=== PATIENT | male | born 1950 | race Caucasian/White ===

== ENCOUNTER 2017-10-14 10:04 | Outpatient (CLI) | payer MEDICARE ==
[~2017-10-14 10:04] MED LIST: Iopamidol 370 76% 100 ML VIAL ONE
--- NOTE | 2017-10-14 13:18 | CT ---
CT OF ABDOMEN AND PELVIS WITH AND WITHOUT CONTRAST CT UROGRAM: DATE: 10/14/17. COMPARISON: None. HISTORY: Elevated liver enzymes, microhematuria., history of prostate cancer. TECHNIQUE: Serial axial CT imaging is obtained at 5 mm intervals from the lung bases through the pubic symphysis with and without IV contrast using a CT urogram protocol. Coronal reformatted imaging obtained. FINDINGS: The imaged lung bases are unremarkable. Incompletely imaged transvenous pacing device present. No free intraperitoneal air. Multiple gallstones are present. The liver, spleen, pancreas, and adrenal glands are unremarkable. The kidneys demonstrate multiple focal areas of cortical thinning, evidence of bilateral scar. No so lid renal mass, nephrolithiasis, or evidence of obstructive uropathy is noted. Postoperative clips are noted in the prostate bed, limiting detailed assessment of the prostate glan d/postoperative site. There is abnormal wall thickening of the sigmoid colon measuring at least 11-12 cm in length. This i s best seen on axial image 79. There is an exophytic soft tissue mass which is located along the superior and left lateral margin o f the abnormal colon with marked luminal narrowing of the colon in this region. This suggests a tumo r either emanating from the colon or associated with the peripheral margin of the colon. This extri nsic soft tissue mass in the left hemipelvis measures at least 2.9 x 4.6 cm. There is stranding of t he adjacent pericolonic fat. There is an enlarged node in the presacral space to the right of midlin e on image 80 measuring 7 mm. There are enlarged nodes within the pericolonic fat within the left he mipelvis, measuring up to 9 mm in short axis dimension on image 74. There is no evidence for bowel obstruction. There is retroperitoneal lymphadenopathy, including a node in the aortocaval region measuring 1.5 cm short axis dimension. Enlarged nodes are seen along the course of the left common iliac artery measu ring up to 1.3 cm. Enlarged node measuring 1.7 cm in short axis dimension is seen posterior to the e xternal iliac artery on the left. No enlarged inguinal nodes. No lymphadenopathy is noted in the ri ght hemipelvis otherwise. Imaged osseous structures demonstrate no worrisome lytic or blastic lesions. Bilateral L5 pars defec ts are present with mild anterolisthesis of L5 on S1. IMPRESSION: Prominent irregular area of wall thickening involving the sigmoid colon with extrinsic mass lesion in the left hemipelvis. This is highly suspicious for malignancy, likely on the basis of colonic malig ryan. There is lymphadenopathy seen regionally within the pericolonic fat as well as within the lef t hemipelvis and retroperitoneum. CODE T POS: KIANA
--- NOTE | 2017-10-14 15:14 | NM ---
RADIONUCLIDE BONE SCAN: History: Prostate cancer. Initial staging. FINDINGS: Heterogeneous uptake involves the shoulders, knees, and ankles and feet. Urinary bladder initially ob scures the sacrum. Images obtained after draining of the bladder shows contamination of the right ant erior tissues. No abnormal bone uptake is apparent on the posterior view. IMPRESSION: Degenerative changes, most pronounced at the right foot. No scintigraphic evidence of skeletal metast ases. POS: ROBERT
== END 2017-10-14 10:05 | disposition home or self-care (01) ==
LOC: CT 10:04
PROVIDERS: ATTEND Urology
DX: C61 Malignant neoplasm of prostate (principal); R31.29 Other microscopic hematuria; R74.8 Abnormal levels of other serum enzymes; I10 Essential (primary) hypertension
CPT/HCPCS: 74178; 78306; 82565; A9503

== ENCOUNTER 2018-11-13 08:39 | Emergency (ER) | payer MEDICARE ==
[2018-11-13 09:45] LABS: #Eosinphils 0.2 thou/uL (0.0-0.7); #Lymphocytes 1.3 thou/uL (1.20-3.40); #Monocytes 0.6 thou/uL (0.11-0.59); #Neutrophils 5.1 thou/uL (1.40-6.50); %Basophils 0.7 % (0.0-1.0); %Eosinophils 3.4 % (0.0-10.0); %Lymphocytes 18.3 % (21.0-51.0); %Monocytes 7.6 % (0.0-10.0); %Neutrophils 70.1 % (42.0-75.0); Hemoglobin 13.6 g/dL (14.0-18.0); Mean Corpuscular HGB CONC 33.5 g/dL (32.0-36.0); Mean Corpuscular Hemoglobin 30.4 pg (27.0-31.0); Mean Corpuscular Volume 90.7 fL (78.0-98.0); Platelet Count 273 thou/uL (130-400); RBC Distribution Width 13.2 % (11.5-14.5); Red Blood Cell (RBC) Count 4.46 mill/uL (4.70-6.10); White Blood Cell (WBC) Count 7.3 thou/uL (4.8-10.8)
[2018-11-13 10:14] LABS: ALT (SGPT) 39 U/L (8-55); AST (SGOT) 30 U/L (5-34); Albumin 3.9 g/dL (3.4-4.8); Alkaline Phosphatase 111 U/L (40-150); Anion Gap 13 mmol/L (10-20); BUN (Urea Nitrogen) 17 mg/dL (8.4-25.7); Bilirubin, Total 1.5 mg/dL (0.2-1.2); Calc. Creatinine Clearance 0 mL/min (70-130); Calcium 9.5 mg/dL (7.8-10.44); Carbon Dioxide 29 mmol/L (23-31); Chloride 97 mmol/L (98-107); Estimated GFR-MDRD 44; Globulin 3.3 g/dL (2.4-3.5); Glucose 91 mg/dL (80-115); Potassium 3.4 mmol/L (3.5-5.1); Protein, Total 7.2 g/dL (5.8-8.1); Sodium 136 mmol/L (136-145)
== END 2018-11-13 11:45 | disposition home or self-care (01) ==
LOC: ERS 08:39
DX: K64.9 Unspecified hemorrhoids (principal); Z86.73 Personal history of transient ischemic attack (TIA), and cerebral infarction without residual deficits
CPT/HCPCS: 36416; 80053; 82274; 83630; 85025; 87045; 87046; 87324; 87328; 87329; 87449; 87899; 99285

== ENCOUNTER 2018-11-14 10:59 | Emergency (ER) | payer MEDICARE ==
--- NOTE | 2018-11-14 15:44 | RAD ---
PORTABLE CHEST 1 VIEW: Date: 11/14/18 Time: 1514 hours HISTORY: Preoperative evaluation. FINDINGS: Comparison made with exam of 12/14/17. The heart size is normal. The aorta is tortuous. A left-sided pacemaker device remains in place. No l obar consolidation, pneumothoraces, katty pulmonary edema, or pleural effusions are seen. IMPRESSION: No acute process. POS: KIANA
== END 2018-11-14 16:20 | disposition home or self-care (01) ==
LOC: ERS 10:59
DX: K62.89 Other specified diseases of anus and rectum (principal); K64.4 Residual hemorrhoidal skin tags; Z86.73 Personal history of transient ischemic attack (TIA), and cerebral infarction without residual deficits; Z79.899 Other long term (current) drug therapy
CPT/HCPCS: 71045

== ENCOUNTER 2018-11-18 10:57 | Inpatient (IN) | payer MEDICARE ==
[2018-11-18] MEDS ORDERED: Ondansetron ODT 4 MG TAB PO PRN (13:22)
[2018-11-18] MEDS ORDERED: Ondansetron PF 4 MG/2 ML Vial IVP PRN (13:22)
[2018-11-18 13:29] LABS: #Basophils 0.1 thou/uL (0.0-0.2); #Eosinphils 0.2 thou/uL (0.0-0.7); #Lymphocytes 1.2 thou/uL (1.20-3.40); #Monocytes 0.8 thou/uL (0.11-0.59); %Basophils 0.7 % (0.0-1.0); %Eosinophils 2.8 % (0.0-10.0); %Lymphocytes 14.8 % (21.0-51.0); %Monocytes 9.7 % (0.0-10.0); Hemoglobin 13.8 g/dL (14.0-18.0); Mean Corpuscular HGB CONC 33.5 g/dL (32.0-36.0); Mean Corpuscular Hemoglobin 30.6 pg (27.0-31.0); Mean Corpuscular Volume 91.3 fL (78.0-98.0); Mean Platelet Volume 9.4 fL (7.4-10.4); Platelet Count 250 thou/uL (130-400); RBC Distribution Width 13.1 % (11.5-14.5); Red Blood Cell (RBC) Count 4.52 mill/uL (4.70-6.10); White Blood Cell (WBC) Count 8.3 thou/uL (4.8-10.8)
--- NOTE | 2018-11-18 13:54 | PDOC.FPRHP ---
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 The pt's ex and caregivers were here to assist with the history. Pt has been seen in the ED 3x this week for these symptoms as well as some intermittent abdominal pain. Each workup was negative for any acute findings aside from mild dehydration. Caregiver noted that the patient's stools have changed throughout the week, initially having some blood and appearing yellow, and more recently containing mucous and being very foul smelling. Ex states that the pt is unable to keep almost anything down at this point and has not had a bowel movement in over a day which is abnormal for him which she attributes to his decreased PO intake. At this time the pt denies any abdominal pain or other symptoms. He is able to respond with non-verbal cues after reading prompts and is very cognitively sharp. Pt was diagnosed last year with a recurrence of his previously treated prostate cancer. Pt has had problems with esophageal strictures before requiring dilation. For full indepth medical history please refer to pt's narrative medical history in his physical chart. - Allergies/Adverse Reactions Allergies Allergy/AdvReac Type Severity Reaction Status Date / Time Iodine and Iodide Containing Allergy Verified 11/18/18 15:01 Produc - Home Medications Medication Instructions Recorded Confirmed Type Apixaban [Eliquis] 5 mg PO BID 11/18/18 11/18/18 History Atorvastatin Calcium 40 mg PO HS 11/18/18 11/18/18 History Carvedilol 6.25 mg PO BID-WM 11/18/18 11/18/18 History Divalproex [Depakote] 125 mg PO BID 11/18/18 11/18/18 History Escitalopram Oxalate 10 mg PO QAM 11/18/18 11/18/18 History Metronidazole [metroNIDAZOLE] 500 mg PO TID 11/18/18 11/18/18 History Omeprazole 10 mg PO DAILY 11/18/18 11/18/18 History Ranitidine HCl 150 mg PO BID 11/18/18 11/18/18 History Torsemide 20 mg PO DAILY 11/18/18 11/18/18 History Zinc Oxide [Desitin Cream] 1 applic TOP ASDIR PRN 11/18/18 11/18/18 History rOPINIRole HCl [Ropinirole HCl] 1 mg PO BID 11/18/18 11/18/18 History traZODone HCl [Trazodone HCl] 50 mg PO HS 11/18/18 11/18/18 History - History PMHx: CHF, afib - pacer, prostate CA, UTI, CVA, bowel resection, non- obstructive cardiomypathy, JOVANY, RLS, diverticulitis PSHx: Ankle surgery, esophageal dilation, colostomy with reversal FHx: Non contributory Social: Non contributory - Review of Systems ROS unobtainable: other (Difficult to obtain completely to due aphasia) General: reports: weight/appetite/sleep changes (decreased). denies: fever/ chills Respiratory: reports: cough (when eating). 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 denies: abdominal pain (none right now , intermittently earlier in the week) Genitourinary: reports: incontinence (voids in a pull up) Skin: reports: rashes (gluteal irritation). denies: jaundice Musculoskeletal: denies: swelling Neurological: reports: other (Denies any lightheadness or dizziness) - Vital signs BP: 116/63 HR: 69 RR: 18 Tmax: 98.0 Pox: 97% on RA Wt: 83.0 - Physical Exam Constitutional: NAD, awake, alert and oriented, well developed HEENT: normocephalic and atraumatic, EOMI, no scleral icterus Neck: FROM, no JVD Heart: RRR, normal S1/S2, no edema Lungs: CTAB, no respiratory distress, good air movement, no rales/rhonchi, no wheezing Abdomen: soft, non-tender -Abdomen: Hypoactive bowel sounds -Neurological: aphasia, ataxic upper extremities without FROM Skin: no jaundice -Skin: Pale, cap refill 3-4 seconds Heme/Lymphatic: no unusual bruising or bleeding Psychiatric: good judgment and insight, other (unable to otherwise asses) FMR H&P: Results - Labs Result Diagrams: 11/19/18 04:14 11/19/18 04:14 Lab results: WBC 8.3 thou/uL (4.8-10.8) 11/18/18 12:47 Hgb 13.8 g/dL (14.0-18.0) L 11/18/18 12:47 Hct 41.3 % (42.0-52.0) L 11/18/18 12:47 MCV 91.3 fL (78.0-98.0) 11/18/18 12:47 Plt Count 250 thou/uL (130-400) 11/18/18 12:47 Neutrophils % 72.0 % (42.0-75.0) 11/18/18 12:47 FMR H&P: A/P - Problem List (1) Intractable vomiting with nausea Current Visit: Yes Status: Acute Code(s): R11.2 - NAUSEA WITH VOMITING, UNSPECIFIED (2) Hyperbilirubinemia Current Visit: Yes Status: Acute Code(s): E80.6 - OTHER DISORDERS OF BILIRUBIN METABOLISM (3) CHF (congestive heart failure) Current Visit: Yes Status: Chronic Code(s): I50.9 - HEART FAILURE, UNSPECIFIED Qualifiers: Heart failure chronicity: chronic (4) History of CVA (cerebrovascular accident) Current Visit: Yes Status: Chronic Code(s): Z86.73 - PRSNL HX OF TIA (TIA), AND CEREB INFRC W/O RESID DEFICITS (5) Diverticulosis Current Visit: Yes Status: Chronic Code(s): K57.90 - DVRTCLOS OF INTEST, PART UNSP, W/O PERF OR ABSCESS W/O BLEED (6) Prostate CA Current Visit: Yes Status: Chronic Code(s): C61 - MALIGNANT NEOPLASM OF PROSTATE - Plan Chronic diarrhea - Stool ova and parasite, Stool cultures, Fecal lactoferrin - C. diff test earlier this week was indeterminate, will repeat - ESR and TSH ordered to look for chronic inflammation or endocrine cause of diarrhea - CT abdomen and pelvis with and without - pt has allergy to contrast so will pre-medicate today and perform study tomorrow - GI consulted - appreciate recs Intractable vomiting with nausea and mild dehydration - Advance diet as tolerated - PRN zofran available - IVF w/ NS @ 120 Dysphagia - Hx of esophageal dilation - Speech therapy consult Hyperbilirubinemia - Tbili - 1.6 - Continue to trend CHF - Hold torsemide due to being volume down Afib - Continue eliquis - Will hold if any need for procedural intervention Hx CVA w/ Aphasia - Continue home meds, eliquis Prostate Cancer -Will await imaging from CT ab/pelvis. Could exacerbating symptoms as above. -May consider Oncology consult. Condition: Stable Code Status: DNAR Diet: AAT IVF: NS @ 120 Dispo: Admit to oncology, CT tomorrow, GI consulting, expected LOS >48hr FMR H&P: Upper Level - Pertinent history I was present with my international marketing intern during the interview and HPI. I agree with the typed history above. I made edits as I saw fit. Pt has very well typed out narrative medical history in his chart available for review if more information is needed. - Pertinent findings Pt had increased capillary refill. He had no pain to palpation in his abdomen. Pt had normal BS. Pt is aphasic from prior stroke. - Plan Date/Time: 11/18/18 1351 I, Alf Fitzgerald, have evaluated this patient and agree with findings/ plan as outlined by international marketing intern resident. Pertinent changes/additions are listed here. Chronic Diarrhea -Agree with plan above. Elevated Bilirubin -Will continue to trend CMP. -Will await results of CT imaging. May consider RUQ U/S Prostate Cancer -Getting CT with contrast. Will await results. -May consider consultation with Oncology. Will continue all his home meds for his chronic medical problems at this time. Addendum - Attending - Attending Attestation Date/Time: 11/19/18 1100 I personally evaluated the patient and discussed the management with Dr. Rolon on 11/18/2018 I agree with the History, Examination, Assessment and Plan documented above with any addition or exceptions noted below - 67 yo male w/ hx of aphasia 2/2 CVA in 2013, A-fib, RLS, prostate cancer presents with nausea, vomiting, and diarrhea for the last 1 month. Pt has been seen in the ED 3x this week for these symptoms as well as some intermittent abdominal pain. Has had negative stool studies. Caregiver noted that the patient's stools have changed throughout the week, initially having some blood and appearing yellow, and more recently containing mucous and being very foul smelling. PMH/PSH/Meds/All reviewed and agree with resident's documentation. Afebrile VSS Exam repeated by me and agree with resident's findings. A/P: 1) Dehydration- Admit to medical; hydrate with IVF. Monitor lytes. 2) Chronic N/V/D - will repeat stool studies. Obtain CT abd/pelvis. GI already consulted. 3) Afib- continue home meds.
[2018-11-18 14:04] LABS: ALT (SGPT) 23 U/L (8-55); AST (SGOT) 28 U/L (5-34); Albumin 4.2 g/dL (3.4-4.8); Alkaline Phosphatase 109 U/L (40-150); Anion Gap 14 mmol/L (10-20); BUN (Urea Nitrogen) 14 mg/dL (8.4-25.7); Bilirubin, Total 1.6 mg/dL (0.2-1.2); Calc. Creatinine Clearance 60 mL/min (70-130); Calcium 9.8 mg/dL (7.8-10.44); Carbon Dioxide 29 mmol/L (23-31); Chloride 97 mmol/L (98-107); Estimated GFR-MDRD 51; Globulin 3.7 g/dL (2.4-3.5); Glucose 84 mg/dL (80-115); Lipase 30 U/L (8-78); Potassium 3.2 mmol/L (3.5-5.1); Protein, Total 7.9 g/dL (5.8-8.1); Sodium 137 mmol/L (136-145)
[2018-11-18] MEDS ORDERED: Boudreaux's Butt Paste 60 GM TUBE TOP PRN (15:02)
[2018-11-18] MEDS ORDERED: Nystatin/Triamcinolone Cream 15 GM TUBE TOP PRN (15:02)
[2018-11-18] MEDS ORDERED: Zinc Oxide 20% Oint 30 GM TUBE TOP PRN (15:19)
[2018-11-18] MEDS: Sodium Chloride 0.9% 1,000 ML IV SCH ×2 (15:26→23:06)
[2018-11-18] MEDS: Carvedilol 6.25 MG TAB PO SCH (17:30)
[2018-11-18] MEDS ORDERED: Potassium Chloride 20 MEQ TAB PO SCH (17:45)
[2018-11-18] MEDS: Atorvastatin Calcium 40 MG TAB PO SCH (20:07)
[2018-11-18] MEDS: rOPINIRole HCl 1 MG TAB PO SCH (20:07)
[2018-11-18] MEDS: predniSONE 50 MG TAB PO SCH (20:08)
[2018-11-18] MEDS: Apixaban 5 MG TAB PO SCH (20:08)
[2018-11-18] MEDS: traZODone HCl 50 MG TAB PO SCH (20:08)
[2018-11-18] MEDS: Divalproex Sodium 125 mg Sprinkle Capsule PO SCH (20:08)
[2018-11-18] MEDS: Pantoprazole 40 MG VIAL IVP SCH (20:10)
[2018-11-19] MEDS: predniSONE 50 MG TAB PO SCH ×2 (01:58→08:04)
--- NOTE | 2018-11-19 03:28 | CON ---
DATE OF CONSULTATION: 11/18/2018 REASON FOR CONSULTATION: Chronic nausea, vomiting, and diarrhea. CONSULTING PHYSICIAN: Akbar Rolon DO HISTORY OF PRESENT ILLNESS: The patient is a 67-year-old male with past medical history of aphasia secondary to a cerebrovascular accident in 2012, prostate cancer status post treatment, congestive heart failure, hypertension, and obstructive sleep apnea, who was admitted to the hospital for evaluation of chronic nausea, vomiting, and diarrhea. Per chart review, the patient had been having increased nausea, vomiting, and diarrhea over the last 30 days for which the patient had sought healthcare assistance both at the [facility] ER as well as the [facility] ER over the last week to week and a half. On evaluation in the ER, there was noted to be no significant abnormalities and he was ultimately discharged to home. However, he did not experience any relief in his symptoms with more conservative management and was subsequently evaluated in the GI Outpatient Clinic earlier today. The patient currently states that he has been having the diarrhea for the last 30 days characterized as having 7-10 liquid bowel movements per day ([place] 7) with no difficulty with defecation. His stools are characterized more as watery mucoid like stools but upon questioning the patient about possible blood in his stool, he did state the affirmative. This was associated with increased generalized abdominal pain although per review of the outpatient workup earlier today, it seemed to be more concentrated in the left lower quadrant. Other than that, the patient endorses increased fecal urgency, weight loss (unknown amount) during the same time but denies any fevers, chills, dysphagia, odynophagia, or constipation. Of note, during the course of this interview, no additional family members were at bedside with the bulk of the information received from the patient himself. However, he is mostly nonverbal, but was able to nod and shake his head to the affirmative and negative respectively. REVIEW OF SYSTEMS: A 10-category review of systems was reviewed with the patient with all responses negative except for the pertinent positives as listed in the HPI. PAST MEDICAL HISTORY: As per HPI. PAST SURGICAL HISTORY: EGD with esophageal dilation in the past, ankle surgery, colonic resection with colostomy, and subsequent reanastomosis. FAMILY HISTORY: Denies any GI malignancies. SOCIAL HISTORY: Denies any tobacco, alcohol, or illicit drug use. OUTPATIENT MEDICATIONS: Reviewed. ALLERGIES: IODINE. PHYSICAL EXAMINATION: VITAL SIGNS: Temperature 97.5, pulse 70, blood pressure 118/65, respiratory rate 16, saturating 98% on room air. GENERAL: The patient was lying in bed, in no acute distress. Alert, but difficult to assess sensorium due to his aphasic status. HEENT: Normocephalic, atraumatic. NECK: Supple. No JVD or scleral icterus noted. CARDIOVASCULAR: Regular rate and rhythm with no discernible murmurs, gallops, or rubs. RESPIRATORY: Clear to auscultation bilaterally with no discernible wheezes or rales. ABDOMEN: Normoactive bowel sounds. Soft, nontender, and nondistended. EXTREMITIES: No cyanosis, clubbing, or edema. LABORATORY DATA: CBC with a white blood cell count of 8.3, hemoglobin 13.8, hematocrit 41.3, and platelets 250. Chemistry with a sodium of 137, potassium 3.2, chloride 97, CO2 of 29, BUN 14, creatinine 1.4, glucose 84, AST 28, ALT 23, alkaline phosphatase 109, total bilirubin 1.6, CRP 1.48, albumin 4.2, lipase 30, TSH 0.767. IMAGING DATA: Chest x-ray performed on November 14, 2018, showed a left-sided pacemaker device in place with no lobar consolidation pneumothoraces or pleural effusion. His most recent EGD was performed on January 04, 2018, which showed evidence of Nancy esophagitis and a small esophageal stricture that was then subsequently dilated. Most recent colonoscopy was on November 04, 2017, which showed severe sigmoid diverticulosis with luminal narrowing of the colon in that region, but no other abnormalities. ASSESSMENT AND PLAN: The patient is a 67-year-old male with past medical history of aphasia secondary to cerebrovascular accident, prostate cancer status post treatment, congestive heart failure, hypertension, obstructive sleep apnea, diverticulitis status post colonic resection and reanastomosis, presenting with nausea, vomiting, diarrhea, and abdominal pain. Diarrhea/abdominal pain. The patient is presenting with increased nausea, vomiting, and diarrhea that has been present for approximately the last 30 days, characterized as having approximately 7-10 liquid bowel movements per day. Given his significant healthcare exposures in the past, the possibility of an infectious etiology is more likely, especially with recent testing in the [facility] showing an indeterminate stool study for Clostridium difficile. However, given the chronic nature of this, other colonic/stool pathogen cannot be ruled out at this time although stool studies were obtained fairly recently and were negative. Differential could include infectious etiology, esophagitis, gastritis, bacterial gastroenteritis (less likely given time frame) mesenteric ischemic colitis and/or GI neoplasm (much less likely given negative studies in the last year). RECOMMENDATIONS: 1. We would repeat his infectious stool studies for possible pathogen that might be contributing to his current clinical picture. 2. We would obtain a CT of the abdomen and pelvis for a more global picture for any intraabdominal pathology. 3. If the above studies are negative, we then proceed with any repeat EGD and colonoscopy for intraluminal evaluation. 4. Pain control per primary team. 5. We would start the patient on aggressive antiemetic support with scheduled Zofran and promethazine for any breakthrough symptoms. 6. We would start the patient primarily on a liquid diet and advance as tolerated. We will continue to follow. Please call with any questions. Job ID: [id number]
[2018-11-19 04:42] LABS: #Lymphocytes 0.6 thou/uL (1.20-3.40); #Monocytes 0.1 thou/uL (0.11-0.59); #Neutrophils 5.7 thou/uL (1.40-6.50); %Eosinophils 0.1 % (0.0-10.0); %Lymphocytes 8.9 % (21.0-51.0); %Monocytes 1.7 % (0.0-10.0); %Neutrophils 89.4 % (42.0-75.0); Hemoglobin 12.7 g/dL (14.0-18.0); Mean Corpuscular HGB CONC 34.4 g/dL (32.0-36.0); Mean Corpuscular Hemoglobin 31.4 pg (27.0-31.0); Mean Corpuscular Volume 91.1 fL (78.0-98.0); Mean Platelet Volume 9.3 fL (7.4-10.4); Platelet Count 219 thou/uL (130-400); Red Blood Cell (RBC) Count 4.05 mill/uL (4.70-6.10); White Blood Cell (WBC) Count 6.4 thou/uL (4.8-10.8)
[2018-11-19 05:08] LABS: ALT (SGPT) 19 U/L (8-55); AST (SGOT) 24 U/L (5-34); Albumin 3.5 g/dL (3.4-4.8); Alkaline Phosphatase 94 U/L (40-150); Anion Gap 11 mmol/L (10-20); BUN (Urea Nitrogen) 14 mg/dL (8.4-25.7); Bilirubin, Total 1.3 mg/dL (0.2-1.2); Calc. Creatinine Clearance 70 mL/min (70-130); Calcium 8.9 mg/dL (7.8-10.44); Carbon Dioxide 25 mmol/L (23-31); Chloride 103 mmol/L (98-107); Estimated GFR-MDRD 60; Globulin 3.2 g/dL (2.4-3.5); Glucose 132 mg/dL (80-115); Potassium 4.1 mmol/L (3.5-5.1); Protein, Total 6.7 g/dL (5.8-8.1); Sodium 135 mmol/L (136-145)
--- NOTE | 2018-11-19 05:29 | PDOC.FM ---
- Subjective Subjective: Doing well. No complaints. No nausea and vomiting overnight. He is not eating much currently. - Objective MAR Reviewed: Yes Vital Signs & Weight: Vital Signs (12 hours) Temp Pulse Resp BP Pulse Ox 11/19/18 03:29 97.5 F L 69 16 103/64 96 11/18/18 23:25 97.9 F 70 16 102/60 97 11/18/18 20:10 98 11/18/18 20:00 97.5 F L 70 16 118/65 98 Weight Admit Weight 83.007 kg Weight 83.007 kg Result Diagrams: 11/19/18 04:14 11/19/18 04:14 Phys Exam - Physical Examination Constitutional: NAD HEENT: moist MMs Neck: supple Respiratory: clear to auscultation bilateral Cardiovascular: RRR, no significant murmur Gastrointestinal: soft, non-tender, positive bowel sounds Musculoskeletal: no edema, pulses present Neurological: non-focal, moves all 4 limbs Lymphatic: no nodes Psychiatric: normal affect Skin: no rash Dx/Plan (1) Intractable vomiting with nausea Code(s): R11.2 - NAUSEA WITH VOMITING, UNSPECIFIED Status: Acute (2) Hyperbilirubinemia Code(s): E80.6 - OTHER DISORDERS OF BILIRUBIN METABOLISM Status: Acute (3) CHF (congestive heart failure) Code(s): I50.9 - HEART FAILURE, UNSPECIFIED Status: Chronic Qualifiers: Heart failure chronicity: chronic (4) History of CVA (cerebrovascular accident) Code(s): Z86.73 - PRSNL HX OF TIA (TIA), AND CEREB INFRC W/O RESID DEFICITS Status: Chronic (5) Diverticulosis Code(s): K57.90 - DVRTCLOS OF INTEST, PART UNSP, W/O PERF OR ABSCESS W/O BLEED Status: Chronic (6) Prostate CA Code(s): C61 - MALIGNANT NEOPLASM OF PROSTATE Status: Chronic - Plan Plan: Chronic diarrhea - Stool ova and parasite, Stool cultures for camp & E. coli, Fecal lactoferrin, C. diff, Fecal fat: pending - ESR: 21 and TSH: 0.77, so unlikely chronic inflammation or endocrine causes of diarrhea - CT abdomen and pelvis shows pericolonic fat stranding and abd LAD significant for possible neoplastic process. Colonoscopy recommended if stool studies negative. - GI consulted - appreciate recs. Will repeat EGD if studies are negative. -Scheduled Zofran for symptom relief and promethazine for breakthrough symptoms Intractable vomiting with nausea and mild dehydration - Liquid diet & advance as tolerated - IVF w/ NS @ 120 Dysphagia - Hx of esophageal dilation - Speech therapy consult Hyperbilirubinemia - Tbili - 1.6 > 1.3 - Continue to trend CHF - Hold torsemide due to being volume down Afib - Continue eliquis - Will hold if any need for procedural intervention Hx CVA w/ Aphasia - Continue home meds, eliquis Prostate Cancer Radiation in 2000 -May consider Oncology consult. Condition: Stable Code Status: DNAR Diet: Clear Liquids, AAT IVF: NS @ 120 Dispo: Admit to oncology, CT tomorrow, GI consulting, expected LOS >48hr
[2018-11-19] MEDS ORDERED: Promethazine HCl 25 MG/ML VIAL IM/IV PRN (06:34)
[2018-11-19] MEDS: Sodium Chloride 0.9% 1,000 ML IV SCH ×3 (06:36→21:35)
[2018-11-19] MEDS ORDERED: Sodium Chloride 0.9% 500 ML IV SCH (07:30)
[2018-11-19] MEDS ORDERED: Sodium Chloride 0.9% 500 ML IVPB SCH (07:45)
[2018-11-19] MEDS ORDERED: diphenhydrAMINE 50 MG CAP PO SCH (08:00)
[2018-11-19] MEDS: Ondansetron PF 4 MG/2 ML Vial IVP SCH ×3 (08:04→19:43)
[2018-11-19] MEDS ORDERED: Enoxaparin Sodium 40 MG/0.4 ML SYRINGE SC SCH (09:00)
[2018-11-19] MEDS ORDERED: Prevnar 13-Val Conj/PF 0.5 ML SYRINGE IM ONE (09:00)
[2018-11-19] MEDS: Apixaban 5 MG TAB PO SCH ×2 (09:41→21:34)
[2018-11-19] MEDS: rOPINIRole HCl 1 MG TAB PO SCH ×2 (09:41→21:34)
[2018-11-19] MEDS: Divalproex Sodium 125 mg Sprinkle Capsule PO SCH ×2 (09:41→21:34)
[2018-11-19] MEDS: Carvedilol 6.25 MG TAB PO SCH ×2 (09:41→16:37)
[2018-11-19] MEDS: Escitalopram Oxalate 10 mg Tablet PO SCH (09:42)
--- NOTE | 2018-11-19 09:43 | CT ---
Exam: CT ABDOMEN WITH AND WITHOUT CONTRAST CT PELVIS WITH AND WITHOUT CONTRAST: HISTORY: Persistent nausea, vomiting, and diarrhea. COMPARISON: 10/14/2017. FINDINGS: Abdomen CT: Dependent atelectatic changes in lung bases. Heart is enlarged. There are transvenous pacing wires. No significant pericardial fluid. CT evidence of cholelithiasis. Appropriate enhancement of the liver, spleen, pancreas, and adrenal glands. Symmetric enhancement of the kidneys. There is evidence of multifocal renal cortical thinning, likely due to scar from remote insult. Bilaterally no obstructive uropathy.. No gastrohepatic, retrocrural lymphadenopathy. No mesenteric mass, lymphadenopathy, free air or fluid. Gastric mucosa, duodenum and multiple normal caliber small bowel loops are identified. No evidence of high-grade obstruction. Ileocecal junction is normal. Normal caliber appendix. Bowel wall thickening with mild pericolonic fat stranding and lymphadenopathy involving the distal sigmoid colon and rectum. There is circumferential mucosal thickening and bowel wall thickening at the level of rectum. There are scattered nonspecific retroperitoneal lymph nodes. There is an enlarged aortocaval lymph no de measuring 2.4 x 2.3 cm. Additional enlarged pericaval lymph node measures 2.1 x 1.[address]: Post surgical changes likely due to previous prostatectomy. Unremarkable urinary bladder. Small amount of free fluid in the pelvis. No pelvic mass or free air. Enlarged left external iliac lymph node measuring 1.5 x 1.4 cm. No lytic or blastic lesions in the osseous structures. Bilateral pars defects at L5. Grade 1 anteroli sthesis is noted on the lateral maternity floor supervisor. IMPRESSION: Bowel wall thickening with pericolonic fat stranding involving the distal sigmoid colon and rectum. T here is evidence of lymphadenopathy, as described above. Primary consideration should be a neoplastic process. Colonoscopy is recommended. An infectious or inflammatory process is in the diffe rential consideration, though is less favored. Transcribed Date/Time: 11/19/2018 11:04 AM
[2018-11-19] MEDS: Pantoprazole 40 MG VIAL IVP SCH ×2 (09:45→21:34)
[2018-11-19] MEDS: Acetaminophen 325 MG TAB PO PRN (14:21)
[2018-11-19] MEDS: Atorvastatin Calcium 40 MG TAB PO SCH (21:34)
[2018-11-19] MEDS: traZODone HCl 50 MG TAB PO SCH (21:34)
[2018-11-20] MEDS: Ondansetron PF 4 MG/2 ML Vial IVP SCH ×3 (01:00→09:21)
--- NOTE | 2018-11-20 05:58 | PDOC.FM ---
- Subjective Subjective: Not eating much, he is not very hungry. - Objective MAR Reviewed: Yes Vital Signs & Weight: Vital Signs (12 hours) Temp Pulse Resp BP Pulse Ox 11/19/18 19:56 94 L 11/19/18 19:42 97.4 F L 70 18 115/62 94 L Weight Admit Weight 83.007 kg Weight 84.822 kg I&O: 11/18/18 11/19/18 11/20/18 06:59 06:59 06:59 Intake Total 1548 Output Total 500 Balance 1548 -500 Result Diagrams: 11/19/18 04:14 11/20/18 07:23 Phys Exam - Physical Examination Constitutional: NAD HEENT: moist MMs Neck: supple Respiratory: clear to auscultation bilateral Cardiovascular: RRR, no significant murmur Gastrointestinal: soft, non-tender, positive bowel sounds Musculoskeletal: no edema, pulses present Neurological: non-focal, moves all 4 limbs Lymphatic: no nodes Psychiatric: normal affect Skin: no rash Dx/Plan (1) Intractable vomiting with nausea Code(s): R11.2 - NAUSEA WITH VOMITING, UNSPECIFIED Status: Acute (2) Hyperbilirubinemia Code(s): E80.6 - OTHER DISORDERS OF BILIRUBIN METABOLISM Status: Acute (3) CHF (congestive heart failure) Code(s): I50.9 - HEART FAILURE, UNSPECIFIED Status: Chronic Qualifiers: Heart failure chronicity: chronic (4) History of CVA (cerebrovascular accident) Code(s): Z86.73 - PRSNL HX OF TIA (TIA), AND CEREB INFRC W/O RESID DEFICITS Status: Chronic (5) Diverticulosis Code(s): K57.90 - DVRTCLOS OF INTEST, PART UNSP, W/O PERF OR ABSCESS W/O BLEED Status: Chronic (6) Prostate CA Code(s): C61 - MALIGNANT NEOPLASM OF PROSTATE Status: Chronic - Plan Plan: Chronic diarrhea - Stool ova and parasite, Stool cultures for camp & E. coli, Fecal lactoferrin, C. diff, Fecal fat: pending, all but fecal fat uncollected - ESR: 21 and TSH: 0.77, so unlikely chronic inflammation or endocrine causes of diarrhea - CT abdomen and pelvis shows bowel wall thickening and pericolonic fat stranding around the sigmoid and rectum, as well as abd LAD significant for possible neoplastic process, discussed with pt. Colonoscopy recommended if stool studies negative. - GI consulted - appreciate recs. Possible colonoscopy tomorrow Intractable vomiting with nausea and mild dehydration - Liquid diet & advance as tolerated - IVF w/ NS @ 120 -500 cc bolus yesterday -Tolerating PO without nausea and vomiting -Will change zofran to prn. Adding on Megace. Dysphagia - Hx of esophageal dilation - Speech therapy consult, still pending Hyperbilirubinemia - Tbili - 1.6 > 1.3 - Continue to trend CHF - Held torsemide due to being volume down Afib - Continue eliquis - Will hold if any need for procedural intervention Hx CVA w/ Aphasia - Continue home med: Eliquis Prostate Cancer Radiation in 2000 -May consider Oncology consult. -Checking a PSA to rule out metastasis Line: Peripheral DVT Prophylaxis: Eliquis Condition: Stable Code Status: DNAR Diet: Clear Liquids, AAT IVF: NS @ 120 Dispo: Waiting for GI recs or possible colonoscopy.
[2018-11-20 07:53] LABS: ALT (SGPT) 36 U/L (8-55); AST (SGOT) 37 U/L (5-34); Albumin 3.4 g/dL (3.4-4.8); Alkaline Phosphatase 86 U/L (40-150); Anion Gap 10 mmol/L (10-20); BUN (Urea Nitrogen) 12 mg/dL (8.4-25.7); Calc. Creatinine Clearance 81 mL/min (70-130); Calcium 8.9 mg/dL (7.8-10.44); Carbon Dioxide 25 mmol/L (23-31); Chloride 105 mmol/L (98-107); Estimated GFR-MDRD 66; Globulin 2.9 g/dL (2.4-3.5); Glucose 116 mg/dL (80-115); Potassium 3.7 mmol/L (3.5-5.1); Protein, Total 6.3 g/dL (5.8-8.1); Sodium 136 mmol/L (136-145)
[2018-11-20] MEDS: Carvedilol 6.25 MG TAB PO SCH ×2 (09:22→17:39)
[2018-11-20] MEDS: rOPINIRole HCl 1 MG TAB PO SCH ×3 (09:22→21:06)
[2018-11-20] MEDS: Divalproex Sodium 125 mg Sprinkle Capsule PO SCH ×2 (09:22→21:01)
[2018-11-20] MEDS: Apixaban 5 MG TAB PO SCH ×2 (09:22→21:01)
[2018-11-20] MEDS: Pantoprazole 40 MG VIAL IVP SCH ×2 (09:22→21:01)
[2018-11-20] MEDS: Escitalopram Oxalate 10 mg Tablet PO SCH (09:22)
[2018-11-20] MEDS: Sodium Chloride 0.9% 1,000 ML IV SCH ×2 (09:23→16:44)
[2018-11-20] MEDS ORDERED: Ondansetron PF 4 MG/2 ML Vial IVP PRN (10:20)
--- NOTE | 2018-11-20 10:48 | PRG ---
DATE OF SERVICE: 11/20/2018 Mr. Bryan is resting quietly in bed, in no acute distress. CT of the abdomen and pelvis showed bowel wall thickening with pericolonic fat stranding involving the distal sigmoid colon and rectum. There was evidence of lymphadenopathy with primary consideration given to a neoplastic process. Colonoscopy has been recommended and this is going to be undertaken tomorrow per the GI Service. I would recommend we go ahead and check a PSA, given his remote history of prostate cancer to ensure that this is not metastatic to the colon. In the event clinically, he is resting quietly and in no distress, and we will continue to follow with the GI Service. Job ID: [id number]
[2018-11-20] MEDS: Megestrol Acetate 40 MG TAB PO SCH ×3 (14:29→21:02)
[2018-11-20] MEDS: traZODone HCl 50 MG TAB PO SCH (21:01)
[2018-11-20] MEDS: Atorvastatin Calcium 40 MG TAB PO SCH (21:01)
--- NOTE | 2018-11-20 21:04 | PRG ---
DATE OF SERVICE: 11/19/2018 REASON FOR CONSULTATION: Chronic nausea and vomiting, and diarrhea. SUBJECTIVE: Per patient, family and nursing staff, the patient did not have any acute events or problems overnight. He currently denies any nausea, vomiting or diarrhea and has not had any of these symptoms during this admission. I was able to communicate with him via dry [employer] board and at this point in time, he states that he is doing well with no current problems. OBJECTIVE: VITAL SIGNS: Temperature 98.2, pulse 70, blood pressure 108/59, respiratory rate 18. Saturating 100% on room air. GENERAL: The patient is lying in bed, in no acute distress, alert and oriented x3 per communication with dry erase board. CARDIOVASCULAR: Regular rate and rhythm. RESPIRATORY: Clear to auscultation bilaterally. ABDOMEN: Normoactive bowel sounds. Soft, nontender, nondistended. EXTREMITIES: No cyanosis, clubbing, or edema. LABORATORY DATA: CBC with a white blood cell count of 6.4, hemoglobin 12.7, hematocrit 36.9, platelets 219. Chemistry with a sodium of 135, potassium 4.1, chloride 103, CO2 of 25, BUN 14, creatinine 1.2, glucose 132, AST 24, ALT 19, alkaline phosphatase 94, and total bilirubin 1.3. IMAGING DATA: CT of the abdomen and pelvis was obtained on November 19, 2018, which showed cardiomegaly with transvenous pacing wires, but no significant pericardial fluid. The gastric, duodenal and small bowel loops looked normal without any evidence of high-grade obstruction. However, there was increased bowel wall thickening with mild pericolonic fat stranding and lymphadenopathy involving the distal sigmoid colon and rectum. There was also circumferential mucosal thickening of the bowel wall at the rectum as well. Scattered nonspecific retroperitoneal lymph nodes were seen in addition to a large aortocaval lymph node measuring 2.4 x 2.3 cm in addition to a pericaval lymph node measuring 2.1 x 1.2 cm. 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 This seems to be resolving. Diarrhea/abdominal pain. The patient is presenting with complaints of chronic nausea, vomiting, and diarrhea that had been present for approximately the last 30 days. However, during this admission, he has not shown any of these symptoms and rather seems to have complete resolution of the symptoms. He has been unable to provide a stool sample for evaluation of Clostridium difficile making the likelihood of an infectious etiology much less likely. However, CT of the abdomen and pelvis is now showing a thickening of the sigmoid and rectal wall, which was also seen during colonoscopy performed approximately 1 year ago but seems to be now associated with increased lymphadenopathy concerning for possible neoplastic process. RECOMMENDATIONS: 1. Would attempt to repeat the infectious stool studies given the indeterminate C. diff colitis in the recent past; however, if he is unable to produce a bowel movement, I would then proceed with EGD and colonoscopy for further evaluation. 2. Pain control per primary team. 3. Continue aggressive antiemetic support. 4. We will continue liquid diet for now and advance as tolerated. 5. We will continue to follow. Please call with any questions. Job ID: [id number]
--- NOTE | 2018-11-20 22:06 | PRG ---
DATE OF SERVICE: 11/20/2018 REASON FOR CONSULTATION: Chronic nausea and vomiting, diarrhea. SUBJECTIVE: Per nursing staff and speaking with the patient who was able to communicate via gestures and the dry erase board, there were no acute events or problems overnight. He did have a larger bowel movement earlier this afternoon, but has not had any additional bowel movement since then. Currently, he denies any nausea, vomiting, abdominal pain, hematemesis, melena, or hematochezia. OBJECTIVE: VITAL SIGNS: Temperature 98.1, pulse 70, blood pressure 109/66, respiratory rate 20, saturating 95% on room air. GENERAL: The patient was lying in bed, in no acute distress. Alert and oriented x3, per communication with dry erase board. CARDIOVASCULAR: Regular rate and rhythm. RESPIRATORY: Clear to auscultation bilaterally. ABDOMEN: Normoactive bowel sounds. Soft, nontender, nondistended. EXTREMITIES: No cyanosis, clubbing, or edema. LABORATORY DATA: Chemistry with a sodium of 136, potassium 3.7, chloride 105, CO2 of 25, BUN 12, creatinine 1.11, glucose 116. AST 37, ALT 36, alkaline phosphatase 86, total bilirubin 1.0. IMAGING DATA: No current GI imaging is available for review. ASSESSMENT AND PLAN: The patient is a 67-year-old male with past medical history of aphasia secondary to cerebrovascular accident, prostate cancer, status post treatment, congestive heart failure, hypertension, obstructive sleep apnea, diverticulitis, status post colonic resection and reanastomosis, presenting with chronic nausea, vomiting, diarrhea, and abdominal pain. Nausea and vomiting. During the course of this admission, the patient has not exhibited any episodes of vomiting nor has he described any increased nausea that he states had been present prior to his admission. At this point, this portion of his constellation of symptoms seems to have resolved. Recommendations: Would continue to monitor patient for increased nausea and vomiting with antiemetic support as needed. Diarrhea/abdominal pain. The patient is presenting with chronic diarrhea that he states has been present for the last 30 days. However, during this admission, he had not had a bowel movement until earlier today when he did have a larger liquid bowel movement. Given his recent testing indeterminate for Clostridium difficile, retesting for this particular infection is important and could be contributing to his current clinical state. However, the CT of the abdomen and pelvis is showing thickening of the sigmoid and rectal romero which could be associated with his prior diverticulitis and surgical resection contributing to a possible colonic stricture or stenosis. This could in turn generate an encopresis type picture and clinically look like chronic diarrhea. Recommendations: 1. We will follow up on the infectious stool studies for possible infectious etiology. If negative for obvious infection, we would then proceed with EGD and colonoscopy at that time. 2. Pain control per primary team. 3. We would continue liquid diet for now. We will continue to follow. Please call with any questions. Job ID: [id number]
--- NOTE | 2018-11-21 05:45 | PDOC.FM ---
- Subjective Subjective: Pt communicated that he is doing well this morning. Denies abdominal pain or N/ V. Had 1 BM this morning. - Objective Vital Signs & Weight: Vital Signs (12 hours) Temp Pulse Resp BP Pulse Ox 11/20/18 20:00 98.8 F 61 16 116/64 93 L Weight Admit Weight 83.007 kg Weight 89.074 kg I&O: 11/19/18 11/20/18 11/21/18 06:59 06:59 06:59 Intake Total 1548 2420 Output Total 500 300 Balance 1548 -500 2120 Result Diagrams: 11/19/18 04:14 11/20/18 07:23 Phys Exam - Physical Examination Constitutional: NAD HEENT: PERRLA, moist MMs Neck: supple, full ROM Respiratory: no wheezing, no rales, no rhonchi Cardiovascular: RRR, no significant murmur, no rub Gastrointestinal: soft, non-tender, no distention Diminished bowel sounds Musculoskeletal: no edema, pulses present Aphasic with right sided weakness - chronic Deviation from normal: Expressing normally, smiles and laughs with gestured conversation Skin: no rash, cap refill <2 seconds Dx/Plan (1) Intractable vomiting with nausea Code(s): R11.2 - NAUSEA WITH VOMITING, UNSPECIFIED Status: Acute (2) Hyperbilirubinemia Code(s): E80.6 - OTHER DISORDERS OF BILIRUBIN METABOLISM Status: Acute (3) CHF (congestive heart failure) Code(s): I50.9 - HEART FAILURE, UNSPECIFIED Status: Chronic Qualifiers: Heart failure chronicity: chronic (4) History of CVA (cerebrovascular accident) Code(s): Z86.73 - PRSNL HX OF TIA (TIA), AND CEREB INFRC W/O RESID DEFICITS Status: Chronic (5) Diverticulosis Code(s): K57.90 - DVRTCLOS OF INTEST, PART UNSP, W/O PERF OR ABSCESS W/O BLEED Status: Chronic (6) Prostate CA Code(s): C61 - MALIGNANT NEOPLASM OF PROSTATE Status: Chronic - Plan Plan: Chronic diarrhea - Stool ova and parasite, Stool cultures for camp & E. coli, Fecal lactoferrin, C. diff, Fecal fat: pending, all but fecal fat uncollected - ESR: 21 and TSH: 0.77, so unlikely chronic inflammation or endocrine causes of diarrhea - CT abdomen and pelvis shows bowel wall thickening and pericolonic fat stranding around the sigmoid and rectum, as well as abd LAD significant for possible neoplastic process, discussed with pt - GI consulted - suggest repeating stool studies, if unable to produce stool or result with no signs of infectious etiology then EGD and colonoscopy for further evaluation. -BM this morning - sending stool sample off for analysis, remaining plan pending these results and GI recs Intractable vomiting with nausea and mild dehydration - Liquid diet & advance as tolerated - IVF w/ NS @ 120 -Tolerating PO without nausea and vomiting -Will change zofran to prn. Adding on Megace. Dysphagia - Hx of esophageal dilation - Speech therapy consult, still pending Hyperbilirubinemia - Tbili - 1.6 > 1.3 - Continue to trend CHF - Held torsemide due to being volume down Afib - Continue eliquis - Will hold if any need for procedural intervention Hx CVA w/ Aphasia - Continue home med: Eliquis Prostate Cancer Radiation in 2000 -May consider Oncology consult. -Checking a PSA -CT abd/pelvis shows possible signs of distal sigmoid/rectum neoplasm Line: Peripheral DVT Prophylaxis: Eliquis Condition: Stable Code Status: DNAR Diet: Clear Liquids IVF: NS @ 120 Dispo: Awaiting stool sample results and GI recs, pt's N/V/D is controlled at this point Addendum - Attending - Attending Attestation Date/Time: 11/21/182028 I personally evaluated the patient and discussed the management with Dr. Rolon at 1045 am. I agree with the History, Examination, Assessment and Plan documented above with any addition or exceptions noted below. Chronic n/v/d-stool studies negative this far. Appreciate GI recs history of prostate cancer- repeat psa drawn on 11/20
[2018-11-21] MEDS: Megestrol Acetate 40 MG TAB PO SCH ×4 (08:56→20:22)
[2018-11-21] MEDS: Escitalopram Oxalate 10 mg Tablet PO SCH (08:56)
[2018-11-21] MEDS: Divalproex Sodium 125 mg Sprinkle Capsule PO SCH ×2 (08:56→20:22)
[2018-11-21] MEDS: Carvedilol 6.25 MG TAB PO SCH ×2 (08:57→17:32)
[2018-11-21] MEDS: Sodium Chloride 0.9% 1,000 ML IV SCH ×2 (08:57→17:31)
[2018-11-21] MEDS: Apixaban 5 MG TAB PO SCH ×2 (08:57→20:22)
[2018-11-21] MEDS: rOPINIRole HCl 1 MG TAB PO SCH ×2 (08:58→20:22)
[2018-11-21] MEDS: Pantoprazole 40 MG VIAL IVP SCH ×2 (08:58→20:22)
--- NOTE | 2018-11-21 20:13 | PRG ---
DATE OF SERVICE: 11/21/2018 SUBJECTIVE: Mr. Bryan was admitted to the hospital for chronic diarrhea for 30 days probably 10 to 15 stools per day, had nausea and vomiting. Here, he is not vomiting, but he is not eating much. It seems that he just does not want to eat. He has had a modified swallow, which the Speech and Swallow does state it did not show aspiration. Here, he did not have a bowel movement for a couple of days, and today, he had 2 small ones. He has had semi-formed stools. No watery stool. PHYSICAL EXAMINATION: VITAL SIGNS: Temperature 98, pulse 70, blood pressure 124/65. ABDOMEN: Soft and nontender. No palpable hepatosplenomegaly. EXTREMITIES: No clubbing, cyanosis, or edema. I cannot feel any large nodes in the inguinal areas. LABORATORY AND DIAGNOSTIC DATA: White count 6.4, hemoglobin 12.7, platelet count 219. Chemistries; BUN and creatinine were 14 and 1.4 on admission, they are 12 and 1.11 now. Electrolytes are normal. TSH is normal. Lipase is normal. Stool studies; negative for C diff, negative for infection, positive for fecal lactoferrin. CAT scan on 11/19 showed enlarged external iliac lymph node in the left, 1.5 to 1.4 cm, enlarged aortocaval lymph nodes measuring up to 2.4 to 2.3 cm, sigmoid and rectal thickening, mild pericolonic fat stranding, and circumferential mucosal thickening. ASSESSMENT AND PLAN: 1. Nausea, vomiting, minimal diarrhea as reported on admission. 2. Mildly dehydrated on admission, improved. 3. Positive fecal leukocytes, negative C difficile. He does have a CAT scan, that shows significant disease in the rectosigmoid, which in the past has been attributed to malignancy of his prostate. This similar thickening has been seen on his CAT scan last year as well. He had enlarged lymph nodes on his last CAT scan then as well. The paraaortic lymph nodes are new. It is unclear as this was all felt related to his prostate cancer. I did not see any recent PSAs. RECOMMENDATIONS: 1. We will talk with Speech Pathology tomorrow regarding the utility of a formal modified barium swallow. He has required PEG tubes in the past. 2. We will talk with his oncologist and radiation doctors to see what their understanding of his disease process is at this time. 3. We will check PSA. 4. We will consider sigmoidoscopy if things do not improve, although he had a colonoscopy last year with similar findings on his CAT scan at that time. Job ID: [id number]
[2018-11-21] MEDS: traZODone HCl 50 MG TAB PO SCH (20:22)
[2018-11-21] MEDS: Atorvastatin Calcium 40 MG TAB PO SCH (20:22)
[2018-11-22] MEDS: Sodium Chloride 0.9% 1,000 ML IV SCH (00:20)
[2018-11-22 03:07] LABS: % Free PSA 13.5 % (.); Total PSA 62.1 ng/mL (0.0-4.0)
--- NOTE | 2018-11-22 05:59 | PDOC.FM ---
- Subjective Subjective: Pt's brother is in the room with him this am. He is resting comfortably. No events overnight. Drinking well without problems. - Objective Vital Signs & Weight: Vital Signs (12 hours) Temp Pulse Resp BP Pulse Ox 11/22/18 02:50 92 L 11/21/18 20:00 97.9 F 70 16 117/67 92 L Weight Admit Weight 83.007 kg Weight 91.036 kg I&O: 11/20/18 11/21/18 11/22/18 06:59 06:59 06:59 Intake Total 2420 2900 Output Total 500 300 375 Balance -500 2120 2525 Result Diagrams: 11/22/18 06:27 11/22/18 06:27 Phys Exam - Physical Examination Constitutional: NAD HEENT: PERRLA, moist MMs Neck: no JVD, full ROM Respiratory: no wheezing Some diffuse crackles posteriorly, likely dependent fluid Cardiovascular: RRR, no significant murmur Gastrointestinal: soft, non-tender, no distention, positive bowel sounds Musculoskeletal: pulses present, edema present (trace edema) Baseline aphasia and right sided weakness Psychiatric: normal affect Skin: no rash, cap refill <2 seconds Dx/Plan (1) Intractable vomiting with nausea Code(s): R11.2 - NAUSEA WITH VOMITING, UNSPECIFIED Status: Acute (2) Hyperbilirubinemia Code(s): E80.6 - OTHER DISORDERS OF BILIRUBIN METABOLISM Status: Acute (3) CHF (congestive heart failure) Code(s): I50.9 - HEART FAILURE, UNSPECIFIED Status: Chronic Qualifiers: Heart failure chronicity: chronic (4) History of CVA (cerebrovascular accident) Code(s): Z86.73 - PRSNL HX OF TIA (TIA), AND CEREB INFRC W/O RESID DEFICITS Status: Chronic (5) Diverticulosis Code(s): K57.90 - DVRTCLOS OF INTEST, PART UNSP, W/O PERF OR ABSCESS W/O BLEED Status: Chronic (6) Prostate CA Code(s): C61 - MALIGNANT NEOPLASM OF PROSTATE Status: Chronic (7) Hypokalemia Code(s): E87.6 - HYPOKALEMIA Status: Acute - Plan Plan: Chronic diarrhea - Stool studies were negative for any infectious etiologies - ESR: 21 and TSH: 0.77, so unlikely chronic inflammation or endocrine causes of diarrhea - CT abdomen and pelvis shows bowel wall thickening and pericolonic fat stranding around the sigmoid and rectum, as well as abd LAD significant for possible neoplastic process, discussed with pt - per GI, this change was noted on prior CT last year, newly found was periaortic lymph nodes - GI consulted - Will consider performing sigmoidoscopy. Coordinating with oncology - 2 BM yesterday, 1 this am, partially formed, non-watery/bloody Intractable vomiting with nausea and mild dehydration - Liquid diet & advance as tolerated - IVF stopped due to good PO fluid intake and mild rales on exam - Tolerating PO without nausea and vomiting - Will change zofran to prn. Adding on Megace as appetite stimulant Dysphagia - Hx of esophageal dilation - Speech therapy consult; consider modified barium swallow per GI Hyperbilirubinemia - resolved - Tbili - 1.6 > 1.3 > 1 CHF - Resumed home Torsemide Afib - Continue eliquis - Will hold if any need for procedural intervention Hx CVA w/ Aphasia - Continue home med: Eliquis Prostate Cancer Radiation in 2000 -May consider Oncology consult. -CT abd/pelvis shows possible signs of distal sigmoid/rectum neoplasm that were present on CT last year, newly found periaortic nodes -Total PSA 62.1, Free PSA 8.39 Hypokalemia -3.3 this am, replacing with 40meq KDUR Line: Peripheral DVT Prophylaxis: Eliquis Condition: Stable Code Status: DNAR Diet: Full liquid AAT IVF: None Dispo: Awaiting stool sample results and GI recs, pt's N/V/D is controlled at this point Addendum - Attending - Attending Attestation Date/Time: 11/22/182120 I personally evaluated the patient and discussed the management with Dr. Rolon at 1040 am, I agree with the History, Examination, Assessment and Plan documented above with any addition or exceptions noted below. Diarrhea improving and no recurrent vomiting. Patient requesting full diet this am. Discussion with GI and onc consult about further workup/plan
[2018-11-22 06:54] LABS: #Eosinphils 0.5 thou/uL (0.0-0.7); #Lymphocytes 0.8 thou/uL (1.20-3.40); #Neutrophils 8.8 thou/uL (1.40-6.50); %Basophils 0.3 % (0.0-1.0); %Eosinophils 4.3 % (0.0-10.0); %Lymphocytes 7.3 % (21.0-51.0); %Monocytes 8.6 % (0.0-10.0); %Neutrophils 79.6 % (42.0-75.0); Hemoglobin 12.9 g/dL (14.0-18.0); Mean Corpuscular HGB CONC 33.5 g/dL (32.0-36.0); Mean Corpuscular Hemoglobin 30.9 pg (27.0-31.0); Mean Corpuscular Volume 92.3 fL (78.0-98.0); Mean Platelet Volume 9.1 fL (7.4-10.4); Platelet Count 204 thou/uL (130-400); RBC Distribution Width 13.2 % (11.5-14.5); Red Blood Cell (RBC) Count 4.19 mill/uL (4.70-6.10)
[2018-11-22 07:15] LABS: ALT (SGPT) 20 U/L (8-55); AST (SGOT) 21 U/L (5-34); Albumin 3.2 g/dL (3.4-4.8); Alkaline Phosphatase 81 U/L (40-150); Anion Gap 9 mmol/L (10-20); BUN (Urea Nitrogen) 12 mg/dL (8.4-25.7); Bilirubin, Total 1.1 mg/dL (0.2-1.2); Calc. Creatinine Clearance 81 mL/min (70-130); Calcium 8.8 mg/dL (7.8-10.44); Carbon Dioxide 24 mmol/L (23-31); Chloride 107 mmol/L (98-107); Estimated GFR-MDRD 65; Globulin 2.9 g/dL (2.4-3.5); Glucose 85 mg/dL (80-115); Potassium 3.3 mmol/L (3.5-5.1); Protein, Total 6.1 g/dL (5.8-8.1); Sodium 137 mmol/L (136-145)
[2018-11-22] MEDS ORDERED: Potassium Chloride 20 MEQ TAB PO SCH (08:15)
[2018-11-22] MEDS: Pantoprazole 40 MG VIAL IVP SCH ×2 (08:46→21:00)
[2018-11-22] MEDS: Carvedilol 6.25 MG TAB PO SCH ×2 (08:47→19:36)
[2018-11-22] MEDS: Escitalopram Oxalate 10 mg Tablet PO SCH (08:47)
[2018-11-22] MEDS: Megestrol Acetate 40 MG TAB PO SCH ×4 (08:47→21:00)
[2018-11-22] MEDS: rOPINIRole HCl 1 MG TAB PO SCH ×2 (08:47→21:00)
[2018-11-22] MEDS: Divalproex Sodium 125 mg Sprinkle Capsule PO SCH ×2 (08:48→21:00)
[2018-11-22] MEDS: Apixaban 5 MG TAB PO SCH ×2 (08:48→21:00)
[2018-11-22] MEDS: Torsemide 20 MG TAB PO SCH (09:20)
[2018-11-22 17:09] LABS: Neutral Fats And/Or Soaps Normal (.)
[2018-11-22] MEDS: Atorvastatin Calcium 40 MG TAB PO SCH (21:00)
[2018-11-22] MEDS: traZODone HCl 50 MG TAB PO SCH (21:00)
--- NOTE | 2018-11-22 22:23 | PRG ---
DATE OF SERVICE: SUBJECTIVE: Mr. Bryan is still not eating well. He still has some nausea. In talking with his nurse, he swallows his pills fine, but really he is just not eating much. In talking with him through the white board, he seems to have more of a sense like he is kind of throw up. As far as his diarrhea, he has some loose stools, but just 1 or 2 a day. He had a semiformed stool earlier. MEDICATIONS: Remains on; 1. Eliquis. 2. Protonix. 3. Depakote. OBJECTIVE: VITAL SIGNS: Temperature is 98.7, pulse 68, blood pressure 117/66, respiratory rate 16. HEENT: Oropharynx shows no overt lesions. LUNGS: Clear. ABDOMEN: Soft, nontender. LABORATORY DATA: White count is 11.0 from 6.4, hemoglobin is 12, platelet count is 204. Comprehensive metabolic profile normal. PSA was 64.97. ASSESSMENT: 1. Dysphagia versus nausea and vomiting. It is really difficult to get his complete symptoms as he is aphasic from prior stroke. He had responded to an EGD last year with dilatation, otherwise there is not much of a stricture. I have talked with Speech Pathology, they were concerned about a stricture in the upper throat based on the symptoms, but I do not think he has a significant stricture there. We will proceed with EGD tomorrow to rule out Nancy, which he has had in the past and to see about dilating because he did have a mild midesophageal narrowing that we dilated last time, but this was no way obstructing and really should not interfere with intake of liquids, which he is having difficulty with. I think that probably most likely this is related to residual effect from his prior strokes. 2. With regard to the diarrhea, that is much better. He still having stool loose to semiformed a couple of times a day, but nowhere near the 10 to 15 times a day he was having for the past month. His colonoscopy revealed a stricture going to the sigmoid colon which was also seen last year on endoscopy, this was felt to be diverticular, but after conversing with his oncologist last year, they thought it was probably related to metastatic disease from his prostate cancer as he had a mass-like area in the colon and some multiple lymph nodes in retroperitoneum. In talking with him also, he had elevated PSA at that time, they gave him 1 shot of Lupron, it came back down to normal, but he refused to continue therapy. In talking with the patient today, he says that he is not treating the prostate cancer anymore and really does not seem to even want to talk about the elevated PSA at this point in time. PLAN: Tomorrow, we will proceed with EGD and flexible sigmoidoscopy. I do not think he can take a bowel prep because of poor p.o. intake. We will give him a Fleet enema and see if we can get him drink a little magnesium citrate. We will also hold his anticoagulation in light of possible dilatation and now it is scheduled for 2:30 tomorrow, I have informed the patient of that today. Job ID: [id number]
--- NOTE | 2018-11-23 01:22 | CON ---
DATE OF CONSULTATION: REASON FOR CONSULT: Prostate cancer. HISTORY OF PRESENT ILLNESS: Mr. Bryan is a 68-year-old gentleman with a prior history of embolic CVA in 2012 and prostate cancer. He presented to the emergency room for nausea, vomiting, and diarrhea. He has been seen by GI and has improved over the last several days. He was diagnosed with adenocarcinoma of the prostate in 2012. He completed EBRT and two years of Lupron. He was placed on Zytiga with Lupron in October 2017. He was last seen by Dr. Acuna in December of 2017, when his PSA was 0.80. At that time, the patient wanted to discontinue the medication. He apparently has not taken anything for his prostate cancer since that time. A PSA drawn on this admission was elevated at 64.97. The patient has communication difficulty. He is unable to understand verbal communication. He is able to communicate with writing. I used an Sh[employer] board to communicate with the patient. His caregiver was present at bedside as well as his via telephone. PAST MEDICAL HISTORY: 1. Prostate cancer. 2. CVA. 3. CHF. 4. Atrial fibrillation. 5. Diverticulitis. 6. Sleep apnea. PAST SURGICAL HISTORY: 1. Pacemaker placement. 2. Bowel resection. 3. Esophageal dilation. 4. Ankle surgery. ALLERGIES: TO IODINE. HOME MEDICATIONS: 1. Eliquis 5 mg b.i.d. 2. 40 mg daily. 3. Coreg 6.25 mg b.i.d. 4. Depakote 125 mg b.i.d. 5. Citalopram 10 mg daily. 6. Prilosec 10 mg daily. 7. Ropinirole 1 mg b.i.d. 8. Furosemide 20 mg daily. 9. Trazodone 50 mg daily. FAMILY HISTORY: Noncontributory. SOCIAL HISTORY: He is , has 1 child. He lives in independent living at [facility] with a caregiver and guardian. REVIEW OF SYSTEMS: The patient denies any pain. Otherwise, unable to obtain. PHYSICAL EXAMINATION: VITAL SIGNS: Temperature is 97.7, pulse is 69, respiratory rate 16, BP is 129/ 70, and he is 95% on room air. GENERAL: This is a chronically ill-appearing male, in no acute distress. HEENT: Normocephalic, atraumatic. Pupils are equal and reactive to light. NECK: Supple. CV: Regular rate and rhythm. LUNGS: Clear. ABDOMEN: Soft. Bowel sounds are active. EXTREMITIES: No clubbing or cyanosis. SKIN: No rash. HEMATOLOGICAL: No petechiae or purpura. NEUROLOGICAL: He has significant expressive aphasia with right hemiparesis and is in a wheelchair. PERTINENT LABS AND X-RAYS: Current WBCs are 11, hemoglobin 12.9, hematocrit 38.6, platelet count 204,000, he has 80% neutrophils, 8% lymphocytes. Sodium is 137, potassium 3.3, chloride 107, CO2 is 24, BUN is 12, creatinine 1.12, calcium 8.8, bilirubin 1.1, AST is 21, ALT is 20, and alkaline phosphatase is 81. Serum total protein is 6.1, albumin 3.2, and globulin 2.9. PSA is 65. Abdominal and pelvis CT shows bowel wall thickening with pericolonic fat stranding in the distal sigmoid colon and rectum. ASSESSMENT: 1. Recurrent prostate cancer. 2. History of cerebrovascular accident with expressive aphasia and right hemiparesis. DISCUSSION: Discussed with the patient that his prostate cancer has returned. Recommendation for treatment includes Lupron and possibly Zytiga or Xtandi. The patient is adamantly refusing any type of treatment, in fact, threw the writing board across the room when I suggested treatment. He understands that his disease will continue to progress and it could cause some significant pain and will likely be terminal. He still refuses treatment. We will discuss this further once his son arrives. Case has been discussed with Dr. Acuna. Thank you for the consult. Job ID: [id number] [facility]
--- NOTE | 2018-11-23 05:38 | PDOC.FM ---
- Subjective Subjective: Pt continues to do well. Is having partially formed bowel movements, 1-2 per day. He denied any nausea or vomiting to me although apparently has reported some nausea to GI. He denied any complaints this morning. - Objective Vital Signs & Weight: Vital Signs (12 hours) Temp Pulse Resp BP BP Pulse Ox 11/22/18 20:00 98.7 F 69 16 117/66 94 L 11/22/18 19:36 122/70 Weight Admit Weight 83.007 kg Weight 87.77 kg I&O: 11/21/18 11/22/18 11/23/18 06:59 06:59 06:59 Intake Total 2420 2900 1210 Output Total 300 375 440 Balance 2120 2525 770 Result Diagrams: 11/23/18 06:29 11/23/18 06:29 Phys Exam - Physical Examination Constitutional: NAD HEENT: PERRLA, moist MMs Neck: no JVD, full ROM Respiratory: no wheezing, no rhonchi few scattered rales, improved since yesterday Cardiovascular: RRR, no significant murmur Gastrointestinal: soft, non-tender, no distention, positive bowel sounds Musculoskeletal: no edema, pulses present Neurological: moves all 4 limbs Aphasic, right sided weakness Psychiatric: normal affect Deviation from normal: unable to further assess Skin: no rash, cap refill <2 seconds Dx/Plan (1) Intractable vomiting with nausea Code(s): R11.2 - NAUSEA WITH VOMITING, UNSPECIFIED Status: Acute (2) Hyperbilirubinemia Code(s): E80.6 - OTHER DISORDERS OF BILIRUBIN METABOLISM Status: Acute (3) CHF (congestive heart failure) Code(s): I50.9 - HEART FAILURE, UNSPECIFIED Status: Chronic Qualifiers: Heart failure chronicity: chronic (4) History of CVA (cerebrovascular accident) Code(s): Z86.73 - PRSNL HX OF TIA (TIA), AND CEREB INFRC W/O RESID DEFICITS Status: Chronic (5) Diverticulosis Code(s): K57.90 - DVRTCLOS OF INTEST, PART UNSP, W/O PERF OR ABSCESS W/O BLEED Status: Chronic (6) Prostate CA Code(s): C61 - MALIGNANT NEOPLASM OF PROSTATE Status: Chronic (7) Hypokalemia Code(s): E87.6 - HYPOKALEMIA Status: Acute - Plan Plan: Chronic diarrhea - Repeat stool studies were negative for any infectious etiologies - ESR: 21 and TSH: 0.77, so unlikely chronic inflammation or endocrine causes of diarrhea - CT abdomen and pelvis shows bowel wall thickening and pericolonic fat stranding around the sigmoid and rectum, as well as abd LAD significant for possible neoplastic process, discussed with pt - per GI, this change was noted on prior CT last year, newly found was periaortic lymph nodes - Having partially formed stools - GI consulted - flex sig and EGD with possible dilation today Intractable vomiting with nausea and mild dehydration - Currently NPO for procedures today - IVF stopped due to good PO fluid intake and mild rales on exam - Was tolerating PO without vomiting since admission - Zofran prn - Megace for appetite stimulation Dysphagia - Hx of esophageal dilation - Speech therapy consult - GI: EGD today to assess for stricture or jason Hyperbilirubinemia - resolved - Tbili - 1.6 > 1.3 > 1 CHF - Resumed home Torsemide yesterday Afib - Holding eliquis for procedure Hx CVA w/ Aphasia - Eliquis held for flex sig and EGD with poss dilation Prostate Cancer Radiation in 2000 - CT abd/pelvis shows possible signs of distal sigmoid/rectum neoplasm that were present on CT last year, newly found periaortic nodes - Total PSA 62.1, Free PSA 8.39 - Oncololgy consulted: spoke with pt about treatment of his recurrent prostate CA, he adamantly refused and does not wish to proceed with any treatment Hypokalemia -3.3 this am, replacing with 40meq KDUR Line: Peripheral DVT Prophylaxis: Eliquis Condition: Stable Code Status: DNAR Diet: Full liquid AAT IVF: None Dispo: Stool studies were negative, GI: EGD and flex sig today. Addendum - Attending - Attending Attestation Date/Time: 11/23/18 3302 I personally evaluated the patient and discussed the management with Dr. Rolon. I agree with the History, Examination, Assessment and Plan documented above with any addition or exceptions noted below. Persistent n/v/diarrhea- improved since admission. GI to perform EGD and flex sig today to evaluate for esophageal stricture and sigmoid anomalies seen on CT scan Recurrent prostate ca- patient declines treatment at this time. Hypokalemia- replace. Appreciate GI recs.
[2018-11-23 06:59] LABS: #Eosinphils 0.4 thou/uL (0.0-0.7); #Lymphocytes 0.7 thou/uL (1.20-3.40); #Monocytes 0.7 thou/uL (0.11-0.59); #Neutrophils 7.1 thou/uL (1.40-6.50); %Basophils 0.3 % (0.0-1.0); %Eosinophils 4.7 % (0.0-10.0); %Lymphocytes 8.2 % (21.0-51.0); %Monocytes 7.4 % (0.0-10.0); %Neutrophils 79.4 % (42.0-75.0); Hemoglobin 12.8 g/dL (14.0-18.0); Mean Corpuscular HGB CONC 33.6 g/dL (32.0-36.0); Mean Corpuscular Hemoglobin 30.5 pg (27.0-31.0); Mean Corpuscular Volume 90.9 fL (78.0-98.0); Mean Platelet Volume 8.9 fL (7.4-10.4); Platelet Count 216 thou/uL (130-400); RBC Distribution Width 13.1 % (11.5-14.5); Red Blood Cell (RBC) Count 4.18 mill/uL (4.70-6.10)
[2018-11-23] MEDS ORDERED: Magnesium Citrate 300 ML BOT PO SCH (07:00)
[2018-11-23 07:23] LABS: ALT (SGPT) 17 U/L (8-55); AST (SGOT) 19 U/L (5-34); Albumin 3.4 g/dL (3.4-4.8); Alkaline Phosphatase 89 U/L (40-150); Anion Gap 12 mmol/L (10-20); BUN (Urea Nitrogen) 10 mg/dL (8.4-25.7); Bilirubin, Total 1.5 mg/dL (0.2-1.2); Calc. Creatinine Clearance 84 mL/min (70-130); Calcium 9.1 mg/dL (7.8-10.44); Carbon Dioxide 24 mmol/L (23-31); Chloride 102 mmol/L (98-107); Estimated GFR-MDRD 70; Globulin 3.1 g/dL (2.4-3.5); Glucose 78 mg/dL (80-115); Potassium 3.3 mmol/L (3.5-5.1); Protein, Total 6.5 g/dL (5.8-8.1); Sodium 135 mmol/L (136-145)
[2018-11-23] MEDS: Megestrol Acetate 40 MG TAB PO SCH ×4 (09:01→20:18)
[2018-11-23] MEDS: Carvedilol 6.25 MG TAB PO SCH ×2 (09:01→17:55)
[2018-11-23] MEDS: Escitalopram Oxalate 10 mg Tablet PO SCH (09:01)
[2018-11-23] MEDS: Divalproex Sodium 125 mg Sprinkle Capsule PO SCH ×2 (09:01→20:22)
[2018-11-23] MEDS: Pantoprazole 40 MG VIAL IVP SCH ×2 (09:02→20:21)
[2018-11-23] MEDS: rOPINIRole HCl 1 MG TAB PO SCH ×2 (09:02→20:18)
[2018-11-23] MEDS: Torsemide 20 MG TAB PO SCH (09:02)
[2018-11-23] MEDS ORDERED: Potassium Chloride 20 MEQ TAB PO SCH ×2 (09:15→16:00)
--- NOTE | 2018-11-23 09:56 | PDOC.MOPN ---
Interval History: Patient in bed, multiple BM's today. Son and ex- at bedside. - Vital Signs Vital Signs: Vital Signs (12 hours) Temp Pulse Resp BP BP Pulse Ox 11/23/18 09:01 122/70 11/23/18 07:42 98.3 F 70 18 133/71 95 Weight Admit Weight 183 lb Weight 193 lb 8 oz - Physical Exam General: Alert HEENT: PERRLA Lungs: Clear to auscultation Cardiovascular: Regular rate Abdomen: Normal bowel sounds Extremities: No edema Neurological: Other (aphasia) - Labs Result Diagrams: 11/23/18 06:29 11/23/18 06:29 Lab results: Laboratory Results - last 24 hr 11/23/18 06:29: WBC 9.0, RBC 4.18 L, Hgb 12.8 L, Hct 38.0 L, MCV 90.9, MCH 30.5 , MCHC 33.6, RDW 13.1, Plt Count 216, MPV 8.9, Neutrophils % 79.4 H, Lymphocytes % 8.2 L, Monocytes % 7.4, Eosinophils % 4.7, Basophils % 0.3, Neutrophils # 7.1 H, Lymphocytes # 0.7 L, Monocytes # 0.7 H, Eosinophils # 0.4, Basophils # 0.0 11/23/18 06:29: Sodium 135 L, Potassium 3.3 L, Chloride 102, Carbon Dioxide 24, Anion Gap 12, BUN 10, Creatinine 1.05, Estimated GFR (MDRD) 70, Glucose 78 L, Calcium 9.1, Total Bilirubin 1.5 H, AST 19, ALT 17, Alkaline Phosphatase 89, Serum Total Protein 6.5, Albumin 3.4, Globulin 3.1, Albumin/Globulin Ratio 1.1 L 11/18/18 14:45: Stool Fat, Qual Normal, Stl Fatty Acid & Soaps Normal Status: lab reviewed by me A/P - Problem (1) Prostate CA Current Visit: Yes Code(s): C61 - MALIGNANT NEOPLASM OF PROSTATE Status: Chronic - Plan Plan: Long conversation with patient and family regarding treatment options including Lupron and Zytiga or Xtandi. Communication through white board. Patient continues to decline treatment. Unclear if he can reason appropriately. Family will continue to discuss further with patient. Will be available if needed. Signing off.
[2018-11-23] MEDS ORDERED: Fleet Enema 133 ML BOT PR SCH (11:00)
[2018-11-23] MEDS ORDERED: Ketamine 50 MG/ML (10ML VIAL) ONE (13:14)
[2018-11-23 13:26] VITALS: BMI 24.8
[2018-11-23] MEDS ORDERED: PROPOFOL 200 MG/20 ML VIAL ONE (13:53)
[2018-11-23] MEDS ORDERED: ePHEDrine 50 MG/ML VIAL ONE (13:53)
[2018-11-23] MEDS: traZODone HCl 50 MG TAB PO SCH (20:17)
[2018-11-23] MEDS: Acetaminophen 325 MG TAB PO PRN (20:17)
[2018-11-23] MEDS: Atorvastatin Calcium 40 MG TAB PO SCH (20:23)
--- NOTE | 2018-11-24 05:27 | PDOC.FM ---
- Subjective Subjective: Pt had no events overnight. He denies any nausea, vomiting, diarrhea, or abdominal pain. Expressed understanding and excitement that he is to have a barium swallow test today to assess for his coughing with liquids. - Objective Vital Signs & Weight: Vital Signs (12 hours) Temp Pulse Resp BP BP Pulse Ox 11/23/18 20:00 99.0 F 70 16 124/69 95 11/23/18 17:55 153/94 H Weight Admit Weight 83.007 kg Weight 87.77 kg I&O: 11/22/18 11/23/18 11/24/18 06:59 06:59 06:59 Intake Total 2900 1210 390 Output Total 375 440 7 Balance 2525 770 383 Result Diagrams: 11/23/18 06:29 11/23/18 06:29 Phys Exam - Physical Examination Constitutional: NAD HEENT: PERRLA, moist MMs Neck: no JVD, full ROM Respiratory: no wheezing, no rhonchi Diffuse crackles, worse posteriorly and inferiorly Cardiovascular: RRR, no significant murmur, no rub Gastrointestinal: soft, non-tender, no distention, positive bowel sounds Musculoskeletal: no edema, pulses present Chronic expressive aphasia and right sided weakness Psychiatric: normal affect Deviation from normal: Unable to assess fully Skin: no rash, cap refill <2 seconds Dx/Plan (1) Prostate CA Code(s): C61 - MALIGNANT NEOPLASM OF PROSTATE Status: Chronic (2) Colonic obstruction Code(s): K56.609 - UNSP INTESTNL OBST, UNSP TO PARTIAL VERSUS COMPLETE OBST Status: Acute (3) Intractable vomiting with nausea Code(s): R11.2 - NAUSEA WITH VOMITING, UNSPECIFIED Status: Resolved (4) Hyperbilirubinemia Code(s): E80.6 - OTHER DISORDERS OF BILIRUBIN METABOLISM Status: Acute (5) CHF (congestive heart failure) Code(s): I50.9 - HEART FAILURE, UNSPECIFIED Status: Chronic Qualifiers: Heart failure chronicity: chronic (6) History of CVA (cerebrovascular accident) Code(s): Z86.73 - PRSNL HX OF TIA (TIA), AND CEREB INFRC W/O RESID DEFICITS Status: Chronic (7) Diverticulosis Code(s): K57.90 - DVRTCLOS OF INTEST, PART UNSP, W/O PERF OR ABSCESS W/O BLEED Status: Chronic (8) Hypokalemia Code(s): E87.6 - HYPOKALEMIA Status: Acute - Plan Plan: Prostate Cancer Radiation in 2000 - CT abd/pelvis shows possible signs of distal sigmoid/rectum neoplasm that were present on CT last year, newly found periaortic nodes - Total PSA 62.1, Free PSA 8.39 - Oncololgy consulted: spoke with pt about treatment of his recurrent prostate CA, he adamantly refused and does not wish to proceed with any treatment - "Abnormalities" found on flex sig per nursing note, Surg consulted for "sigmoid obstruction" - Surgery: Dr. Bravo made pt NPO at midnight last night for possible operation today, per nursing staff has not yet seen pt Dysphagia - Hx of esophageal dilation - Speech therapy consult - GI: EGD normal - Barium swallow study ordered Chronic diarrhea - resolved - Repeat stool studies were negative for any infectious etiologies - ESR: 21 and TSH: 0.77, so unlikely chronic inflammation or endocrine causes of diarrhea - CT abdomen and pelvis shows bowel wall thickening and pericolonic fat stranding around the sigmoid and rectum, as well as abd LAD significant for possible neoplastic process, discussed with pt - per GI, this change was noted on prior CT last year, newly found was periaortic lymph nodes - Having partially formed stools - GI consulted - flex sig and EGD yesterday; no procedural notes available yet, from nurses notes apparently EGD was normal and flex sig showed a sigmoid obstruction, surgery was consulted Intractable vomiting with nausea and mild dehydration - resolved - Currently NPO for procedures today - IVF stopped due to good PO fluid intake and mild rales on exam - Was tolerating PO without vomiting since admission - Zofran prn - Megace for appetite stimulation Hyperbilirubinemia - resolved - Tbili - 1.6 > 1.3 > 1 CHF - Resumed home Torsemide yesterday Afib - Holding eliquis for procedure Hx CVA w/ Aphasia - Eliquis held for flex sig and EGD with poss dilation Hypokalemia -mild, replacing as needed Line: Peripheral DVT Prophylaxis: Eliquis held 11/23 Condition: Stable Code Status: DNAR Diet: Full liquid AAT IVF: None Dispo: Stool studies were negative; GI: EGD and flex sig yesterday, operative report pending; surgery consulted, possible operation today Addendum - Attending - Attending Attestation Date/Time: 11/24/182028 I personally evaluated the patient and discussed the management with Dr. Rolon. I agree with the History, Examination, Assessment and Plan documented above with any addition or exceptions noted below. Recurrent prostate cancer with extrinsic pressure on sigmoid colon- patient to have diverting colostomy today. is not interested in chemotherapy or further treatment of his prostate cancer.
[2018-11-24] MEDS: Carvedilol 6.25 MG TAB PO SCH ×2 (09:01→18:17)
[2018-11-24] MEDS: Escitalopram Oxalate 10 mg Tablet PO SCH (09:02)
[2018-11-24] MEDS: Divalproex Sodium 125 mg Sprinkle Capsule PO SCH ×2 (09:02→22:22)
[2018-11-24] MEDS: Megestrol Acetate 40 MG TAB PO SCH ×3 (09:02→22:21)
[2018-11-24] MEDS: Torsemide 20 MG TAB PO SCH (09:03)
[2018-11-24] MEDS: Pantoprazole 40 MG VIAL IVP SCH ×2 (09:03→22:14)
[2018-11-24] MEDS: rOPINIRole HCl 1 MG TAB PO SCH ×2 (09:03→22:13)
--- NOTE | 2018-11-24 09:44 | OP ---
DATE OF PROCEDURE: 11/23/2018 PROCEDURES PERFORMED: Esophagogastroduodenoscopy and dilatation, with flexible sigmoidoscopy. PREPROCEDURE DIAGNOSES: 1. Oropharyngeal dysphagia. 2. Previous similar symptoms in the past, last year with some response to empiric dilatation of esophageal stricture. He also had Nancy at that time. POSTPROCEDURE DIAGNOSES: 1. No evidence of oropharyngeal or esophageal candidiasis. 2. No evidence of esophageal strictures. 3. Empiric dilatation with 54-Swedish dilator performed with second-look showing no effect. 4. Otherwise normal esophagogastroduodenoscopy with normal stomach and duodenum. 5. Flexible sigmoidoscopy showed extrinsic compression of sigmoid colon at about 15 cm consistent with the appearance of his CAT scan. Differential diagnosis would include chronic diverticular disease versus metastatic prostate cancer as it seems he has enlarged nodes in this region of the retroperitoneum, which Oncology tells me it was seen previously and it is related to his metastatic prostate cancer. RECOMMENDATIONS: 1. Modified barium swallow. 2. Consult Oncology with regard to trial of retreatment for his prostate cancer to see if this opens up his colon and consult General Surgery for diverting colostomy if he does not want to proceed with any treatment of his prostate cancer. ANESTHESIA: TIVA. PROCEDURE IN DETAIL: The patient was informed of the risk, benefits, possible complications of endoscopy including perforation, reaction to medication, and aspiration, and informed consent was obtained. The patient was brought to the endoscopy suite, where he was sedated in standard fashion. Once, he was comfortable, a bite block was placed inside the orifice. The endoscope was advanced to the esophagus, stomach, and second and third portions of the duodenum. The oropharynx was normal with no evidence of thrush or candidiasis. The esophagus was entered easily and the scope was advanced easily to the stomach and duodenum, the second and third portions, all which appeared normal. The stomach was normal in forward and retroflexed views. There was no evidence of esophageal lesions at the GE junction in forward or retroflexed views. There was no evidence of strictures. There was no evidence of candidiasis. Empiric dilatation was performed with 54-Swedish Gallagher dilator and then the scope was reinserted, second look showed no change in the esophageal mucosa. The scope was removed. The patient was turned to the room and rectal examination was performed. The endoscope was advanced into the anal canal. There was some formed stool in the rectum, but at about 15 to 20 cm from the anorectal verge, a tight narrowing was noted in the sigmoid colon with some edema of the submucosa and inability to pass this area with the upper endoscope. This is extrinsic compression as it was noted on the CAT scan. The scope was removed. The patient tolerated the procedure well with no complications. Job ID: [id number]
--- NOTE | 2018-11-24 09:55 | PDOC.MOPN ---
Interval History: Patient in wheelchair, sitter at bedside. - Vital Signs Vital Signs: Vital Signs (12 hours) Temp Pulse Resp BP BP Pulse Ox 11/24/18 09:01 124/79 11/24/18 07:41 97.7 F 70 16 124/79 98 Weight Admit Weight 183 lb Weight 193 lb 8 oz - Physical Exam General: Alert HEENT: PERRLA Lungs: Clear to auscultation Cardiovascular: Regular rate Abdomen: Other Extremities: No edema Skin: No rashes Neurological: Other - Labs Result Diagrams: 11/23/18 06:29 11/23/18 06:29 Status: lab reviewed by me A/P - Problem (1) Prostate CA Current Visit: Yes Code(s): C61 - MALIGNANT NEOPLASM OF PROSTATE Status: Chronic (2) Colonic obstruction Current Visit: Yes Code(s): K56.609 - UNSP INTESTNL OBST, UNSP TO PARTIAL VERSUS COMPLETE OBST Status: Acute - Plan Plan: Using pad and paper, informed patient of obstruction and likelihood from prostate cancer. Recommended he begin chemo. He pushed notepad away from me but then accepted it and read it. He scratched out the word chemo. Similar to yesterdays conversation, it appears he adamantly declines chemotherapy despite discussing risks of no treatment including pain and . Await surgical consultation.
[2018-11-24] MEDS ORDERED: cefOXitin 2 GM in Sodium Chloride 0.9% 100 ML IVPB SCH (11:45)
--- NOTE | 2018-11-24 14:06 | HP ---
CHIEF COMPLAINT: Sigmoid stricture. HISTORY OF PRESENT ILLNESS: Mr. Bryan is a 68-year-old man with metastatic prostate cancer, who has refused treatment for this. He was admitted from the GI clinic with a 1-month history of nausea, vomiting, and diarrhea. He has a known sigmoid stricture, which has been present for about a year. Oncology believes this is malignant in nature related to external compression by his metastatic prostate cancer and retroperitoneal lymph nodes. He underwent EGD and sigmoidoscopy yesterday by Dr. Jean-Baptiste of Gastroenterology. He found no significant findings in the esophagus or stomach and a tight extrinsic appearing stricture in the sigmoid colon around 15 cm, which could not be traversed with the endoscope. The patient is aphasic to the spoken word, but is able to communicate through writing, due to a past stroke. Stool studies have been negative. PAST MEDICAL HISTORY: Prostate cancer, atrial fibrillation, nonobstructive cardiomyopathy, stroke, CHF, obstructive sleep apnea, and diverticulitis. PAST SURGICAL HISTORY: Ankle surgery and esophageal dilation. The chart states that he had a colostomy, which was later reversed, but the patient and family deny this. FAMILY HISTORY: Noncontributory. SOCIAL HISTORY: Noncontributory. REVIEW OF SYSTEMS: Limited by the patient's aphasia, but he denies any problems other than those stated in the HPI. He does not have any significant abdominal pain. PHYSICAL EXAMINATION: VITAL SIGNS: The patient has been afebrile during this hospital stay. Heart rate 70, blood pressure 124/79, 98% saturated on room air. HEENT: Unremarkable except for some facial asymmetry. NECK: Supple without lymphadenopathy or thyroid nodules. HEART: Regular in its rate and rhythm. He has a soft systolic murmur. LUNGS: Clear to auscultation bilaterally. ABDOMEN: Soft, nontender, and nondistended. He has hyperactive bowel sounds. No palpable masses or hernias. No visible surgical scars. EXTREMITIES: Warm and well perfused without edema. NEURO: No focal deficits. PSYCHIATRIC: Alert and asking appropriate questions by writing, but with aphasia to the spoken word. CURRENT MEDICATIONS: 1. Lipitor. 2. Coreg. 3. Depakote. 4. Lexapro. 5. Megace. 6. Nystatin and triamcinolone cream. 7. Protonix. 8. Ropinirole. 9. Demadex. 10. Desyrel. 11. Zinc oxide. 12. Multiple other p.r.n.'s. He was on Eliquis, but this has been held for several days ALLERGIES: HE HAS AN ALLERGY TO IODINE CONTAINING PRODUCTS. LABORATORY DATA: White count is normal at 9 and hematocrit is 38, platelet is 216. Potassium is slightly low at 3.3, but other electrolytes are okay. Total bilirubin is slightly elevated at 1.5, but other LFTs are unremarkable IMAGING: CT of the abdomen and pelvis showed bowel wall thickening with pericolonic fat stranding in the distal sigmoid colon and rectum with adjacent lymphadenopathy suspicious for a neoplastic process. ASSESSMENT: Sigmoid stricture present for a year, but more symptomatic now, likely related to his metastatic prostate cancer. I did have a written conversation with the patient regarding his diagnosis and recommended treatment. His options include chemotherapy to treat the underlying cause, which is prostate cancer. However, the patient has refused this option. Other options include a diverting colostomy or hospice care. The patient has elected to proceed with surgery. He understands the inherent risks of surgery which include, but are not limited to, bleeding, infection, risks of anesthesia, damage to nearby structure including bowel and blood vessels, and ureter, and need for open surgery. All of his questions were answered. Antibiotics have been ordered on-call to the OR, and he has been posted for surgery later today. Job ID: [id number] [facility]
[2018-11-24] MEDS ORDERED: Ondansetron PF 4 MG/2 ML Vial ONE (15:31)
[2018-11-24] MEDS ORDERED: ePHEDrine 50 MG/ML VIAL ONE (15:31)
[2018-11-24] MEDS ORDERED: Dexamethasone 20 MG/5 ML VIAL ONE (15:31)
[2018-11-24] MEDS ORDERED: Rocuronium Bromide 10 MG/ML (10ML VIAL) ONE (15:31)
[2018-11-24] MEDS ORDERED: Lidocaine 1% PF 5 ML VIAL ONE (15:31)
[2018-11-24] MEDS ORDERED: PHENYLEPHRINE-NS 100 MCG/ML 10 ML SYRINGE ONE (15:31)
[2018-11-24] MEDS ORDERED: PROPOFOL 200 MG/20 ML VIAL ONE (15:31)
[2018-11-24] MEDS ORDERED: Bupivacaine HCl 0.5%/Epinephrine 1:200,000/PF 30 ml Vial ONE (16:02)
[2018-11-24] MEDS ORDERED: cefOXitin 2 GM VIAL ONE (16:22)
[2018-11-24] MEDS ORDERED: Sodium Chloride 0.9% 100 ML ONE (16:22)
[2018-11-24] MEDS ORDERED: Fentanyl 250 MCG/5 ML VIAL ONE (17:25)
--- NOTE | 2018-11-24 18:52 | PRG ---
DATE OF SERVICE: 11/24/2018 Mr. Bryan is going to the OR today. He has decided to have a colostomy for a high-grade obstruction of his sigmoid colon. Much like on my conversation with him yesterday, he did not want to talk about chemotherapy or treatment for prostate cancer with Oncology as Che documented in their note. Likewise, when I discussed with him he scratched out prostate cancer and chemotherapy and said no. We have talked with Dr. Bravo, talked with him and the family last night. I talked with the son last night, who confirmed the patient was adamantly not going to have any chemotherapy for the prostate cancer, decision he made, although no one really understood why, but he understands the possibility of becoming obstructed and he is going to go for the diverting colostomy today. Additionally, the modified barium swallow has been held off. This can be planned for the next day or two. I have discussed the case with Oncology and this evening, I talked with Dr. Bravo before they have gone to the operating room. Job ID: [id number]
[2018-11-24] MEDS ORDERED: Ondansetron HCl/PF 4 MG/2 ML Vial IVP PRN (20:23)
[2018-11-24] MEDS ORDERED: Promethazine HCl 25 MG/ML VIAL SLOW IVP PRN (20:23)
[2018-11-24] MEDS ORDERED: Promethazine HCl 25 MG/ML VIAL IM PRN (20:23)
[2018-11-24] MEDS ORDERED: Fentanyl 100 MCG/2 ML VIAL ONE (20:35)
[2018-11-24] MEDS ORDERED: Morphine 2 MG/ML SYRINGE SLOW IVP PRN (20:53)
[2018-11-24] MEDS ORDERED: Acetaminophen 1,000 MG in Premix Bag 1 BAG IVPB PRN (20:53)
[2018-11-24] MEDS ORDERED: Morphine 4 MG/ML VIAL SLOW IVP PRN (20:53)
[2018-11-24] MEDS ORDERED: HYDROcodone/Acetaminophen 5/325 mg Tablet PO PRN (20:54)
[2018-11-24] MEDS: traZODone HCl 50 MG TAB PO SCH (22:13)
[2018-11-24] MEDS: Atorvastatin Calcium 40 MG TAB PO SCH (22:21)
[2018-11-25] MEDS: Carvedilol 6.25 MG TAB PO SCH ×2 (08:11→18:15)
--- NOTE | 2018-11-25 09:12 | PDOC.FM ---
- Subjective Subjective: Pt had ostomy procedure performed yesterday with no complications. Today denied any pain, nausea, or vomiting. - Objective Vital Signs & Weight: Vital Signs (12 hours) Temp Pulse Resp BP BP Pulse Ox 11/25/18 08:11 132/78 11/25/18 07:20 97.7 F 70 16 132/78 94 L 11/25/18 04:26 97.8 F 70 16 132/78 92 L 11/25/18 00:15 97.9 F 72 16 143/79 H 93 L 11/25/18 00:00 93 L 11/24/18 22:04 97.9 F 70 18 148/82 H 11/24/18 21:26 97.8 F 71 18 167/86 H 94 L Weight Admit Weight 83.007 kg Weight 87.77 kg I&O: 11/24/18 11/25/18 11/26/18 06:59 06:59 06:59 Intake Total 630 120 Output Total 7 700 Balance 623 -580 Result Diagrams: 11/23/18 06:29 11/23/18 06:29 Phys Exam - Physical Examination Constitutional: NAD HEENT: PERRLA, moist MMs Neck: no JVD, full ROM Respiratory: no wheezing, no rhonchi few fine crackles Cardiovascular: RRR, no significant murmur Gastrointestinal: soft, no distention Diffusely tender (grimacing), diminished bowel sounds Ostomy bag with serosanguinous drainage in LLQ Musculoskeletal: no edema, pulses present Chronic rt sided weakness and expressive aphasia Psychiatric: normal affect Skin: no rash, cap refill <2 seconds Dx/Plan (1) Prostate CA Code(s): C61 - MALIGNANT NEOPLASM OF PROSTATE Status: Chronic (2) Colonic obstruction Code(s): K56.609 - UNSP INTESTNL OBST, UNSP TO PARTIAL VERSUS COMPLETE OBST Status: Acute (3) Intractable vomiting with nausea Code(s): R11.2 - NAUSEA WITH VOMITING, UNSPECIFIED Status: Resolved (4) Hyperbilirubinemia Code(s): E80.6 - OTHER DISORDERS OF BILIRUBIN METABOLISM Status: Acute (5) CHF (congestive heart failure) Code(s): I50.9 - HEART FAILURE, UNSPECIFIED Status: Chronic Qualifiers: Heart failure chronicity: chronic (6) History of CVA (cerebrovascular accident) Code(s): Z86.73 - PRSNL HX OF TIA (TIA), AND CEREB INFRC W/O RESID DEFICITS Status: Chronic (7) Diverticulosis Code(s): K57.90 - DVRTCLOS OF INTEST, PART UNSP, W/O PERF OR ABSCESS W/O BLEED Status: Chronic (8) Hypokalemia Code(s): E87.6 - HYPOKALEMIA Status: Acute - Plan Plan: Prostate Cancer Radiation in 2000 - CT abd/pelvis shows possible signs of distal sigmoid/rectum neoplasm that were present on CT last year, newly found periaortic nodes - Total PSA 62.1, Free PSA 8.39 - Oncololgy consulted: spoke with pt about treatment of his recurrent prostate CA, he adamantly refused and does not wish to proceed with any treatment - GI: flex sig showed high grade obstruction in sigmoid colon that appeared to be extraluminal - Surgery: Dr. Bravo diverting sigmoidostomy yesterday Dysphagia - Hx of esophageal dilation - Speech therapy consult - GI: EGD normal - Barium swallow study ordered Chronic diarrhea - resolved - Repeat stool studies were negative for any infectious etiologies - ESR: 21 and TSH: 0.77, so unlikely chronic inflammation or endocrine causes of diarrhea - CT abdomen and pelvis shows bowel wall thickening and pericolonic fat stranding around the sigmoid and rectum, as well as abd LAD significant for possible neoplastic process, discussed with pt - per GI, this change was noted on prior CT last year, newly found was periaortic lymph nodes - Having partially formed stools - GI consulted - flex sig and EGD yesterday; EGD w/ dilation normla, flex sig showed high grade distal sigmoid obstruction - Surgery consulted: saw performed lap diverting sigmoidotomy - Pt recovering well, requesting food Intractable vomiting with nausea and mild dehydration - resolved - Currently NPO for procedures today - IVF stopped due to good PO fluid intake and mild rales on exam - Was tolerating PO without vomiting since admission - Zofran prn - Megace for appetite stimulation - Barium swallow study today Hyperbilirubinemia - resolved - Tbili - 1.6 > 1.3 > 1 CHF - Resumed home Torsemide yesterday Afib - Holding eliquis for procedure Hx CVA w/ Aphasia - Eliquis held in post op day 1 pt Hypokalemia -mild, replacing as needed Line: Peripheral DVT Prophylaxis: Eliquis held 11/23 Condition: Stable Code Status: DNAR Diet: Full liquid - advancing per surg recs IVF: None Dispo: Diverting colonostomy yesterday, recovering well, scheduled for barium swallow study today Addendum - Attending - Attending Attestation Date/Time: 11/25/18 3855 I personally evaluated the patient and discussed the management with Dr. Rolon. I agree with the History, Examination, Assessment and Plan documented above with any addition or exceptions noted below. pod #1 s/p palliative diverting colostomy- recovering well. dysphagia- patient unsure if he is willing to have the barium swallow ordered for today. Dr. Rolon to return to discuss option of continued aggressive medical care vs hospice/palliative care (as patient adamantly refusing chemotherapy for his metastatic prostate cancer.
[2018-11-25] MEDS: Divalproex Sodium 125 mg Sprinkle Capsule PO SCH ×2 (14:50→22:28)
[2018-11-25] MEDS: Escitalopram Oxalate 10 mg Tablet PO SCH (14:50)
[2018-11-25] MEDS: Megestrol Acetate 40 MG TAB PO SCH ×3 (14:50→22:29)
[2018-11-25] MEDS: rOPINIRole HCl 1 MG TAB PO SCH ×2 (14:51→22:23)
[2018-11-25] MEDS: Pantoprazole 40 MG VIAL IVP SCH ×2 (14:51→22:28)
[2018-11-25] MEDS: Torsemide 20 MG TAB PO SCH (14:51)
--- NOTE | 2018-11-25 16:11 | RAD ---
MODIFIED BARIUM SWALLOW IN THE PRESENCE OF A SPEECH THERAPIST: Date: 11/25/18 HISTORY: Dysphagia, unspecified. Feeding difficulties. FINDINGS/IMPRESSION: Laryngeal penetration is seen without aspiration. No persistent pooling of contrast is seen in the pi riform sinuses or the vallecula. Please see recommendations of the speech therapist for further management. POS: ROBERT
--- NOTE | 2018-11-25 19:51 | PDOC.GSPN ---
Surgery Progress Note: Subj - Subjective Narrative: Patient is doing well status post laparoscopic colostomy. No colostomy output yet but the patient denies abdominal pain or nausea. His incisions are healing well and his colostomy is edematous but viable. He is tolerating his diet. Dr. Mccrary is covering this weekend for surgery. The patient can advance his diet and activities as tolerated. Surgery Progress Note: Obj - Vital signs Vital signs: Vital Signs - Most Recent Temp Pulse Resp BP Pulse Ox 98.4 F 70 16 143/77 H 95 11/25/18 19:44 11/25/18 19:44 11/25/18 19:44 11/25/18 19:44 11/25/18 19:44 Surgery Progress Note: Results - Labs Result Diagrams: 11/23/18 06:29 11/23/18 06:29
--- NOTE | 2018-11-25 20:22 | PDOC.OP ---
Operative Note - Operative Note Operative Note: PROCEDURE: Laparoscopic colostomy SURGEON: Yo Bravo M.D. DATE: 11/24/2018 PREOPERATIVE DIAGNOSIS: Sigmoid obstruction POSTOPERATIVE DIAGNOSIS: Sigmoid obstruction HISTORY: Patient with metastatic prostate cancer for which she has refused treatment. He has a sigmoid stricture at 15 cm which has progressed and is now unable to be traversed with the endoscope. This is believed to be a malignant structure due to external compression by enlarged lymph nodes in the region. He has decided to proceed with diverting colostomy. PROCEDURE IN DETAIL: After informed consent was obtained and appropriate preoperative antibiotics were administered the patient was taken to the operating room he was placed in the supine position and general endotracheal anesthesia was administered. The stomach was decompressed with an OG tube and the bladder with a Kolb catheter. He was prepped and draped in a standard sterile fashion. Local anesthesia was infused to the skin and subcutaneous taste tissues at the level of the umbilicus. A transverse skin incision was made and the fascia was elevated. A Veress needle was placed on into the abdomen but insufflation pressures rapidly di to 15, consistent with insufflation into the preperitoneal tissues. A second attempt was made with the same results. The skin incision was extended and dissection carried down to the fascia which was incised under direct vision. The peritoneum was grasped and drawn up into the wound and incised. There were no palpable adhesions in the area. A trocar was placed into the abdomen and The gas insufflated to an intra- abdominal pressure 15 which was tolerated well. A laparoscope was advanced into the abdominal cavity. There is no evidence of trocar or Veress needle injury. The proximal sigmoid colon appeared somewhat distended but healthy. A second trocar was placed in the upper midline under direct laparoscopic vision and the sigmoid colon was noted to be mobile and redundant enough to reach up to the abdominal wall. An appropriate location for the colostomy was identified and marked on the abdominal wall, and local anesthesia infused. A circular incision was made and dissection carried down to the anterior rectus sheath which was incised in a cruciate manner. The muscles were split in the direction of their fibers the posterior sheath incised under direct vision. The underlying sigmoid colon was grasped with a Clear retractor and drawn out through the defect. This was confirmed to be free of tension and correctly oriented laparoscopically. A window was created through the mesentery and a red rubber catheter placed through this. Red rubber catheter was secured to the skin. The upper midline trocar was removed under direct laparoscopic vision and hemostasis verified. Carbon dioxide gas was allowed to desufflate through the umbilical trocar which was then removed. The fascia at the umbilicus was closed under direct vision with a 0 Vicryl suture and additional local anesthesia infused. The skin incisions were closed with 4-0 subcuticular Monocryl suture and Dermabond dressings were applied. Attention was then turned to maturing the colostomy. The colon was secured to the anterior rectus sheath at several locations with 3-0 Vicryl sutures. A 7030 proximal to distal transverse split was created and an everted eagle type colostomy was created by securing full- thickness bites of the edge of the colon to Lembert sutures and then to the dermis at 3 locations on each side of the colostomy. The edge of the colon was then secured to the dermis at intervals between the sutures. Both limbs of the colostomy were palpated and were patent through the fascia. A colostomy appliance was placed and the patient was extubated and taken to recovery in good condition. Estimated blood loss is minimal. There were no complications. There were no specimens.
[2018-11-25] MEDS: traZODone HCl 50 MG TAB PO SCH (22:23)
[2018-11-25] MEDS: HYDROcodone/Acetaminophen 5/325 mg Tablet PO PRN (22:23)
[2018-11-25] MEDS: Atorvastatin Calcium 40 MG TAB PO SCH (22:28)
--- NOTE | 2018-11-26 05:49 | PDOC.FM ---
- Subjective Subjective: Pt is resting comfortably today. No events overnight. Denies any pain, nausea, or vomiting. - Objective Vital Signs & Weight: Vital Signs (12 hours) Temp Pulse Resp BP BP Pulse Ox 11/25/18 20:00 96 11/25/18 19:44 98.4 F 70 16 143/77 H 95 11/25/18 18:15 132/78 Weight Admit Weight 83.007 kg Weight 87.77 kg I&O: 11/24/18 11/25/18 11/26/18 06:59 06:59 06:59 Intake Total 630 120 Output Total 7 700 250 Balance 732 -655 -146 Result Diagrams: 11/23/18 06:29 11/23/18 06:29 Phys Exam - Physical Examination Constitutional: NAD HEENT: PERRLA, moist MMs Neck: no JVD, full ROM Respiratory: no wheezing, no rhonchi, clear to auscultation bilateral Few crackles at bases Cardiovascular: RRR, no significant murmur Gastrointestinal: soft, no distention BS present, mild diffuse tenderness (w/ grimace) Musculoskeletal: no edema, pulses present Neurological: moves all 4 limbs At baseline Skin: no rash, cap refill <2 seconds Dx/Plan (1) Prostate CA Code(s): C61 - MALIGNANT NEOPLASM OF PROSTATE Status: Chronic (2) Colonic obstruction Code(s): K56.609 - UNSP INTESTNL OBST, UNSP TO PARTIAL VERSUS COMPLETE OBST Status: Acute (3) Intractable vomiting with nausea Code(s): R11.2 - NAUSEA WITH VOMITING, UNSPECIFIED Status: Resolved (4) Hyperbilirubinemia Code(s): E80.6 - OTHER DISORDERS OF BILIRUBIN METABOLISM Status: Acute (5) CHF (congestive heart failure) Code(s): I50.9 - HEART FAILURE, UNSPECIFIED Status: Chronic Qualifiers: Heart failure chronicity: chronic (6) History of CVA (cerebrovascular accident) Code(s): Z86.73 - PRSNL HX OF TIA (TIA), AND CEREB INFRC W/O RESID DEFICITS Status: Chronic (7) Diverticulosis Code(s): K57.90 - DVRTCLOS OF INTEST, PART UNSP, W/O PERF OR ABSCESS W/O BLEED Status: Chronic (8) Hypokalemia Code(s): E87.6 - HYPOKALEMIA Status: Acute - Plan Plan: Prostate Cancer Radiation in 2000 - CT abd/pelvis shows possible signs of distal sigmoid/rectum neoplasm that were present on CT last year, newly found periaortic nodes - Total PSA 62.1, Free PSA 8.39 - Oncololgy consulted: spoke with pt about treatment of his recurrent prostate CA, he adamantly refused and does not wish to proceed with any treatment - GI: flex sig showed high grade obstruction in sigmoid colon that appeared to be extraluminal - Surgery: Dr. Bravo diverting sigmoidostomy 11/24/18, no complications, no stool in bag at this point Dysphagia - Hx of esophageal dilation - Speech therapy consult - GI: EGD normal - Barium swallow study performed with no acute findings Chronic diarrhea - resolved - Repeat stool studies were negative for any infectious etiologies - ESR: 21 and TSH: 0.77, so unlikely chronic inflammation or endocrine causes of diarrhea - CT abdomen and pelvis shows bowel wall thickening and pericolonic fat stranding around the sigmoid and rectum, as well as abd LAD significant for possible neoplastic process, discussed with pt - per GI, this change was noted on prior CT last year, newly found was periaortic lymph nodes - Having partially formed stools - GI consulted - flex sig and EGD yesterday; EGD w/ dilation normla, flex sig showed high grade distal sigmoid obstruction - Surgery consulted: saw performed lap diverting sigmoidotomy - Pt recovering well, requesting food Intractable vomiting with nausea and mild dehydration - resolved - Currently NPO for procedures today - IVF stopped due to good PO fluid intake and mild rales on exam - Was tolerating PO without vomiting since admission - Zofran prn - Megace for appetite stimulation - EGD and Barium swallow nml Hyperbilirubinemia - resolved - Tbili - 1.6 > 1.3 > 1 CHF - Resumed home Torsemide Afib - Holding eliquis for procedure Hx CVA w/ Aphasia - Eliquis held in post op pt Hypokalemia -mild, replacing as needed Line: Peripheral DVT Prophylaxis: Eliquis held 11/23 Condition: Stable Code Status: DNAR Diet: Full liquid - advancing as tolerated IVF: None Dispo: Post op day 2, pt does not have a complete understanding of his disease process/burden, medically he is stable and nearing baseline, expect DC within the next couple days as diet is advanced to assess tolerance, still determining whether to rehab or home with caregiver Addendum - Attending - Attending Attestation Date/Time: 11/26/18 5164 I personally evaluated the patient and discussed the management with Dr. Rolon. I agree with the History, Examination, Assessment and Plan documented above with any addition or exceptions noted below. Patient overall stable. Encourage PO intake to assess diet toleration. He is currently refusing chemo or further workup. Work on dispo for either rehab/SNU or home with caregivers.
[2018-11-26] MEDS: Divalproex Sodium 125 mg Sprinkle Capsule PO SCH ×2 (10:09→20:08)
[2018-11-26] MEDS: Escitalopram Oxalate 10 mg Tablet PO SCH (10:09)
[2018-11-26] MEDS: Megestrol Acetate 40 MG TAB PO SCH ×4 (10:09→20:08)
[2018-11-26] MEDS: Carvedilol 6.25 MG TAB PO SCH ×2 (10:09→18:32)
[2018-11-26] MEDS: rOPINIRole HCl 1 MG TAB PO SCH ×2 (10:10→20:08)
[2018-11-26] MEDS: Torsemide 20 MG TAB PO SCH (10:10)
[2018-11-26] MEDS: Pantoprazole 40 MG VIAL IVP SCH ×2 (10:10→20:08)
--- NOTE | 2018-11-26 11:22 | PRG ---
DATE OF SERVICE: 11/26/2018 SUBJECTIVE: I am seeing Mr. Bryan on behalf of Dr. Bravo. The patient is postoperative day #1, status post diverting sigmoid colostomy. The patient is awake and alert this morning reporting adequate pain control. OBJECTIVE: VITAL SIGNS: Include blood pressure 127/70, pulse 71, respiratory rate is 14, temperature 97.6 degrees Fahrenheit, oxygen saturation 95% on room air. HEENT: Pupils equal, round, and reactive to light and accommodation. HEART: Reveals regular rate and rhythm. No murmurs or gallops auscultated. LUNGS: Clear to auscultation bilaterally. Breathing, regular and nonlabored. ABDOMEN: Soft, nondistended. Incisions are intact, clean, dry. Colostomy is viable and edematous with no stool or gas output at the moment. NEUROLOGIC: Reveals no focal deficits present. IMPRESSION: Postop day #1, status post laparoscopic diverting sigmoid colostomy. The patient is hemodynamically stable. PLAN: 1. Increase activity per Physical and Occupational Therapy. 2. Anticipate discharge to inpatient rehabilitation in the next few days upon bed availability and insurance authorization. Job ID: [id number]
[2018-11-26] MEDS: traZODone HCl 50 MG TAB PO SCH (20:08)
[2018-11-26] MEDS: Atorvastatin Calcium 40 MG TAB PO SCH (20:08)
[2018-11-26] MEDS: HYDROcodone/Acetaminophen 5/325 mg Tablet PO PRN (20:22)
--- NOTE | 2018-11-27 05:16 | PDOC.FM ---
- Subjective Subjective: Pt had no events overnight. Denies any pain, nausea, or vomiting. Staff state he ate ~50% of his regular diet without difficulty. Spoke with Case Management yesterday. They stated that pt was originally in the process of approval for d/c to [place] but they are requesting updated assessments post operatively. I know that the family would prefer the pt to be in a facility with additional care available beyond what his home caregiver can provide. Brother noted a couple of days ago that pt now requires assistance with transfer which he was able to do on his own prior to arrival. Pt also currently incontinent to urine, which may just be a transient effect of his recent quinteros, but if this continues he may very well require more assistance than his current caregiver is capable of. - Objective Vital Signs & Weight: Vital Signs (12 hours) Temp Pulse Resp BP Pulse Ox 11/26/18 19:12 98.1 F 69 14 126/73 95 Weight Admit Weight 83.007 kg Weight 87.77 kg I&O: 11/25/18 11/26/18 11/27/18 06:59 06:59 06:59 Intake Total 120 Output Total 700 250 Balance -580 -250 Result Diagrams: 11/23/18 06:29 11/27/18 04:38 Phys Exam - Physical Examination Constitutional: NAD HEENT: PERRLA, moist MMs Neck: no JVD, full ROM Respiratory: no wheezing, no rales, no rhonchi, clear to auscultation bilateral Cardiovascular: RRR, no significant murmur, no rub Gastrointestinal: soft, no distention, positive bowel sounds Bowel sounds now normal, some dark/brown watery fluid present in ostomy bag Musculoskeletal: no edema, pulses present Baseline deficits Skin: no rash, cap refill <2 seconds Dx/Plan (1) Prostate CA Code(s): C61 - MALIGNANT NEOPLASM OF PROSTATE Status: Chronic (2) Colonic obstruction Code(s): K56.609 - UNSP INTESTNL OBST, UNSP TO PARTIAL VERSUS COMPLETE OBST Status: Acute (3) Intractable vomiting with nausea Code(s): R11.2 - NAUSEA WITH VOMITING, UNSPECIFIED Status: Resolved (4) Hyperbilirubinemia Code(s): E80.6 - OTHER DISORDERS OF BILIRUBIN METABOLISM Status: Acute (5) CHF (congestive heart failure) Code(s): I50.9 - HEART FAILURE, UNSPECIFIED Status: Chronic Qualifiers: Heart failure chronicity: chronic (6) History of CVA (cerebrovascular accident) Code(s): Z86.73 - PRSNL HX OF TIA (TIA), AND CEREB INFRC W/O RESID DEFICITS Status: Chronic (7) Diverticulosis Code(s): K57.90 - DVRTCLOS OF INTEST, PART UNSP, W/O PERF OR ABSCESS W/O BLEED Status: Chronic (8) Hypokalemia Code(s): E87.6 - HYPOKALEMIA Status: Acute - Plan Plan: Prostate Cancer Radiation in 2000 - CT abd/pelvis shows possible signs of distal sigmoid/rectum neoplasm that were present on CT last year, newly found periaortic nodes - Total PSA 62.1, Free PSA 8.39 - Oncololgy consulted: spoke with pt about treatment of his recurrent prostate CA, he adamantly refused and does not wish to proceed with any treatment - GI: flex sig showed high grade obstruction in sigmoid colon that appeared to be extraluminal - Surgery: Dr. Bravo diverting sigmoidostomy 11/24/18, no complications (post op day 3), watery brown fluid present in ostomy bag - awaiting confirmed function of ostomy with tolerating regular diet Dysphagia - Hx of esophageal dilation - Speech therapy consult - GI: EGD normal - Barium swallow study performed with no acute findings Chronic diarrhea - resolved - Repeat stool studies were negative for any infectious etiologies - ESR: 21 and TSH: 0.77, so unlikely chronic inflammation or endocrine causes of diarrhea - CT abdomen and pelvis shows bowel wall thickening and pericolonic fat stranding around the sigmoid and rectum, as well as abd LAD significant for possible neoplastic process, discussed with pt - per GI, this change was noted on prior CT last year, newly found was periaortic lymph nodes - Having partially formed stools - GI consulted - flex sig and EGD yesterday; EGD w/ dilation normla, flex sig showed high grade distal sigmoid obstruction - Surgery consulted: performed lap diverting sigmoidotomy - Pt recovering well, requesting food Intractable vomiting with nausea and mild dehydration - resolved - Currently NPO for procedures today - IVF stopped due to good PO fluid intake and mild rales on exam - Was tolerating PO without vomiting since admission - Zofran prn - Megace for appetite stimulation - EGD and Barium swallow nml Hyperbilirubinemia - resolved - Tbili - 1.6 > 1.3 > 1 CHF - Resumed home Torsemide Afib - Holding eliquis for procedure Hx CVA w/ Aphasia - Eliquis held in post op pt Hypokalemia -mild, replacing as needed Line: Peripheral DVT Prophylaxis: Eliquis held 11/23 Condition: Stable Code Status: DNAR Diet: Full liquid - advancing as tolerated IVF: None Dispo: Post op day 3, pt does not have a complete understanding of his disease process/burden, medically he is stable and nearing baseline, awaiting confirmed function of ostomy as no stool has been produced in the bag yet, advancing diet as tolerated, CM working on placement, PT to re-evaluate pt as previous evaluation was pre-operative. Addendum - Attending - Attending Attestation Date/Time: 11/27/18 1632 I personally evaluated the patient and discussed the management with Dr. Rolon. I agree with the History, Examination, Assessment and Plan documented above with any addition or exceptions noted below. Patient here with complications from likely spread of prostate malignancy. He is s/p diverting colostomy. He is a very complicated social situation as the [facility] is some third democrat not very familiar with the patient. Overall it seems family is in agreement that patient should d/c to SNF or other facility and we are working on that. Patient apparently deemed incompetent to make medical decisions for himself in the past but does have some input. He is not interested in cancer treatment though it is uncertain how much he understands regarding his disease. Awaiting function of his ostomy, Gen Surgery recs. Continue to work on dispo.
[2018-11-27 05:21] LABS: Anion Gap 15 mmol/L (10-20); BUN (Urea Nitrogen) 14 mg/dL (8.4-25.7); Calc. Creatinine Clearance 88 mL/min (70-130); Calcium 8.9 mg/dL (7.8-10.44); Carbon Dioxide 24 mmol/L (23-31); Chloride 99 mmol/L (98-107); Estimated GFR-MDRD 74; Glucose 82 mg/dL (80-115); Phosphorus 2.9 mg/dL (2.3-4.7); Potassium 3.5 mmol/L (3.5-5.1); Sodium 134 mmol/L (136-145)
--- NOTE | 2018-11-27 05:25 | PDOC.EVN ---
Event Note - Event Note Event Note: Went to speak with brother and pt about treatment options. Brother requested to speak with me alone prior. He mentioned that he spoke with pt via note pad yesterday and showed me the conversation. Stated that he was concerned that staff has been treating pt as if he has more cognitive function than what he is really capable of and that his cognitive deficits have left him unable to comprehend his current state of health. I independently preformed an assessment of the pt's cognitive function and understanding of his current medical problems and also assessed his willingness to treat these both specifically and in general terms. It was clear that the pt could only appropriately comprehend short prompts and answer yes/no questions. Pt was very clear that he does NOT believe he has prostate cancer, nor does he believe he EVER had prostate cancer (which he was previously treated for prior to his CVA). The pt did however note his wishes to treat his medical conditions aggressively noting he valued his health getting better more than things getting easier/staying comfortable. After this discussion I spoke with brother again and reiterated that the decision to start chemotherapy is in the hands of the MPOA ([employer] pharmaceutical sales representative Kelly Pires). This matter is neither emergent nor necessary to be done in the inpt setting. That said, it would behoove all parties involved - brother, son, caregiver, MPOA, to have a joint discussion of what they felt the pt would both benefit from most and what path would be most inline with his wishes. Akbar Rolon - PGY1
[2018-11-27] MEDS: Escitalopram Oxalate 10 mg Tablet PO SCH (09:15)
[2018-11-27] MEDS: Carvedilol 6.25 MG TAB PO SCH ×2 (09:15→17:59)
[2018-11-27] MEDS: Megestrol Acetate 40 MG TAB PO SCH ×4 (09:15→20:11)
[2018-11-27] MEDS: rOPINIRole HCl 1 MG TAB PO SCH ×2 (09:18→20:11)
[2018-11-27] MEDS: Divalproex Sodium 125 mg Sprinkle Capsule PO SCH ×2 (09:18→20:12)
[2018-11-27] MEDS: Torsemide 20 MG TAB PO SCH (09:18)
--- NOTE | 2018-11-27 09:19 | PRG ---
DATE OF SERVICE: 11/27/2018 SUBJECTIVE: The patient is currently on the Oncology floor. He is postop day 1, status post diverting sigmoid colostomy by Dr. Bravo. By report, the patient is tolerating a diet. His pain is controlled. OBJECTIVE: VITAL SIGNS: Stable. The patient is afebrile. GENERAL: When I went into the room, the patient was asleep. I was able to observe his ostomy site. That appeared intact and functioning. There was minimal air in the bag and a very scant amount of liquid stool. ASSESSMENT: Status post laparoscopic diverting sigmoid colostomy, postop day 1. PLAN: Plan will be to continue supportive care. Diet as tolerated and encouraged out of bed. We will continue to monitor his ostomy function. Job ID: [id number]
[2018-11-27] MEDS: Pantoprazole 40 MG VIAL IVP SCH (09:41)
--- NOTE | 2018-11-27 14:52 | PDOC.GSPN ---
Surgery Progress Note: Subj - Subjective Narrative: Mr. Bryan is a 68 year old male who is day 2 s/p diverting sigmoid colectomy. This morning he was awake and alert, asking when he can go back to his apartment. He currently denies pain and nausea. He is tolerating his diet well. Surgery Progress Note: Obj - Vital signs Vital signs: Vital Signs - Most Recent Temp Pulse Resp BP Pulse Ox 97.3 F L 69 16 126/67 95 11/27/18 07:28 11/27/18 07:28 11/27/18 07:28 11/27/18 07:28 11/27/18 07:28 - Physical Exam General: no distress, no pain Cardiovascular: regular rate and rhythm, no murmur Respiratory: clear to auscultation Abdomen: soft, non tender, nondistended, positive bowel sounds (NABS) Wound: ostomy/colostomy (viable, but without stool output at this time) Surgery Progress Note: Results - Labs Result Diagrams: 11/23/18 06:29 11/27/18 04:38 Surgery Progress Note: A/P - Problem (1) S/P colostomy Current Visit: Yes Code(s): Z93.3 - COLOSTOMY STATUS Status: Acute Assessment and Plan: Patient is day 2 s/p laparoscopic diverting sigmoid colostomy. He is stable and without post-operative complication. Plan: 1. Continue having patient work with PT/OT to increase activity. 2. Follow up with social work to determine patient's status for rehab placement. This patient was seen by myself and Dr. Mccrary together. This plan was discussed and agreed upon by Dr. Mccrary as well.
[2018-11-27] MEDS: Atorvastatin Calcium 40 MG TAB PO SCH (20:12)
[2018-11-27] MEDS: Apixaban 5 MG TAB PO SCH (20:12)
[2018-11-27] MEDS: traZODone HCl 50 MG TAB PO SCH (21:00)
[2018-11-28] MEDS: traZODone HCl 50 MG TAB PO SCH ×2 (00:59→20:49)
--- NOTE | 2018-11-28 02:39 | PRG ---
DATE OF SERVICE: 11/28/2018 SUBJECTIVE: The patient who is currently on the Oncology floor is postop day #2, status post a diverting sigmoid colectomy. Last night on my exam, he has air and scant amount of liquid stool. Today, on exam, the patient appears comfortable. He denies any nausea or pain. His ostomy appears to be viable. Again, there was air in and more liquid stool in his bag at this time. ASSESSMENT AND PLAN: Postop day #2, status post laparoscopic diverting sigmoid colostomy. Plan will be to continue his diet. Encourage mobility and we will check the function of his ostomy again tomorrow. Tomorrow, Dr. Bravo will be back to resume care of this patient's surgical needs. Job ID: [id number]
--- NOTE | 2018-11-28 05:24 | PDOC.FM ---
- Subjective Subjective: He states he does not have any pain, N/V. Endorsed an appetite. Nurse states he did not participate in his care and does has not participated with PT/OT. - Objective Vital Signs & Weight: Vital Signs (12 hours) Temp Pulse Resp BP Pulse Ox 11/27/18 20:00 94 L 11/27/18 19:46 97.6 F 70 16 113/68 94 L Weight Admit Weight 83.007 kg Weight 87.77 kg I&O: 11/26/18 11/27/18 11/28/18 06:59 06:59 06:59 Intake Total 300 Output Total 250 250 Balance -250 50 Result Diagrams: 11/23/18 06:29 11/27/18 04:38 Phys Exam - Physical Examination Constitutional: NAD Respiratory: no wheezing, no rales, no rhonchi Cardiovascular: RRR, no significant murmur Gastrointestinal: soft, no distention Pt has ostomy in place appropriately, no stool at this point Musculoskeletal: no edema Right sided deficits Dx/Plan (1) Colonic obstruction Code(s): K56.609 - UNSP INTESTNL OBST, UNSP TO PARTIAL VERSUS COMPLETE OBST Status: Acute (2) S/P colostomy Code(s): Z93.3 - COLOSTOMY STATUS Status: Acute (3) CHF (congestive heart failure) Code(s): I50.9 - HEART FAILURE, UNSPECIFIED Status: Chronic Qualifiers: Heart failure chronicity: chronic (4) History of CVA (cerebrovascular accident) Code(s): Z86.73 - PRSNL HX OF TIA (TIA), AND CEREB INFRC W/O RESID DEFICITS Status: Chronic (5) Prostate CA Code(s): C61 - MALIGNANT NEOPLASM OF PROSTATE Status: Chronic (6) Intractable vomiting with nausea Code(s): R11.2 - NAUSEA WITH VOMITING, UNSPECIFIED Status: Resolved - Plan Plan: Diverting Sigmoidostomy for High Grade Colon Obstruction likely secondary to Prostate Cancer - GI: flex sig showed high grade obstruction in sigmoid colon that appeared to be extraluminal resulting in diverting sigmoidostomy - Surgery: Dr. Bravo diverting sigmoidostomy 11/24/18, no complications (post op day 4 ), watery brown fluid present in ostomy bag - awaiting confirmed function of ostomy with tolerating regular diet - Will discuss pt placement with Case Management about rehab placemnt. Pt seems to need elevated care from home rippler as he now has new ostomy requring higher level of care ontop of his chronic deficits post CVA. PT/OT evaluated this morning and recommend rehab, he agreed to rehab. - pending return of function to ostomy. Prostate Cancer Radiation in 2000 - CT abd/pelvis shows possible signs of distal sigmoid/rectum neoplasm that were present on CT last year, newly found periaortic nodes - Total PSA 62.1, Free PSA 8.39 - Oncololgy consulted: Dr. Rolon spoke with pt about treatment of his recurrent prostate CA, he adamantly refused and does not wish to proceed with any treatment. Will contact Bita Pires, medical decision maker, to discuss further care. Will encourage Bita Pires to involve family with decision. Dysphagia - Hx of esophageal dilation - Speech therapy consult - GI: EGD normal - Barium swallow study performed with no acute findings Chronic diarrhea - resolved - Repeat stool studies were negative for any infectious etiologies - ESR: 21 and TSH: 0.77, so unlikely chronic inflammation or endocrine causes of diarrhea - CT abdomen and pelvis shows bowel wall thickening and pericolonic fat stranding around the sigmoid and rectum, as well as abd LAD significant for possible neoplastic process, discussed with pt - per GI, this change was noted on prior CT last year, newly found was periaortic lymph nodes - Having partially formed stools - GI consulted - flex sig and EGD performed; EGD w/ dilation normla, flex sig showed high grade distal sigmoid obstruction - Surgery consulted: performed lap diverting sigmoidotomy - Pt recovering well, requesting food Intractable vomiting with nausea and mild dehydration - resolved - Currently NPO for procedures today - IVF stopped due to good PO fluid intake and mild rales on exam - Was tolerating PO without vomiting since admission - Zofran prn - Megace for appetite stimulation - EGD and Barium swallow nml Hyperbilirubinemia - resolved - Tbili - 1.6 > 1.3 > 1 CHF - Resumed home Torsemide Afib - Eliquis restarted Hx CVA w/ Aphasia - Eliquis restarted Hypokalemia -mild, replacing as needed Line: Peripheral DVT Prophylaxis: Restarted Eliquis Condition: Stable Code Status: DNAR Diet: Full liquid - advancing as tolerated IVF: None Dispo: Post op day 4, pt does not have a complete understanding of his disease process/burden, medically he is stable and nearing baseline, awaiting confirmed function of ostomy as no stool has been produced in the bag yet, advancing diet as tolerated, CM working on placement, PT recommends rehab. Addendum - Attending - Attending Attestation Date/Time: 11/28/18 1871 I personally evaluated the patient and discussed the management with Dr. Mcmahan. I agree with the History, Examination, Assessment and Plan documented above with any addition or exceptions noted below. Patient overall stable. Continue PO intake and await readiness of his ostomy. General surgery on board. Placement is difficult in this patient's case due to family and MPOA dynamics. He will need to work with PT if they have any hope of him moving to SNF.
[2018-11-28] MEDS: Megestrol Acetate 40 MG TAB PO SCH ×4 (08:49→20:49)
[2018-11-28] MEDS: Escitalopram Oxalate 10 mg Tablet PO SCH (08:49)
[2018-11-28] MEDS: rOPINIRole HCl 1 MG TAB PO SCH ×2 (08:49→20:49)
[2018-11-28] MEDS: Carvedilol 6.25 MG TAB PO SCH ×2 (08:49→18:43)
[2018-11-28] MEDS: Divalproex Sodium 125 mg Sprinkle Capsule PO SCH ×2 (08:50→20:49)
[2018-11-28] MEDS: Torsemide 20 MG TAB PO SCH (08:50)
--- NOTE | 2018-11-28 12:42 | PRG ---
DATE OF SERVICE: 11/25/2018 SUBJECTIVE: Mr. Bryan underwent diverting colostomy yesterday. He had a modified barium swallow today showed a little bit aspiration with some penetration with some thin liquids. They have felt that the medicine should be possibly crushed . Presently, the patient is sleeping. Nurse notes he has been eating some, but no diarrhea. OBJECTIVE: VITAL SIGNS: Temp 97.7, blood pressure 132/78. ABDOMEN: Not examined. He is sleeping. surgery today. ASSESSMENT: 1. Oropharyngeal dysphagia. not felt to be risk for aspiration, feeding recommendation per Speech Pathology. 2. Esophagogastroduodenoscopy two days ago showed no signs of mechanical obstruction or dysphagia. Maybe he has some component of nausea. He does have a fairly metastatic disease in the abdomen from the prostate cancer that may be related to this. He has refused treatment. 3. Metastatic prostate cancer. 4. Obstruction at the level of the sigmoid colon, status post diverting ostomy. Endoscopically, . It was noted last on CAT scan noted acute diverticulitis. No evidence of fever or abscess. The patient opted for diverting ostomy of Lupron which he responded to last summer. RECOMMENDATIONS: 1. Feeding as tolerated. 2. The patient may experience some component of nausea with his metastatic prostate cancer involving subsequently of the abdomen and inguinal region. I am not aware that any other findings were noted at the time of surgery by General Surgery. 3. Mild oropharyngeal dysphagia from previous stroke and he is fed as per recommendations from Speech Pathology. 4. Diarrhea, resolved, seems probably related to his high-grade partial obstruction of the colon. I would monitor this with time. 5. No further recommendations from a GI standpoint. If I can be of any further assistance, please do not hesitate to contact me. Job ID: [id number]
[2018-11-28] MEDS: Apixaban 5 MG TAB PO SCH ×2 (14:24→20:49)
[2018-11-28] MEDS: Docusate 100 MG CAP PO SCH (20:49)
[2018-11-28] MEDS: Atorvastatin Calcium 40 MG TAB PO SCH (20:50)
--- NOTE | 2018-11-28 21:29 | PRG ---
DATE OF SERVICE: 11/28/2018 SUBJECTIVE: Mr. Bryan denies any nausea or abdominal pain. He has not noticed any flatus or stool to pass through his colostomy yet, but he is tolerating his diet and eating 50% to 75% of his meals. OBJECTIVE: ABDOMEN: Soft and nondistended. His colostomy appears pink and healthy, although still somewhat edematous. It is less so than on Wednesday. It is patent through the fascia. ASSESSMENT: Status post colostomy, still awaiting function. This should begin within the next day or two. I have recommended stool softeners and laxatives, which the patient initially told me that he does not want to take, but hopefully he will change his mind about this. Job ID: [id number]
--- NOTE | 2018-11-29 06:41 | PDOC.FM ---
- Subjective Subjective: Pt is doing well today w/o any complaints. - Objective Vital Signs & Weight: Vital Signs (12 hours) Temp Pulse Resp BP Pulse Ox 11/28/18 19:56 97.6 F 70 16 113/71 100 11/28/18 19:51 100 Weight Admit Weight 83.007 kg Weight 87.77 kg I&O: 11/27/18 11/28/18 11/29/18 06:59 06:59 06:59 Intake Total 300 Output Total 250 Balance 50 Result Diagrams: 11/23/18 06:29 11/27/18 04:38 Phys Exam - Physical Examination Constitutional: NAD HEENT: PERRLA, moist MMs Neck: no nodes, no JVD Respiratory: no wheezing, no rales, no rhonchi, clear to auscultation bilateral Cardiovascular: RRR, no significant murmur Gastrointestinal: soft, non-tender, no distention Ostomy looks appropriate with brown liquid drainage Musculoskeletal: no edema, pulses present R sided weakness Psychiatric: normal affect, A&O x 3 Dx/Plan (1) Colonic obstruction Code(s): K56.609 - UNSP INTESTNL OBST, UNSP TO PARTIAL VERSUS COMPLETE OBST Status: Acute (2) S/P colostomy Code(s): Z93.3 - COLOSTOMY STATUS Status: Acute (3) CHF (congestive heart failure) Code(s): I50.9 - HEART FAILURE, UNSPECIFIED Status: Chronic Qualifiers: Heart failure chronicity: chronic (4) History of CVA (cerebrovascular accident) Code(s): Z86.73 - PRSNL HX OF TIA (TIA), AND CEREB INFRC W/O RESID DEFICITS Status: Chronic (5) Prostate CA Code(s): C61 - MALIGNANT NEOPLASM OF PROSTATE Status: Chronic (6) Intractable vomiting with nausea Code(s): R11.2 - NAUSEA WITH VOMITING, UNSPECIFIED Status: Resolved - Plan Plan: Diverting Sigmoidostomy for High Grade Colon Obstruction likely secondary to Prostate Cancer - GI: flex sig showed high grade obstruction in sigmoid colon that appeared to be extraluminal resulting in diverting sigmoidostomy - Surgery: Dr. Bravo diverting sigmoidostomy 11/24/18, no complications (post op day 4 ), watery brown fluid present in ostomy bag - awaiting confirmed function of ostomy with tolerating regular diet - Will discuss pt placement with Case Management about rehab placement. Pt seems to need elevated care from home custom miller as he now has new ostomy requring higher level of care ontop of his chronic deficits post CVA. PT/OT evaluated 11/29 and recommend rehab, he agreed to rehab. - pending return of function to ostomy. Prostate Cancer Radiation in 2000 - CT abd/pelvis shows possible signs of distal sigmoid/rectum neoplasm that were present on CT last year, newly found periaortic nodes - Total PSA 62.1, Free PSA 8.39 - Oncololgy consulted: Dr. Rolon spoke with pt about treatment of his recurrent prostate CA, he adamantly refused and does not wish to proceed with any treatment. Will contact Bita Pires, medical decision maker, to discuss further care. Will encourage Bita Pires to involve family with decision. Dysphagia - Hx of esophageal dilation - Speech therapy consult - GI: EGD normal - Barium swallow study performed with no acute findings Chronic diarrhea - resolved - Repeat stool studies were negative for any infectious etiologies - ESR: 21 and TSH: 0.77, so unlikely chronic inflammation or endocrine causes of diarrhea - CT abdomen and pelvis shows bowel wall thickening and pericolonic fat stranding around the sigmoid and rectum, as well as abd LAD significant for possible neoplastic process, discussed with pt - per GI, this change was noted on prior CT last year, newly found was periaortic lymph nodes - Having partially formed stools - GI consulted - flex sig and EGD performed; EGD w/ dilation normla, flex sig showed high grade distal sigmoid obstruction, appreciate rec's - Surgery consulted: performed lap diverting sigmoidotomy , appreciate recs Intractable vomiting with nausea and mild dehydration - resolved - Currently NPO for procedures today - IVF stopped due to good PO fluid intake and mild rales on exam - Was tolerating PO without vomiting since admission - Zofran prn - Megace for appetite stimulation - EGD and Barium swallow nml Hyperbilirubinemia - resolved - Tbili - 1.6 > 1.3 > 1 CHF - Resumed home Torsemide Afib - Eliquis restarted Hx CVA w/ Aphasia - Eliquis restarted Hypokalemia -mild, replacing as needed Line: Peripheral DVT Prophylaxis: Restarted Eliquis Condition: Stable Code Status: DNAR Diet: Full liquid - advancing as tolerated IVF: None Dispo: Post op day 5, pt does not have a complete understanding of his disease process/burden, medically he is stable and nearing baseline, awaiting confirmed function of ostomy as no stool has been produced in the bag yet, advancing diet as tolerated, CM working on placement, PT recommends rehab, pt agrees. Addendum - Attending - Attending Attestation Date/Time: 11/29/18 1050 I personally evaluated the patient and discussed the management with Dr. Mcmahan. I agree with the History, Examination, Assessment and Plan documented above with any addition or exceptions noted below. Patient overall doing stable. Approved by surgery for discharge. Awaiting placement to SNF decision. Otherwise stable.
[2018-11-29] MEDS ORDERED: Polyethylene Glycol 3350 17 GM Packet PER TUBE SCH (09:00)
[2018-11-29] MEDS: Polyethylene Glycol 3350 17 GM Packet PO SCH (09:07)
[2018-11-29] MEDS: Carvedilol 6.25 MG TAB PO SCH ×2 (09:08→16:58)
[2018-11-29] MEDS: Docusate 100 MG CAP PO SCH ×2 (09:08→21:00)
[2018-11-29] MEDS: Megestrol Acetate 40 MG TAB PO SCH ×4 (09:08→21:00)
[2018-11-29] MEDS: Divalproex Sodium 125 mg Sprinkle Capsule PO SCH ×2 (09:08→21:00)
[2018-11-29] MEDS: Apixaban 5 MG TAB PO SCH ×2 (09:08→21:00)
[2018-11-29] MEDS: Escitalopram Oxalate 10 mg Tablet PO SCH (09:08)
[2018-11-29] MEDS: Torsemide 20 MG TAB PO SCH (09:09)
[2018-11-29] MEDS: rOPINIRole HCl 1 MG TAB PO SCH ×2 (09:28→21:00)
[2018-11-29] MEDS: traZODone HCl 50 MG TAB PO SCH (20:29)
[2018-11-29] MEDS: Atorvastatin Calcium 40 MG TAB PO SCH (21:00)
--- NOTE | 2018-11-30 05:50 | PDOC.FM ---
- Subjective Subjective: Pt is doing well today. He has no complaints. No pain, nausea, vomiting - Objective Vital Signs & Weight: Vital Signs (12 hours) Temp Pulse Resp BP Pulse Ox 11/29/18 20:00 94 L 11/29/18 19:48 97.9 F 74 16 96/56 L 94 L Weight Admit Weight 83.007 kg Weight 87.77 kg I&O: 11/28/18 11/29/18 11/30/18 06:59 06:59 06:59 Intake Total 1200 Output Total 650 Balance 550 Result Diagrams: 11/23/18 06:29 11/27/18 04:38 Phys Exam - Physical Examination Constitutional: NAD HEENT: PERRLA, moist MMs Respiratory: no wheezing, no rales, no rhonchi, clear to auscultation bilateral Cardiovascular: RRR, no significant murmur Gastrointestinal: soft, non-tender, no distention, positive bowel sounds Ostomy WNL, pink, no pus draining on inspection R sided deficits/weakness Dx/Plan (1) Colonic obstruction Code(s): K56.609 - UNSP INTESTNL OBST, UNSP TO PARTIAL VERSUS COMPLETE OBST Status: Acute (2) S/P colostomy Code(s): Z93.3 - COLOSTOMY STATUS Status: Acute (3) CHF (congestive heart failure) Code(s): I50.9 - HEART FAILURE, UNSPECIFIED Status: Chronic Qualifiers: Heart failure chronicity: chronic (4) History of CVA (cerebrovascular accident) Code(s): Z86.73 - PRSNL HX OF TIA (TIA), AND CEREB INFRC W/O RESID DEFICITS Status: Chronic (5) Prostate CA Code(s): C61 - MALIGNANT NEOPLASM OF PROSTATE Status: Chronic (6) Intractable vomiting with nausea Code(s): R11.2 - NAUSEA WITH VOMITING, UNSPECIFIED Status: Resolved - Plan Plan: Diverting Sigmoidostomy for High Grade Colon Obstruction likely secondary to Prostate Cancer - GI: flex sig showed high grade obstruction in sigmoid colon that appeared to be extraluminal resulting in diverting sigmoidostomy - Surgery: Dr. Bravo diverting sigmoidostomy 11/24/18, no complications (post op day 4 ), watery brown fluid present in ostomy bag. - Likely will be discharged to rehab 11/30 pending completed paperwork by Bita Jimenez, decision maker. Pt seems to need elevated care from home emergency planning and response manager as he now has new ostomy requring higher level of care ontop of his chronic deficits post CVA. PT/OT evaluated 11/29 and recommend rehab, he remains agreeable to rehab. - GI is fine with pt going to rehab as of 11/29, appreciate recs Prostate Cancer Radiation in 2000 - CT abd/pelvis shows possible signs of distal sigmoid/rectum neoplasm that were present on CT last year, newly found periaortic nodes - Total PSA 62.1, Free PSA 8.39 - Oncololgy consulted: Dr. Rolon spoke with pt about treatment of his recurrent prostate CA, he adamantly refused and does not wish to proceed with any treatment. Contact Bita Jimenez ([phone]), medical decision maker, to discuss further care. Will encourage Bita Pires to involve family with decision. Dysphagia - Hx of esophageal dilation - Speech therapy consult - GI: EGD normal - Barium swallow study performed with no acute findings Chronic diarrhea - resolved - Repeat stool studies were negative for any infectious etiologies - ESR: 21 and TSH: 0.77, so unlikely chronic inflammation or endocrine causes of diarrhea - CT abdomen and pelvis shows bowel wall thickening and pericolonic fat stranding around the sigmoid and rectum, as well as abd LAD significant for possible neoplastic process, discussed with pt - per GI, this change was noted on prior CT last year, newly found was periaortic lymph nodes - Having partially formed stools - GI consulted - flex sig and EGD performed; EGD w/ dilation normla, flex sig showed high grade distal sigmoid obstruction, appreciate rec's - Surgery consulted: performed lap diverting sigmoidotomy , appreciate recs Intractable vomiting with nausea and mild dehydration - resolved - IVF stopped due to good PO fluid intake and mild rales on exam - Was tolerating PO without vomiting since admission - Zofran prn - Megace for appetite stimulation - EGD and Barium swallow nml Hyperbilirubinemia - resolved - Tbili - 1.6 > 1.3 > 1 CHF - Resumed home Torsemide A-fib - Eliquis restarted Hx CVA w/ Aphasia - no new deficits - Eliquis restarted Hypokalemia -mild, resolved Line: Peripheral DVT Prophylaxis: Restarted Eliquis Condition: Stable Code Status: DNAR Diet: Full liquid - advancing as tolerated IVF: None Dispo: Post op day 5, pt does not have a complete understanding of his disease process/burden, medically he is stable and nearing baseline, awaiting confirmed function of ostomy as no stool has been produced in the bag yet, advancing diet as tolerated, CM working on placement, PT recommends rehab, pt agrees. Addendum - Attending - Attending Attestation Date/Time: 11/30/18 4123 I personally evaluated the patient and discussed the management with Dr. Mcmahan. I agree with the History, Examination, Assessment and Plan documented above with any addition or exceptions noted below. Patient medically stable for discharge and has been for 2 days. He is approved to transfer to [facility] for SNF, but now [facility] is desiring possible inpatient rehab. PT did not deem patient to be candidate for inpatient rehab. Will have discussion about placement with [facility] but hope to transfer out today.
[2018-11-30] MEDS: Apixaban 5 MG TAB PO SCH ×2 (08:45→21:25)
[2018-11-30] MEDS: Divalproex Sodium 125 mg Sprinkle Capsule PO SCH ×2 (08:45→21:26)
[2018-11-30] MEDS: Docusate 100 MG CAP PO SCH ×2 (08:45→21:26)
[2018-11-30] MEDS: Megestrol Acetate 40 MG TAB PO SCH ×4 (08:45→21:26)
[2018-11-30] MEDS: Carvedilol 6.25 MG TAB PO SCH ×2 (08:45→17:28)
[2018-11-30] MEDS: Escitalopram Oxalate 10 mg Tablet PO SCH (08:46)
[2018-11-30] MEDS: rOPINIRole HCl 1 MG TAB PO SCH ×2 (08:46→21:22)
[2018-11-30] MEDS: Polyethylene Glycol 3350 17 GM Packet PO SCH (08:46)
[2018-11-30] MEDS: Torsemide 20 MG TAB PO SCH (08:48)
[2018-11-30] MEDS: Atorvastatin Calcium 40 MG TAB PO SCH (21:26)
[2018-11-30] MEDS: traZODone HCl 50 MG TAB PO SCH (21:27)
--- NOTE | 2018-12-01 05:25 | PDOC.FM ---
- Subjective Subjective: Pt is doing well without complaints. He is ready for discharge to rehab facility. - Objective Vital Signs & Weight: Vital Signs (12 hours) Temp Pulse Resp BP BP Pulse Ox 11/30/18 20:00 94 L 11/30/18 19:38 98.4 F 70 16 114/63 94 L 11/30/18 17:28 103/71 Weight Admit Weight 83.007 kg Weight 87.77 kg I&O: 11/29/18 11/30/18 12/01/18 06:59 06:59 06:59 Intake Total 1200 970 Output Total 650 50 Balance 550 920 Result Diagrams: 11/23/18 06:29 11/27/18 04:38 Phys Exam - Physical Examination HEENT: PERRLA, moist MMs Neck: no nodes, no JVD Respiratory: no wheezing, no rhonchi, clear to auscultation bilateral Cardiovascular: RRR, no significant murmur, no rub Gastrointestinal: soft, non-tender, no distention ostomy pink, brown fluid in ostomy bag Dx/Plan (1) Colonic obstruction Code(s): K56.609 - UNSP INTESTNL OBST, UNSP TO PARTIAL VERSUS COMPLETE OBST Status: Acute (2) S/P colostomy Code(s): Z93.3 - COLOSTOMY STATUS Status: Acute (3) CHF (congestive heart failure) Code(s): I50.9 - HEART FAILURE, UNSPECIFIED Status: Chronic Qualifiers: Heart failure chronicity: chronic (4) History of CVA (cerebrovascular accident) Code(s): Z86.73 - PRSNL HX OF TIA (TIA), AND CEREB INFRC W/O RESID DEFICITS Status: Chronic (5) Prostate CA Code(s): C61 - MALIGNANT NEOPLASM OF PROSTATE Status: Chronic (6) Intractable vomiting with nausea Code(s): R11.2 - NAUSEA WITH VOMITING, UNSPECIFIED Status: Resolved - Plan Plan: Diverting Sigmoidostomy for High Grade Colon Obstruction likely secondary to Prostate Cancer - GI: flex sig showed high grade obstruction in sigmoid colon that appeared to be extraluminal resulting in diverting sigmoidostomy - Surgery: Dr. Bravo diverting sigmoidostomy 11/24/18, no complications (post op day 4 ), watery brown fluid present in ostomy bag. - Discharge pending placement, refer to case management notes. Pt seems to need elevated care from home manager budget as he now has new ostomy requiring higher level of care ontop of his chronic deficits post CVA. PT/OT evaluated and recommend rehab, he remains agreeable to rehab. - GI is fine with pt going to rehab as of 11/29, appreciate recs Prostate Cancer Radiation in 2000 - CT abd/pelvis shows possible signs of distal sigmoid/rectum neoplasm that were present on CT last year, newly found periaortic nodes - Total PSA 62.1, Free PSA 8.39 - Oncololgy consulted: Dr. Rolon spoke with pt about treatment of his recurrent prostate CA, he adamantly refused and does not wish to proceed with any treatment. Contact Bita Jimenez ([phone]), medical decision maker, to discuss further care. Will encourage Bita Pires to involve family with decision. Dysphagia - Hx of esophageal dilation - Speech therapy consult - GI: EGD normal - Barium swallow study performed with no acute findings Chronic diarrhea - resolved - Repeat stool studies were negative for any infectious etiologies - ESR: 21 and TSH: 0.77, so unlikely chronic inflammation or endocrine causes of diarrhea - CT abdomen and pelvis shows bowel wall thickening and pericolonic fat stranding around the sigmoid and rectum, as well as abd LAD significant for possible neoplastic process, discussed with pt - per GI, this change was noted on prior CT last year, newly found was periaortic lymph nodes - Having partially formed stools - GI consulted - flex sig and EGD performed; EGD w/ dilation normla, flex sig showed high grade distal sigmoid obstruction, appreciate rec's - Surgery consulted: performed lap diverting sigmoidotomy , appreciate recs Intractable vomiting with nausea and mild dehydration - resolved - IVF stopped due to good PO fluid intake and mild rales on exam - Was tolerating PO without vomiting since admission - Zofran prn - Megace for appetite stimulation - EGD and Barium swallow nml Hyperbilirubinemia - resolved - Tbili - 1.6 > 1.3 > 1 CHF - Resumed home Torsemide A-fib - Eliquis restarted Hx CVA w/ Aphasia - no new deficits - Eliquis restarted Hypokalemia -mild, resolved Line: Peripheral DVT Prophylaxis: Restarted Eliquis Condition: Stable Code Status: DNAR Diet: Full liquid - advancing as tolerated IVF: None Dispo: Post op day 5, pt does not have a complete understanding of his disease process/burden, medically he is stable and nearing baseline, regualr diet, CM working on placement, PT recommends rehab, pt agrees. Addendum - Attending - Attending Attestation Date/Time: 12/01/18 1140 I personally evaluated the patient and discussed the management with Dr. Mcmahan. I agree with the History, Examination, Assessment and Plan documented above with any addition or exceptions noted below. Patient overall stable. No changes today. Awaiting placement decision.
[2018-12-01] MEDS: rOPINIRole HCl 1 MG TAB PO SCH ×2 (09:38→21:52)
[2018-12-01] MEDS: Escitalopram Oxalate 10 mg Tablet PO SCH (09:38)
[2018-12-01] MEDS: Divalproex Sodium 125 mg Sprinkle Capsule PO SCH ×2 (09:38→21:55)
[2018-12-01] MEDS: Megestrol Acetate 40 MG TAB PO SCH ×4 (09:38→21:56)
[2018-12-01] MEDS: Apixaban 5 MG TAB PO SCH ×2 (09:38→21:55)
[2018-12-01] MEDS: Docusate 100 MG CAP PO SCH ×2 (09:39→21:55)
[2018-12-01] MEDS: Carvedilol 6.25 MG TAB PO SCH ×2 (09:39→16:34)
[2018-12-01] MEDS: Torsemide 20 MG TAB PO SCH (09:39)
[2018-12-01] MEDS: Polyethylene Glycol 3350 17 GM Packet PO SCH (09:39)
--- NOTE | 2018-12-01 13:37 | PRG ---
DATE OF SERVICE: 11/29/2018 Mr. Bryan denies any pain or nausea. His colostomy looks healthy and there is gas and liquid stool in the bag. His other incisions are healing well. From a surgical standpoint he is ready for discharge at any time. I will sign off. Please call if there are any issues. He can follow up in my clinic in a couple weeks. Job ID: [id number] MTDD
[2018-12-01] MEDS: traZODone HCl 50 MG TAB PO SCH (21:52)
[2018-12-01] MEDS: Atorvastatin Calcium 40 MG TAB PO SCH (21:55)
--- NOTE | 2018-12-02 05:40 | PDOC.FM ---
- Subjective Subjective: Pt is doing well today without any complaints. He is in high spirits. - Objective Vital Signs & Weight: Vital Signs (12 hours) Temp Pulse Resp BP Pulse Ox 12/01/18 20:00 97 12/01/18 19:04 97.9 F 69 16 111/70 93 L Weight Admit Weight 83.007 kg Weight 87.77 kg I&O: 11/30/18 12/01/18 12/02/18 06:59 06:59 06:59 Intake Total 3297 667 5848 Output Total 650 50 0 Balance 580 380 1160 Result Diagrams: 11/23/18 06:29 11/27/18 04:38 Phys Exam - Physical Examination Constitutional: NAD HEENT: PERRLA, moist MMs Respiratory: clear to auscultation bilateral Cardiovascular: RRR, no significant murmur Gastrointestinal: soft, no distention ostomy patent, pink Musculoskeletal: no edema, pulses present R side weakness, no deficits noted on LUE Psychiatric: normal affect, A&O x 3 Dx/Plan (1) Colonic obstruction Code(s): K56.609 - UNSP INTESTNL OBST, UNSP TO PARTIAL VERSUS COMPLETE OBST Status: Acute (2) S/P colostomy Code(s): Z93.3 - COLOSTOMY STATUS Status: Acute (3) CHF (congestive heart failure) Code(s): I50.9 - HEART FAILURE, UNSPECIFIED Status: Chronic Qualifiers: Heart failure chronicity: chronic (4) History of CVA (cerebrovascular accident) Code(s): Z86.73 - PRSNL HX OF TIA (TIA), AND CEREB INFRC W/O RESID DEFICITS Status: Chronic (5) Prostate CA Code(s): C61 - MALIGNANT NEOPLASM OF PROSTATE Status: Chronic (6) Intractable vomiting with nausea Code(s): R11.2 - NAUSEA WITH VOMITING, UNSPECIFIED Status: Resolved - Plan Plan: Plan: Diverting Sigmoidostomy for High Grade Colon Obstruction likely secondary to Prostate Cancer - GI: flex sig showed high grade obstruction in sigmoid colon that appeared to be extraluminal resulting in diverting sigmoidostomy - Surgery: Dr. Bravo diverting sigmoidostomy 11/24/18, no complications (post op day 4 ), watery brown fluid present in ostomy bag. - Discharge pending placement, refer to case management notes. 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 PT/OT evaluated and recommend rehab, he remains agreeable to rehab. - GI is fine with pt going to rehab as of 11/29, appreciate recs Prostate Cancer Radiation in 2000 - CT abd/pelvis shows possible signs of distal sigmoid/rectum neoplasm that were present on CT last year, newly found periaortic nodes - Total PSA 62.1, Free PSA 8.39 - Oncololgy consulted: Dr. Rolon spoke with pt about treatment of his recurrent prostate CA, he adamantly refused and does not wish to proceed with any treatment. Contact Bita Jimenez ([phone]), medical decision maker, to discuss further care. Will encourage Bita Pires to involve family with decision. Dysphagia - Hx of esophageal dilation - Speech therapy consult - GI: EGD normal - Barium swallow study performed with no acute findings Chronic diarrhea - resolved - Repeat stool studies were negative for any infectious etiologies - ESR: 21 and TSH: 0.77, so unlikely chronic inflammation or endocrine causes of diarrhea - CT abdomen and pelvis shows bowel wall thickening and pericolonic fat stranding around the sigmoid and rectum, as well as abd LAD significant for possible neoplastic process, discussed with pt - per GI, this change was noted on prior CT last year, newly found was periaortic lymph nodes - Having partially formed stools - GI consulted - flex sig and EGD performed; EGD w/ dilation normla, flex sig showed high grade distal sigmoid obstruction, appreciate rec's - Surgery consulted: performed lap diverting sigmoidotomy , appreciate recs Intractable vomiting with nausea and mild dehydration - resolved - IVF stopped due to good PO fluid intake and mild rales on exam - Was tolerating PO without vomiting since admission - Zofran prn - Megace for appetite stimulation - EGD and Barium swallow nml Hyperbilirubinemia - resolved - Tbili - 1.6 > 1.3 > 1 CHF - Resumed home Torsemide A-fib - Eliquis restarted Hx CVA w/ Aphasia - no new deficits - Eliquis restarted Hypokalemia -mild, resolved Line: Peripheral DVT Prophylaxis: Restarted Eliquis Condition: Stable Code Status: DNAR Diet: Full liquid - advancing as tolerated IVF: None Dispo: Post op day 5, pt does not have a complete understanding of his disease process/burden, medically he is stable and nearing baseline, regualr diet, CM working on placement, PT recommends rehab, pt agrees. Addendum - Attending - Attending Attestation Date/Time: 12/02/18 6041 I personally evaluated the patient and discussed the management with Dr. Mcmahan. I agree with the History, Examination, Assessment and Plan documented above with any addition or exceptions noted below. Patient doing well. Awaiting placement decision. Stable for discharge.
[2018-12-02] MEDS: Megestrol Acetate 40 MG TAB PO SCH ×4 (08:48→22:21)
[2018-12-02] MEDS: Carvedilol 6.25 MG TAB PO SCH ×2 (08:49→18:37)
[2018-12-02] MEDS: Escitalopram Oxalate 10 mg Tablet PO SCH (08:49)
[2018-12-02] MEDS: Docusate 100 MG CAP PO SCH ×2 (08:49→22:21)
[2018-12-02] MEDS: Divalproex Sodium 125 mg Sprinkle Capsule PO SCH ×2 (08:49→22:21)
[2018-12-02] MEDS: rOPINIRole HCl 1 MG TAB PO SCH ×2 (08:50→22:22)
[2018-12-02] MEDS: Polyethylene Glycol 3350 17 GM Packet PO SCH (08:50)
[2018-12-02] MEDS: Torsemide 20 MG TAB PO SCH (08:50)
[2018-12-02] MEDS: Apixaban 5 MG TAB PO SCH ×2 (08:51→22:20)
[2018-12-02] MEDS: Atorvastatin Calcium 40 MG TAB PO SCH (22:20)
[2018-12-02] MEDS: traZODone HCl 50 MG TAB PO SCH (22:22)
--- NOTE | 2018-12-03 05:26 | PDOC.FM ---
- Subjective Subjective: Doing well today without any complaints. He is hopeful for discharge to facility today. - Objective Vital Signs & Weight: Vital Signs (12 hours) Temp Pulse Resp BP Pulse Ox 12/02/18 20:00 96 12/02/18 19:55 97.8 F 80 18 109/64 95 Weight Admit Weight 83.007 kg Weight 87.77 kg I&O: 12/01/18 12/02/18 12/03/18 06:59 06:59 06:59 Intake Total 970 1000 Output Total 50 0 Balance 920 1000 Result Diagrams: 11/23/18 06:29 11/27/18 04:38 Phys Exam - Physical Examination Constitutional: NAD HEENT: PERRLA, moist MMs Respiratory: no wheezing, no rales, clear to auscultation bilateral Cardiovascular: RRR, no significant murmur Gastrointestinal: soft, non-tender, no distention ostomy is pink, stool colored discharge in bag Psychiatric: normal affect, A&O x 3 Dx/Plan (1) Colonic obstruction Code(s): K56.609 - UNSP INTESTNL OBST, UNSP TO PARTIAL VERSUS COMPLETE OBST Status: Acute (2) S/P colostomy Code(s): Z93.3 - COLOSTOMY STATUS Status: Acute (3) CHF (congestive heart failure) Code(s): I50.9 - HEART FAILURE, UNSPECIFIED Status: Chronic Qualifiers: Heart failure chronicity: chronic (4) History of CVA (cerebrovascular accident) Code(s): Z86.73 - PRSNL HX OF TIA (TIA), AND CEREB INFRC W/O RESID DEFICITS Status: Chronic (5) Prostate CA Code(s): C61 - MALIGNANT NEOPLASM OF PROSTATE Status: Chronic (6) Intractable vomiting with nausea Code(s): R11.2 - NAUSEA WITH VOMITING, UNSPECIFIED Status: Resolved - Plan Plan: Diverting Sigmoidostomy for High Grade Colon Obstruction likely secondary to Prostate Cancer - GI: flex sig showed high grade obstruction in sigmoid colon that appeared to be extraluminal resulting in diverting sigmoidostomy - Surgery: Dr. Bravo diverting sigmoidostomy 11/24/18, no complications (post op day 4 ), watery brown fluid present in ostomy bag. - Discharge pending placement, refer to case management notes - will likely be . 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 PT/OT evaluated 11/29 and recommend rehab, he remains agreeable to rehab. - GI is fine with pt going to rehab as of 11/29, appreciate recs Prostate Cancer Radiation in 2000 - CT abd/pelvis shows possible signs of distal sigmoid/rectum neoplasm that were present on CT last year, newly found periaortic nodes - Total PSA 62.1, Free PSA 8.39 - Oncololgy consulted: Dr. Rolon spoke with pt about treatment of his recurrent prostate CA, he adamantly refused and does not wish to proceed with any treatment. Contact Bita Jimenez ([phone]), medical decision maker, to discuss further care. Will encourage Bita Pires to involve family with decision. Dysphagia - Hx of esophageal dilation - Speech therapy consult - GI: EGD normal - Barium swallow study performed with no acute findings Chronic diarrhea - resolved - Repeat stool studies were negative for any infectious etiologies - ESR: 21 and TSH: 0.77, so unlikely chronic inflammation or endocrine causes of diarrhea - CT abdomen and pelvis shows bowel wall thickening and pericolonic fat stranding around the sigmoid and rectum, as well as abd LAD significant for possible neoplastic process, discussed with pt - per GI, this change was noted on prior CT last year, newly found was periaortic lymph nodes - Having partially formed stools - GI consulted - flex sig and EGD performed; EGD w/ dilation normla, flex sig showed high grade distal sigmoid obstruction, appreciate rec's - Surgery consulted: performed lap diverting sigmoidotomy , appreciate recs Intractable vomiting with nausea and mild dehydration - resolved - IVF stopped due to good PO fluid intake and mild rales on exam - Was tolerating PO without vomiting since admission - Zofran prn - Megace for appetite stimulation - EGD and Barium swallow nml Hyperbilirubinemia - resolved - Tbili - 1.6 > 1.3 > 1 CHF - Resumed home Torsemide A-fib - Eliquis restarted Hx CVA w/ Aphasia - no new deficits - Eliquis restarted Hypokalemia -mild, resolved Line: Peripheral DVT Prophylaxis: Restarted Eliquis Condition: Stable Code Status: DNAR Diet: Full liquid - advancing as tolerated IVF: None Dispo: Post op day 5, pt does not have a complete understanding of his disease process/burden, medically he is stable and nearing baseline, regualr diet, CM working on placement, PT recommends rehab, pt agrees. Addendum - Attending - Attending Attestation Date/Time: 12/03/18 4441 I personally evaluated the patient and discussed the management with Dr. Mcmahan. I agree with the History, Examination, Assessment and Plan documented above with any addition or exceptions noted below. Patient doing well. Should be able to transfer to rehab facility today.
[2018-12-03] MEDS: rOPINIRole HCl 1 MG TAB PO SCH (08:52)
[2018-12-03] MEDS: Divalproex Sodium 125 mg Sprinkle Capsule PO SCH (08:52)
[2018-12-03] MEDS: Apixaban 5 MG TAB PO SCH (08:52)
[2018-12-03] MEDS: Torsemide 20 MG TAB PO SCH (08:53)
[2018-12-03] MEDS: Polyethylene Glycol 3350 17 GM Packet PO SCH (08:54)
[2018-12-03] MEDS: Escitalopram Oxalate 10 mg Tablet PO SCH (08:54)
[2018-12-03] MEDS: Megestrol Acetate 40 MG TAB PO SCH ×2 (08:55→13:00)
[2018-12-03] MEDS: Docusate 100 MG CAP PO SCH (08:55)
[2018-12-03] MEDS: Carvedilol 6.25 MG TAB PO SCH (08:55)
[2018-12-03 09:12] VITALS: BP 104/57; TEMP 98.5
--- NOTE | 2018-12-05 14:07 | DIS ---
DATE OF ADMISSION: 11/18/2018 DATE OF DISCHARGE: 12/03/2018 RESIDENT: Natan Mcmahan DO CONSULTS: 1. Gastroenterology, Marvin Parikh MD. 2. General Surgery, Yo Bravo MD. 3. Oncology, Rodriguez Acuna MD. PROCEDURES: 1. Esophagogastroduodenoscopy and dilation with flexible sigmoidoscopy. 2. Diverting sigmoidostomy. PRIMARY DIAGNOSES: 1. Colonic obstruction requiring diverting sigmoidoscopy for a high-grade likely secondary to prostate cancer. 2. Congestive heart failure. 3. History of cerebrovascular accident. 4. Prostate cancer. 5. Dysphagia. 6. Hypokalemia. DISCHARGE MEDICATIONS: 1. Zinc oxide . 2. Trazodone 50 mg p.o. at bedtime. 3. Torsemide 20 mg p.o. daily. 4. Ropinirole 1 mg p.o. b.i.d. 5. Ranitidine 150 mg p.o. b.i.d. 6. Escitalopram 10 mg p.o. q.a.m. 7. Depakote 125 mg p.o. b.i.d. 8. Carvedilol 6.25 mg p.o. b.i.d. 9. Apixaban 5 mg p.o. b.i.d. 10. Atorvastatin 40 mg p.o. at bedtime. 11. Megace 40 mg p.o. q.i.d. 12. Zofran 4 mg q.6 p.r.n. 13. Protonix 40 mg p.o. b.i.d. 14. MiraLAX 17 g p.o. daily. DISCHARGE MEDICATIONS: 1. Omeprazole 10 mg p.o. daily. 2. Metronidazole 500 mg p.o. t.i.d. HISTORY OF PRESENT ILLNESS/HOSPITAL COURSE: Mr. Bryan is a 68-year-old male with history of aphasia secondary to CVA in 2012. He was a direct admit from [facility] GI office for 30 days of nausea, vomiting, diarrhea. The patient had been in the ED 3 times for the same symptoms with intermittent abdominal pain. Other than mild dehydration, the workup was apparently negative. The patient's stools began to be very foul smelling and noted blood as well. At this time, he had decreased p.o. intake. He initially was worked up with stool ova and parasites, stool cultures and fecal lactoferrin, which were negative. Before this, Dr. Parikh was consulted with Gastroenterology. At this time, he recommended a CT abdomen and pelvis, which revealed bowel wall thickening with pericolonic fat stranding involving the distal sigmoid colon and rectum. There was evidence of lymphadenopathy. Colonoscopy was recommended. GI then proceeded with an EGD and flexible sigmoidoscopy to further assess the processes going on, but it was thought that potentially this was coming from the known prostate cancer. At the same time, Dr. Lillian Bolton with Oncology was consulted to discuss the recurrence of his prostate cancer. Treatment was suggested with Pema, but the patient refused any treatment and refused warning to recognize that he had return of prostate cancer. EGD and flexible sigmoidoscopy revealed the need for diverting colostomy as the patient did not want to proceed with any treatment for prostate cancer. General Surgery, Dr. Bravo was consulted at this time, who performed a diverting sigmoidoscopy. He tolerated the treatment well and his ostomy regained function during his stay. He had no signs of infection throughout this stay. He worked with Physical Therapy and Occupational therapy who felt that he needed rehab due to his CVA and new ostomy bag. He was clear to be taken at [facility] for intensive inpatient rehab. The patient will do well with this rehab as long as he continues to want to work with the physical therapist. Mr. Bryan is a very pleasant man to speak with. There was some concern of how much decision-making he was able to do. He seemed to be engaged in much of his care, but at times would neglect other portions such as his prostate cancer. I encouraged him and his family to continue to make decisions alongside the medical [id number]. DISPOSITION: Stable. DISCHARGE INSTRUCTIONS: 1. Location: [facility]. 2. Diet: Heart healthy. 3. Activity: Per recommendation of PT, OT. 4. Followup: Follow up with;. a. Dr. Endy Sue, primary care provider in [address] Yo Bravo. Job ID: [id number]
== END 2018-12-03 16:53 | DRG 982 ==
LOC: ONC 11:00
PROVIDERS: ADMIT Family Medicine; ATTEND Family Medicine
PROC: 0D758ZZ Dilation of Esophagus, Via Natural or Artificial Opening Endoscopic (ICD-10-PCS; 2018-11-23)
PROC: 0DJD8ZZ Inspection of Lower Intestinal Tract, Via Natural or Artificial Opening Endoscopic (ICD-10-PCS; 2018-11-23)
PROC: 0D1N4Z4 Bypass Sigmoid Colon to Cutaneous, Percutaneous Endoscopic Approach (ICD-10-PCS; principal; 2018-11-24)
DX: C61 Malignant neoplasm of prostate (principal); I42.8 Other cardiomyopathies; I69.351 Hemiplegia and hemiparesis following cerebral infarction affecting right dominant side; Z66 Do not resuscitate; K52.9 Noninfective gastroenteritis and colitis, unspecified; I50.9 Heart failure, unspecified; I48.91 Unspecified atrial fibrillation; G47.33 Obstructive sleep apnea (adult) (pediatric); G25.81 Restless legs syndrome; K57.90 Diverticulosis of intestine, part unspecified, without perforation or abscess without bleeding; E87.6 Hypokalemia; E86.0 Dehydration; R13.12 Dysphagia, oropharyngeal phase; E80.6 Other disorders of bilirubin metabolism; I11.0 Hypertensive heart disease with heart failure; I69.391 Dysphagia following cerebral infarction; Z95.0 Presence of cardiac pacemaker; I69.320 Aphasia following cerebral infarction; Z91.041 Radiographic dye allergy status; Z79.899 Other long term (current) drug therapy; Z79.01 Long term (current) use of anticoagulants
CPT/HCPCS: 36415; 36416; 74178; 74230; 80048; 80053; 82705; 83630; 83690; 83735; 84100; 84153; 84154; 84443; 85025; 85652; 86140; 87045; 87046; 87324; 87328; 87329; 87427; 87449; C9113; J0670; J0694; J1100; J2001; J2270; J2405; J2704; J3010; J3490; Q0163; S0179

== ENCOUNTER 2018-12-24 02:59 | Emergency (ER) | payer MEDICARE | END 2018-12-24 04:53 | disposition home or self-care (01) | LOC: ERS 02:59 | DX: Z43.3 Encounter for attention to colostomy (principal); Z79.899 Other long term (current) drug therapy; Z79.01 Long term (current) use of anticoagulants | CPT/HCPCS: 99282 ==

== ENCOUNTER 2019-01-12 16:25 | Emergency (ER) | payer MEDICARE ==
[2019-01-12] MEDS ORDERED: HYDROcodone/Acetaminophen 5/325 mg Tablet ONE (17:29)
== END 2019-01-12 17:25 | disposition home or self-care (01) ==
LOC: SCSER 16:25
DX: K04.4 Acute apical periodontitis of pulpal origin (principal); Z86.73 Personal history of transient ischemic attack (TIA), and cerebral infarction without residual deficits
CPT/HCPCS: 99282

== ENCOUNTER 2019-05-21 11:50 | Inpatient (IN) | payer MEDICARE ==
[2019-05-21 12:33] LABS: #Eosinphils 0.3 thou/uL (0.0-0.7); #Lymphocytes 0.6 thou/uL (1.20-3.40); #Monocytes 0.9 thou/uL (0.11-0.59); #Neutrophils 7.4 thou/uL (1.40-6.50); %Eosinophils 3.3 % (0.0-10.0); %Lymphocytes 6.8 % (21.0-51.0); %Monocytes 9.3 % (0.0-10.0); %Neutrophils 80.6 % (42.0-75.0); Hemoglobin 9.9 g/dL (14.0-18.0); Mean Corpuscular HGB CONC 32.4 g/dL (32.0-36.0); Mean Corpuscular Hemoglobin 29.6 pg (27.0-31.0); Mean Corpuscular Volume 91.4 fL (78.0-98.0); Platelet Count 264 thou/uL (130-400); RBC Distribution Width 15.2 % (11.5-14.5); Red Blood Cell (RBC) Count 3.36 mill/uL (4.70-6.10); White Blood Cell (WBC) Count 9.2 thou/uL (4.8-10.8)
--- NOTE | 2019-05-21 12:35 | RAD ---
Exam: Chest one view portable HISTORY: Chest pain, nonverbal from a stroke COMPARISON: 11/14/2018 FINDINGS: Moderate rotation to the right. Left ICD. Increased bronchovascular markings bilaterally probably sta ble. No new confluent lobar pneumonia, pleural effusion or other acute process. IMPRESSION: Overall stable chest with some increased bronchovascular markings bilaterally.
[2019-05-21 12:40] LABS: INR-International Normal Ratio 1.3; Prothrombin Time 16.4 SEC (12.0-14.7)
[2019-05-21 12:48] LABS: ALT (SGPT) Less than 7 U/L (8-55); AST (SGOT) 8 U/L (5-34); Albumin 3.8 g/dL (3.4-4.8); Alkaline Phosphatase 80 U/L (40-110); Anion Gap 30 mmol/L (10-20); Bilirubin, Total 1.1 mg/dL (0.2-1.2); Calcium 8.9 mg/dL (7.8-10.44); Carbon Dioxide 12 mmol/L (23-31); Chloride 99 mmol/L (98-107); Globulin 3.7 g/dL (2.4-3.5); Glucose 101 mg/dL (80-115); Lipase 85 U/L (8-78); Potassium 4.8 mmol/L (3.5-5.1); Protein, Total 7.5 g/dL (5.8-8.1); Sodium 136 mmol/L (136-145)
[2019-05-21 12:56] LABS: Calc. Creatinine Clearance 0 mL/min (70-130); Estimated GFR-MDRD 2
[2019-05-21 12:59] LABS: BUN (Urea Nitrogen) 162 mg/dL (8.4-25.7)
[2019-05-21 13:17] LABS: CKMB 10.3 ng/mL (0-6.6)
[2019-05-21 13:27] LABS: Bilirubin Negative (Negative); Blood, Urine 1+ (Negative); Clarity Clear (Clear); Glucose, Urine (Dipstick) Normal (Negative); Leukocyte 250 Leu/uL (Negative); Nitrite Negative (Negative); Protein, Urine (Dipstick) 10 mg/dL (Neg-Trace); Squamous Epithelial None Seen HPF (0-3); Urobilinogen Normal mg/dL (Less than 2)
[2019-05-21 13:28] LABS: Bacteria/HPF 1+ HPF (None Seen)
--- NOTE | 2019-05-21 13:39 | CT ---
CT BRAIN NONCONTRAST: DATE: 05/21/2019 HISTORY: 68-year-old male with altered mental status COMPARISON: 12/13/2017 FINDINGS: There is no evidence of acute intra-axial or extra-axial hemorrhage. There is no midline shift or any other mass effect. There is no extra-axial fluid collection. There is no evidence of obstructive hydrocephalus. Calvarium is intact. Large region of encephalomalacia and gliosis involving left tempo ral lobe, parietal lobe, all of left basal ganglia, and left caudate body. Moderate size region of encephalomalacia and gliosis involving right temporal lobe. No interval change. IMPRESSION: 1. No acute intracranial findings. 2. Bilateral middle cerebral artery territory old infarctions.
--- NOTE | 2019-05-21 14:01 | CT ---
EXAM: Abdomen and pelvic CT scan without contrast: HISTORY: Obstructive uropathy. History of colon cancer COMPARISON: 11/19/2018 FINDINGS: Minimal nonspecific linear stranding in the lung bases. Cardiomegaly. Liver: Unremarkable. Gallbladder:Multiple gallstones without evidence for acute cholecystitis. Pancreas:Unremarkable Spleen:Unremarkable. Adrenal glands:Unremarkable. Kidneys:Marked bilateral renal hydronephrosis with dilatation of the upper collecting systems and ure ters down to the upper pelvis level. No solid or cystic renal mass. No evidence for bowel obstruction. Sigmoid colon diverticulosis without acute diverticulitis. No CT evidence for acute appendicitis. The urinary bladder is minimally displaced by extensive pelvic adenopathy with some minimal focal thi ckening within the left side of the bladder possibly representing neoplastic change given adjacent extensive pelvic adenopathy as well as a huge adjacent rectal mass evidence for known rectal cancer. Reproductive system:Unremarkable Very extensive pelvic, iliac, and retroperitoneal adenopathy from known rectal cancer. Left-sided colostomy. IMPRESSION: Marked bilateral renal hydroureteronephrosis secondary to obstruction at the level pelvis from huge p elvic adenopathy. Huge rectal mass evidence for known rectal cancer. Mass involving the left side of the bladder worrisome for neoplastic involvement.
[2019-05-21] MEDS ORDERED: cefTRIAXone\\ROCEPHIN 1 GM VIAL ONE (15:38)
[2019-05-21] MEDS ORDERED: Bacitracin 1 PK ONE (15:38)
[2019-05-21 16:18] LABS: Critical Call Chem Troponin I RESULT DECREASING; Troponin I 0.398 ng/mL (< 0.028)
[2019-05-21] MEDS ORDERED: Morphine 4 MG/ML VIAL ONE (16:19)
[2019-05-21] MEDS ORDERED: HYDROcodone/Acetaminophen 5/325 mg Tablet ONE (16:22)
[2019-05-21] MEDS ORDERED: Acetaminophen/Codeine 30-300mg Tablet ONE (17:00)
[2019-05-21] MEDS ORDERED: Sodium Bicarbonate 150 MEQ in Dextrose 5% in Water 1,000 ML IV SCH (19:30)
[2019-05-21 19:35] LABS: Troponin I 0.407 ng/mL (< 0.028)
[2019-05-21] MEDS ORDERED: Senokot S 8.6-50 MG TAB PO PRN (20:10)
--- NOTE | 2019-05-22 00:29 | CON ---
DATE OF CONSULTATION: 05/21/2019 SERVICE: Nephrology. REASON FOR CONSULTATION: Acute renal failure. REQUESTING PHYSICIAN: Chris Baldwin DO HISTORY OF PRESENT ILLNESS: A 68-year-old male, [facility] resident, with known history of prior CVA associated with dysarthria, metastatic prostate cancer associated with extension to the rectum, causing diarrhea, status post colostomy, who was brought in this morning by EMS at the request of the patient due to urinary incontinence. The patient who declined further cancer treatment as well as aggressive measures, and also hospice, was brought in for evaluation of urinary incontinence. Of note, the patient reportedly was noted to have been going down progressively, but refused to come to the hospital. In the last 2 weeks, it was reported that he has some bleeding from his colostomy and also been having difficulty urinating, but declined recommendation to go to hospital up until today when he requested to be brought to the hospital. The patient is nonverbal. Most of the history was obtained from review of medical record and talking with ex- who is present in the room. Further evaluation in the ER showed bilateral hydronephrosis as well as creatinine of more than 25. The patient received some IV fluid and was subsequently admitted for further evaluation. Of note, with passage of Kolb catheter, good amount of urine was obtained, consistent with urinary retention. PAST MEDICAL HISTORY: 1. Prostate cancer. 2. Atrial fibrillation. 3. Cardiomyopathy. 4. Prior cerebrovascular accident with right-sided hemiparesis. 5. Congestive heart failure. 6. Obstructive sleep apnea. 7. Diverticulitis. PAST SURGICAL HISTORY: 1. Ankle surgery. 2. Esophageal dilatation. 3. Colostomy. FAMILY HISTORY: Unable to obtain due to the patient's condition. SOCIAL HISTORY: The patient currently lives in a [facility] and has a caregiver. He also has a legal guardian. ALLERGIES: THE FOLLOWING ARE REPORTED. IODINE AND IODINE CONTAINING PRODUCTS. MEDICATIONS: Prior to hospital medications, 1. Lipitor 40 mg daily. 2. Proctosol one application rectally 4 times a day. 3. Carvedilol 6.25 b.i.d. 4. Divalproex 125 mg b.i.d. 5. Eliquis 5 mg p.o. b.i.d. 6. Omeprazole 40 mg daily. 7. Torsemide 20 mg daily. 8. Trazodone 50 mg p.o. daily. REVIEW OF SYSTEMS: Could not be obtained due to the patient's condition. PHYSICAL EXAMINATION: VITAL SIGNS: Blood pressure 140/74, pulse 85, respiratory rate 17, SpO2 of 99% on room air, and temperature is 98.3. GENERAL: Chronically ill-looking elderly male, in no obvious distress. Afebrile. HEENT: Normocephalic, atraumatic. Oral mucosa is dry. NECK: No JVD appreciated. CARDIOVASCULAR: Irregular rhythm and rate with normal heart sounds 1 and 2. RESPIRATORY: Fair air entry bilaterally with a few transmitted breath sounds. No obvious crackle or rhonchi was appreciated. GI: Flat, soft, nondistended with hypoactive bowel sounds. UROGENITAL: Kolb catheter is in place, draining urine. EXTREMITIES: Diffuse muscular atrophy noted as well as mild contracture of right upper limb. No edema or erythema appreciated. VOCATIONAL CASE MANAGER: The patient is awake. Moves upper body and limbs spontaneously. The patient however is nonverbal. DIAGNOSTIC DATA: CBC showed WBC count of 9.2, hemoglobin of 9.9, MCV of 91.4, and platelets of 264. Coagulation panel showed PT 16.4, INR 1.3. CMP showed sodium 136, potassium 4.8, chloride 99, CO2 of 12, anion gap 13, BUN 162, creatinine more than 25, glucose 101, calcium 8.9, total bilirubin 1.1, AST 8, ALT less than 7, alkaline phosphatase 80, total protein 7.5, albumin 3.8, and globulin 3.7. Lipase is 85. Initial cardiac markers showed CK-MB 10.3, troponin 0.443, and BNP of 1258. Urinalysis showed light yellow clear urine with pH of 5.5, specific gravity of 1.012, urine protein 10, glucose normal, ketone negative, 1+ bacteria, negative nitrite, bilirubin, and urobilinogen. Leukocyte esterase was positive at 250. Microscopy showed rbc's 11 to 20, wbc 11 to 20. ASSESSMENT: 1. Acute renal failure: Due to obstructive uropathy and volume depletion. 2. Acute urinary retention with bilateral hydronephrosis. 3. Obstructive uropathy with anticipated postobstructive diuresis. 4. Metastatic prostate cancer. 5. Status post colostomy. 6. Metabolic acidosis. PLAN: 1. I had a discussion with ex- about care plan and care goals. Ex- seems to be inclined to ask to palliative care and comfort care only. However, at this point, it is unclear who has durable power of estate planning attorney. I will start the patient on sodium bicarbonate infusion given severe metabolic acidosis. 2. The patient is status post Kolb catheter placement with adequate diuresis. 3. Urology consult was recommended. 4. However, since the patient declined aggressive therapy for his cancer previously, I think he will be best served with hospice care. We recommend consultation of Palliative Care. We will recheck renal function test in the morning. Further treatment to follow depending on hospital course. Job ID: [id number]
--- NOTE | 2019-05-22 02:29 | HP ---
PRIMARY CARE PHYSICIAN: Endy Sue MD CHIEF COMPLAINT: Mental status changes. HISTORY OF PRESENT ILLNESS: Mr. Bryan is a very unfortunate 68-year-old man, who reports to the emergency room today with evaluation of altered mental status. EMS reports that he was also incontinent today, which is new for him. He lives independently at [facility] and has caretakers, who help take care of him. They report his last seen normal was yesterday. He has restless legs syndrome and is several years out from a debilitating stroke on the right side, which left him contracted and lost his ability to speak. He does use a white board for communication. He also has a history of prostate cancer, which has metastasized. Several years ago, he underwent a partial colectomy and has a colostomy after developing blockage, but has refused any medication treatment for this cancer. He does have several medications. Family reports that as he is independent living, he is not very compliant with his medication. They are unsure of exactly what he takes and how often. He has an interesting family, dynamic son was in the room. Ex- was also in the room with the patient. Son reports that she got a court over medical power of claims attorney. The patient has medical power of claims attorney through a third green party with a government agency. They were working on an [id number] DNR, but he is not sure if that has been signed and . Son reports that he has emailed medical power of claims attorney evidently, who typically works Wednesday through Wednesday to see about paperwork and the patient's wishes. During evaluation in the emergency room today, he was found to have an obstructing rectal mass that was pressing on the bladder and causing some obstruction. ER was able to place a urinary catheter and patient did have a flow. He does have some obstructive hydronephrosis and also some uremia. Lab work pertinent for carbon dioxide 12, gap is 30, BUN is 162, creatinine is greater than 25. CK-MB is 10.3. Troponins have all been positive at 0.4, 0.39, and 0.4. BNP 1358, globulin 3.7. Lipase is 85. PT 16.4. Hemoglobin 9.9, hematocrit 30.7, and platelet count 264. Urine positive for blood, leukocyte esterase, red blood cell, white blood cell, 1+ bacteria. This has been sent off for culture. The patient was given a dose of Rocephin in the emergency room for the UTI and was given fluids. CT impression, there is marked bilateral renal hydroureteronephrosis secondary to obstruction at the level of the pelvis from huge pelvic adenopathy, huge rectal mass evidence for known rectal cancer, mass involving the left side of the bladder, worrisome for neoplastic involvement. The patient was given one Tylenol No.3, Rocephin 1 g, LR at 500 mL as a bolus, sodium chloride [address] Valencia, forestry biology specialist, was contacted from the emergency room. He has placed the patient on sodium bicarbonate 125 mL per hour. The patient will be admitted to the telemetry unit for further management. REVIEW OF SYSTEMS: The patient reports some incontinence, which started today; urinary frequency; dysuria; urinary retention; mental status changes. He denies headache. All systems are reviewed and are negative unless mentioned in the HPI or in the review of systems. PAST MEDICAL HISTORY: Has a pacemaker, had a CVA with right-sided weakness, he is nonverbal at his baseline; has metastatic prostate cancer, refusing treatment; history of atrial fibrillation, is on Eliquis. Family reports that he is noncompliant with his medication, takes what he wants when he wants to. PAST SURGICAL HISTORY: Had a colostomy placed. PSYCHIATRIC HISTORY: None. SOCIAL HISTORY: Denies any alcohol or drug use. Has no smoking history. CODE STATUS: The patient for now is a full code. Family is working with the patient's medical power of claims attorney, who is with [facility] to come up to the hospital to help them navigate his wishes. KNOWN ALLERGIES: Iodine, soap. MEDICATIONS: Current medications which still need to be verified. 1. Proctosol HC one application per rectal four times a day. 2. Atorvastatin 40 mg p.o. once a day. 3. Carvedilol 6.25 mg b.i.d. 4. Divalproex 125 mg p.o. b.i.d. 5. Eliquis 5 mg p.o. b.i.d. 6. Prilosec 40 mg p.o. once a day. 7. Torsemide 20 mg once a day. 8. Trazodone 50 mg p.o. once a day. PHYSICAL EXAMINATION: VITAL SIGNS: Blood pressure 157/80, pulse is 84, respiratory rate is 16, PO2 saturations are 98% on room air. CONSTITUTIONAL: The patient appears nontoxic. He is alert and oriented to person. He is nonverbal. HEENT: Head is atraumatic and normocephalic. Eyes; pupils are equal, round, and reactive to light. Extraocular muscles are intact. ENT; mouth exam is normal. Mucous membranes are moist. NECK: Normal range of motion. Trachea is midline. RESPIRATORY: Chest breath sounds are clear. Chest expansion is equal. CARDIOVASCULAR: Regular rate and rhythm. Heart sounds are normal. ABDOMEN: Nontender. He has a colostomy present to the left lower quadrant. Stoma appears intact. There is no redness or warmth. BACK: No tenderness. Normal inspection. EXTREMITIES: Upper extremity; normal range of motion. Radial pulses are normal. He has chronic contracture to the right side. He cannot flex or extend right arm. Lower extremity sensation is intact. Pedal pulses are normal. Can flex and extend. The left foot is contracted on the right. NEUROLOGIC: Speech is absent. The patient is oriented to person and place. SKIN: Warm, dry, and normal in color. PSYCHIATRIC: Normal affect. LABORATORY DATA: EKG in the emergency room shows normal sinus rhythm, frequent premature ventricular complexes, prolonged QT. PLAN/ASSESSMENT: 1. Metastatic prostate: Mass pressing on bladder, acute renal failure, uremia, elevated troponin. Dr. Valencia, Nephrology has been consulted. He has placed IV, order with bicarb. We have also asked Dr. Hahn, Urology to consult. Dr. Wright has seen the patient as an outpatient. We have asked him to consult. 2. The patient with history of congestive heart failure. We will continue home medications. Dr. Wright has been consulted. 3. History of atrial fibrillation, is on Eliquis. We will hold that for now. We would appreciate Dr. Wright's recommendations. 4. 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 We have asked Palliative Care to help and sort out the patient's wishes with medical power of claims attorney. The patient is uremic, altered mental status, to help will be appreciated. 5. Urinary tract infection. The patient was given Rocephin in the emergency room. We will continue daily culture. Urine culture has been sent. 6. The patient with some residual deficits from cerebrovascular accident. We have asked OT/PT to evaluate. 7. The patient discussed with Dr. Hassan, who agrees with plan. 8. Gastrointestinal prophylaxis started, deep venous thrombosis with SCDs as tolerated. 9. We have added a Case Management consult to help with placement on discharge. The patient is currently living independently. 10. Hospital course dependent on clinical findings. Job ID: [id number]
[2019-05-22] MEDS: Famotidine 20 MG TAB PO SCH ×3 (03:33→21:10)
[2019-05-22 04:46] LABS: #Eosinphils 0.4 thou/uL (0.0-0.7); #Lymphocytes 0.6 thou/uL (1.20-3.40); #Monocytes 0.8 thou/uL (0.11-0.59); #Neutrophils 6.4 thou/uL (1.40-6.50); %Basophils 0.4 % (0.0-1.0); %Eosinophils 4.7 % (0.0-10.0); %Lymphocytes 7.1 % (21.0-51.0); %Monocytes 9.3 % (0.0-10.0); %Neutrophils 78.5 % (42.0-75.0); Hemoglobin 9.3 g/dL (14.0-18.0); Mean Corpuscular HGB CONC 33.2 g/dL (32.0-36.0); Mean Corpuscular Hemoglobin 29.7 pg (27.0-31.0); Mean Corpuscular Volume 89.4 fL (78.0-98.0); Platelet Count 245 thou/uL (130-400); RBC Distribution Width 15.2 % (11.5-14.5); Red Blood Cell (RBC) Count 3.12 mill/uL (4.70-6.10); White Blood Cell (WBC) Count 8.1 thou/uL (4.8-10.8)
[2019-05-22] MEDS: Acetaminophen 325 MG TAB PO PRN ×2 (04:56→11:16)
[2019-05-22 05:08] LABS: ALT (SGPT) Less than 7 U/L (8-55); AST (SGOT) 9 U/L (5-34); Albumin 3.4 g/dL (3.4-4.8); Alkaline Phosphatase 69 U/L (40-110); Anion Gap 27 mmol/L (10-20); Bilirubin, Total 0.9 mg/dL (0.2-1.2); Calcium 8.4 mg/dL (7.8-10.44); Carbon Dioxide 16 mmol/L (23-31); Chloride 97 mmol/L (98-107); Globulin 3.2 g/dL (2.4-3.5); Glucose 111 mg/dL (80-115); Potassium 4.3 mmol/L (3.5-5.1); Protein, Total 6.6 g/dL (5.8-8.1); Sodium 136 mmol/L (136-145)
[2019-05-22 05:13] LABS: Calc. Creatinine Clearance 3 mL/min (70-130); Estimated GFR-MDRD 2
[2019-05-22 05:19] LABS: BUN (Urea Nitrogen) 158 mg/dL (8.4-25.7)
[2019-05-22] MEDS ORDERED: FLU VACC TS2019-20(65YR UP)/PF 180 MCG/0.5 ML SYRINGE IM ONE (09:00)
--- NOTE | 2019-05-22 09:38 | CON ---
DATE OF CONSULTATION: 05/22/2019 REASON FOR CONSULTATION: [id number] myocardial infarction. HISTORY OF PRESENT ILLNESS: Mr. Bryan is a 68-year-old gentleman with history of previous stroke with expressive aphasia, coronary artery disease, previous pacemaker insertion, now admitted with acute renal failure, also has metastatic prostate cancer. Mr. Bryan is nonverbal, therefore the information is obtained from the previous notes and chart. Mr. Bryan was brought to the emergency room yesterday with altered mental status. The patient is also found to be incontinent. It was known that the patient had metastatic prostate cancer and apparently the decision was made to treat conservatively. The patient had an obstructing rectal mass. It was pressing on his bladder, causing some obstruction. A urinary catheter was placed. His creatinine is over 25. Troponins were elevated at 0.4. The patient has received normal saline. He is not having chest pain or pressure. REVIEW OF SYSTEMS: Not really accurate because he has expressive aphasia. PAST HISTORY: 1. Previous pacemaker. 2. Previous myocardial infarction. 3. Previous stroke with right-sided weakness and aphasia. MEDICATIONS: He was taking Eliquis, carvedilol, atorvastatin. PHYSICAL EXAMINATION: GENERAL: This is a cooperative elderly gentleman, looks comfortable now. He as mentioned is nonverbal. VITAL SIGNS: His blood pressure 150/73 and pulse 90 and it is regular. LUNGS: Clear. CARDIAC: Normal S1 and normal S2. ABDOMEN: Soft and nontender. EXTREMITIES: Warm and dry. No clubbing or cyanosis. There is no significant edema. PERTINENT LABORATORY DATA: Hemoglobin is 9.3. Creatinine is still greater than 25. CO2 is 16, it was 12 yesterday. Previous echocardiogram showed ejection fraction of 30% to 35%. EKG reveals atrial fibrillation with intermittent episodes of ventricular tachycardia. Chest x-ray, looks like a biventricular pacemaker. ASSESSMENT: 1. Acute renal failure. 2. Myocardial infarction, type 2, demand ischemia. 3. Previous stroke. 4. Metastatic prostate cancer. 5. Nonsustained ventricular tachycardia. PLAN: 1. From reading the chart, efforts are being made to consider placing him on hospice. 2. Echocardiogram and check pacemaker. No other recommendations presently. Prognosis obviously is very poor in this gentleman. Job ID: [id number]
--- NOTE | 2019-05-22 11:06 | PRG ---
DATE OF SERVICE: 05/22/2019 SERVICE: Nephrology. SUBJECTIVE: A 68-year-old male with metastatic prostate cancer, who declined treatment, admitted due to difficulty urination and generalized weakness as well as poor oral intake and weight loss. The patient was found to have bladder distention as well as bilateral hydronephrosis associated with markedly elevated BUN and creatinine. Had Kolb catheter placement with drainage of urine. The patient has prior CVA associated with aphasia and he remains nonverbal. There was no new problem overnight. OBJECTIVE: VITAL SIGNS: Temperature 98.1, pulse 94, respiratory rate 13, SpO2 of 98% on room air, blood pressure is 157/73. GENERAL: Chronically ill-looking male, in no obvious distress. Afebrile. Anicteric. Acyanotic. HEENT: Normocephalic, atraumatic. Oral mucosa is dry. CARDIOVASCULAR: Regular rhythm and rate with normal heart sounds 1 and 2. RESPIRATORY: Fair air entry bilaterally with some transmitted breath sounds, but no obvious crackle or rhonchi or use of accessory muscles. GI: Full, soft, nontender with hypoactive bowel sounds. UROGENITAL: Kolb catheter is in place draining some bloody urine. EXTREMITIES: Diffuse muscular atrophy noted, but no edema or erythema. SECURITY SOFTWARE ENGINEER: Conscious and awake. The patient is aphasic. He responds to written messages by jerking the head or nodding. DIAGNOSTIC DATA: CBC today showed WBC count of 8.1, hemoglobin of 9.3, platelet of 245. CMP today showed sodium 136, potassium 4.3, chloride 97, CO2 of 16, BUN 158, creatinine more than 25, glucose 111, calcium 8.4, total bilirubin 0.9, AST 9, ALT less than 7, alkaline phosphatase 69, total protein 6.6, albumin 3.4, globulin 3.2. ASSESSMENT: 1. Acute renal failure. The patient had creatinine more than 25. Of note, creatinine was 1.0 on December 12, 2018. This is felt to be due to obstructive uropathy as well as dehydration. The patient has not been eating or drinking much for several weeks. 2. Obstructive uropathy due to prostate cancer and bladder outlet obstruction. 3. Severe dehydration and volume depletion. 4. Marked azotemia. 5. Status post colostomy. 6. Metabolic acidosis due to renal failure. 7. Metastatic prostate cancer. PLAN: 1. We will continue IV fluid therapy. We will however change to half NS plus sodium bicarbonate to run at 200 mL/h. 2. We will monitor intake and output. 3. Urology consult is recommended. 4. The patient's overall prognosis is poor. He had declined aggressive treatment of metastatic cancer previously. The patient should be best served with hospice care. Palliative Care consult has been consulted. We will recheck renal function in the morning. We will also get CPK to rule out rhabdomyolysis. Further treatment to follow depending on hospital course. Job ID: [id number]
[2019-05-22] MEDS: Sodium Bicarbonate 50 MEQ in Sodium Chloride 0.45% 1,000 ML IV SCH (11:11)
[2019-05-22 11:36] VITALS: BMI 24.0
--- NOTE | 2019-05-22 14:04 | PDOC.HOSPP ---
- Subjective Encounter Date: 05/22/19 Encounter Time: 13:56 Subjective: Pt seen for followup re: acute renal failure. Pt nonverbal, communicates with white board. Denies any complaints. - Objective Vital Signs & Weight: Vital Signs (12 hours) Temp Pulse Resp BP BP Pulse Ox 05/22/19 11:18 97.5 F L 80 15 151/76 H 100 05/22/19 09:37 144/69 H 05/22/19 07:52 98.1 F 94 13 157/73 H 100 05/22/19 03:39 97.7 F 84 18 153/77 H 98 Weight Admit Weight 167 lb 8.821 oz Weight 167 lb 8.821 oz Result Diagrams: 05/22/19 04:11 05/22/19 04:11 Additional Labs: labs and MARs reviewed by me EKG Reviewed by me: Yes (Tele: NSR) Hospitalist ROS - Review of Systems Cardiovascular: denies: chest pain, palpitations, orthopnea, paroxysmal noc. dyspnea Gastrointestinal: denies: nausea, vomiting, abdominal pain, diarrhea, constipation, melena - Medication Medications: Active Medications Generic Name Dose Route Start Last Admin Trade Name Freq PRN Reason Stop Dose Admin Acetaminophen 650 mg 05/21/19 20:10 05/22/19 11:16 Tylenol PO 650 mg Q4H PRN Administration Headache/Fever/Mild Pain (1-3) Famotidine 20 mg 05/21/19 21:00 05/22/19 03:33 Pepcid PO Not Given HS [facility] Sodium Bicarbonate 50 meq/ 1,050 mls @ 200 mls/hr 05/22/19 10:30 05/22/19 11: 11 Sodium Chloride IV 1,050 mls INF [facility] Administration - Exam General Appearance: NAD Eye: anicteric sclera ENT: moist mucosa Neck: supple Heart: RRR Respiratory: CTAB Gastrointestinal: soft, non-tender Psychiatric: normal affect, normal behavior Hosp A/P (1) KVNG (acute kidney injury) Code(s): N17.9 - ACUTE KIDNEY FAILURE, UNSPECIFIED Status: Acute (2) Metabolic acidosis Code(s): E87.2 - ACIDOSIS Status: Acute (3) NSTEMI (non-ST elevated myocardial infarction) Code(s): I21.4 - NON-ST ELEVATION (NSTEMI) MYOCARDIAL INFARCTION Status: Acute (4) History of CVA (cerebrovascular accident) Code(s): Z86.73 - PRSNL HX OF TIA (TIA), AND CEREB INFRC W/O RESID DEFICITS Status: Chronic (5) Metastatic adenocarcinoma to prostate Code(s): C79.82 - SECONDARY MALIGNANT NEOPLASM OF GENITAL ORGANS Status: Chronic
[2019-05-22] MEDS: traMADol HCl 50 MG TAB PO SCH ×2 (20:58→21:10)
[2019-05-22] MEDS: cefTRIAXone\\ROCEPHIN 1 GM in Sodium Chloride 0.9% 100 ML IVPB SCH (20:59)
[2019-05-22] MEDS: rOPINIRole HCl 1 MG TAB PO SCH (21:02)
[2019-05-23] MEDS: Sodium Bicarbonate 50 MEQ in Sodium Chloride 0.45% 1,000 ML IV SCH (03:51)
[2019-05-23 05:14] LABS: Albumin 3.5 g/dL (3.4-4.8); Anion Gap 28 mmol/L (10-20); Calcium 8.1 mg/dL (7.8-10.44); Carbon Dioxide 16 mmol/L (23-31); Chloride 95 mmol/L (98-107); Glucose 92 mg/dL (80-115); Potassium 4.6 mmol/L (3.5-5.1); Sodium 134 mmol/L (136-145)
[2019-05-23 05:27] LABS: BUN (Urea Nitrogen) 150 mg/dL (8.4-25.7)
[2019-05-23 05:35] LABS: Calc. Creatinine Clearance 3 mL/min (70-130); Estimated GFR-MDRD 2
[2019-05-23] MEDS ORDERED: Sodium Bicarbonate 75 MEQ in Sodium Chloride 0.45% 1,000 ML IV SCH (05:57)
[2019-05-23] MEDS ORDERED: Lorazepam 2 MG/ML VIAL ONE (08:13)
[2019-05-23] MEDS: rOPINIRole HCl 1 MG TAB PO SCH ×4 (09:25→22:11)
[2019-05-23] MEDS: Acetaminophen 325 MG TAB PO PRN (10:09)
--- NOTE | 2019-05-23 15:48 | PDOC.HOSPP ---
- Subjective Encounter Date: 05/23/19 Encounter Time: 08:00 Subjective: Pt seen various times today, including during Code green. lethargic, unable to communicate with white board. - Objective Vital Signs & Weight: Vital Signs (12 hours) Temp Pulse Resp BP BP Pulse Ox 05/23/19 11:36 97.9 F 92 16 138/79 96 05/23/19 07:19 98.1 F 88 17 177/75 H 96 05/23/19 04:00 98.9 F 93 20 159/72 H 94 L Weight Admit Weight 167 lb 8.821 oz Weight 167 lb 8.821 oz I&O: 05/22/19 05/23/19 05/24/19 06:59 06:59 06:59 Intake Total 2120 Output Total 725 Balance 1395 Result Diagrams: 05/22/19 04:11 05/23/19 04:18 Additional Labs: Accuchecks 05/23/19 08:06 POC Glucose 111 H labs and MARs reviewed by me EKG Reviewed by me: Yes (Tele: irais wong) Hospitalist ROS - Review of Systems ROS unobtainable: due to mental status - Medication Medications: Active Medications Generic Name Dose Route Start Last Admin Trade Name Freq PRN Reason Stop Dose Admin Acetaminophen 650 mg 05/21/19 20:10 05/23/19 10:09 Tylenol PO 650 mg Q4H PRN Administration Headache/Fever/Mild Pain (1-3) Famotidine 20 mg 05/21/19 21:00 05/22/19 21:10 Pepcid PO Not Given HS [facility] Ceftriaxone Sodium 1 gm/ 100 mls @ 200 mls/hr 05/22/19 18:00 05/22/19 20:59 Sodium Chloride IVPB 100 mls 1800 [place] Administration Sodium Bicarbonate 75 meq/ 1,075 mls @ 200 mls/hr 05/23/19 05:57 05/23/19 12: 25 Sodium Chloride IV 1,075 mls INF [place] Administration Ropinirole HCl 1 mg 05/22/19 21:00 05/23/19 10:09 Requip PO 1 mg TID [place] Administration - Exam General Appearance: NAD Eye: anicteric sclera ENT: no oropharyngeal lesions Neck: supple Heart: irregular Respiratory: CTAB Gastrointestinal: soft Skin: no rashes Musculoskeletal: no muscle wasting Psychiatric: lethargic Hosp A/P (1) KVNG (acute kidney injury) Code(s): N17.9 - ACUTE KIDNEY FAILURE, UNSPECIFIED Status: Acute (2) Metabolic acidosis Code(s): E87.2 - ACIDOSIS Status: Acute (3) NSTEMI (non-ST elevated myocardial infarction) Code(s): I21.4 - NON-ST ELEVATION (NSTEMI) MYOCARDIAL INFARCTION Status: Acute (4) History of CVA (cerebrovascular accident) Code(s): Z86.73 - PRSNL HX OF TIA (TIA), AND CEREB INFRC W/O RESID DEFICITS Status: Chronic (5) Metastatic adenocarcinoma to prostate Code(s): C79.82 - SECONDARY MALIGNANT NEOPLASM OF GENITAL ORGANS Status: Chronic - Plan Plan is for hospice care. Discussed [facility]. Form filled out for approval. Prognosis poor.
[2019-05-23] MEDS: cefTRIAXone\\ROCEPHIN 1 GM in Sodium Chloride 0.9% 100 ML IVPB SCH (17:36)
[2019-05-23] MEDS: Famotidine 20 MG TAB PO SCH (22:11)
[2019-05-24 05:02] LABS: Anion Gap 30 mmol/L (10-20); Carbon Dioxide 13 mmol/L (23-31); Chloride 95 mmol/L (98-107); Glucose 90 mg/dL (80-115); Phosphorus 8.5 mg/dL (2.3-4.7); Potassium 4.5 mmol/L (3.5-5.1); Sodium 133 mmol/L (136-145)
[2019-05-24 05:09] LABS: Calc. Creatinine Clearance 3 mL/min (70-130); Estimated GFR-MDRD 2
[2019-05-24 05:22] LABS: BUN (Urea Nitrogen) 158 mg/dL (8.4-25.7)
[2019-05-24 05:23] LABS: Albumin 3.1 g/dL (3.4-4.8)
--- NOTE | 2019-05-24 09:07 | PRG ---
DATE OF SERVICE: 05/24/2019 SUBJECTIVE: Mr. Bryan is noted for his aphasic. The plan is to be sent home with hospice. OBJECTIVE: VITAL SIGNS: His blood pressure is elevated at 172/80, pulse 90. LUNGS: Clear. CARDIAC: No new murmur, rubs, or gallop. ASSESSMENT: 1. Prostate cancer. 2. End-stage renal disease with creatinine over 25. PLAN: We will discontinue telemetry. The patient is being seen by the Hospice. We will sign off, please re-consult if needed. Job ID: [id number]
[2019-05-24] MEDS: rOPINIRole HCl 1 MG TAB PO SCH ×2 (09:24→14:33)
[2019-05-24] MEDS: Acetaminophen 325 MG TAB PO PRN (11:40)
[2019-05-24] MEDS ORDERED: Metoclopramide HCl 10 MG/2 ML VIAL IVP SCH (14:15)
[2019-05-24 15:35] VITALS: BP 165/82; TEMP 97.6
[2019-05-24] MEDS: cefTRIAXone\\ROCEPHIN 1 GM in Sodium Chloride 0.9% 100 ML IVPB SCH (18:16)
--- NOTE | 2019-05-25 05:21 | DIS ---
DATE OF ADMISSION: 05/21/2019 DATE OF DISCHARGE: 05/24/2019 DISCHARGE DIAGNOSES: As of the following, 1. Acute kidney injury. 2. Metabolic acidosis. 3. Won-AX-ufewaeubw myocardial infarction. 4. History of cerebrovascular accident. 5. Metastatic adenocarcinoma of the prostate. HOSPITAL COURSE: The patient is a 68-year-old male, who initially presented to the hospital on May 22 with change in mental status. The patient does have a caregiver at bedside. He does have history of prostate cancer with metastasis and underwent a partial colectomy and also had a colostomy after developing a blockage. The patient per notes refused to take medications for this cancer. He does have a court-appointed guardian due to family changes and family dynamics. The patient at this time was treated with some IV hydration. Nephrology and Urology were consulted. Also, Cardiology was also consulted. The patient does have a history of atrial fibrillation and is on Eliquis. The patient had a CT of abdomen and pelvis, which indicated marked bilateral renal hydroureteronephrosis secondary to obstruction at the level of pelvic from huge pelvic adenopathy, huge rectal mass, evidence of known rectal cancer mass involved in the left side of the bladder worrisome for neoplastic involvement. At this time, the patient was seen by Cardiology, had an echocardiogram, which indicated an EF 55% to 60% with the tip of the apex thin and akinetic compatible with an old infarct. He was also in atrial fibrillation. Severely elevated pulmonary hypertension. Given his poor prognosis at this time, Palliative and Hospice were consulted. Family and guardian have agreed for the patient to go home with hospice. No interventions were done by Urology. The patient's creatinine is more than 25 and in November 2018, it was 1. The patient again will be discharged to home with hospice. Questions from family have been answered. MEDICATIONS: He is going to be on, 1. Atorvastatin 40 mg at bedtime. 2. Carvedilol 6.25 b.i.d. 3. Depakote 125 b.i.d. 4. Omeprazole 40 mg daily. 5. Ranitidine 150 mg twice a day. 6. Zinc oxide to buttocks area. PHYSICAL EXAMINATION: VITAL SIGNS: Temperature of 97.6, heart rate 78, respiratory rate 18, O2 saturation 97% on room air, and blood pressure 165/82. GENERAL: He is awake in bed, appears drowsy, but arousable. CV: S1 and S2 present. No murmurs, rubs, or gallops. LUNGS: Clear to auscultation. No rhonchi or wheezes noted. ABDOMEN: Soft and nontender. Bowel sounds are present x2. Again, he will be discharged to home with hospice and follow up with Hospice Services. Job ID: [id number]
== END 2019-05-24 18:25 | disposition hospice, home (50) | DRG 682 ==
LOC: ERS 11:50 → ERHOLD 16:34 → 2NO 23:02
PROVIDERS: ADMIT Family Medicine; ATTEND Family Medicine
DX: N17.9 Acute kidney failure, unspecified (principal); I21.A1 Myocardial infarction type 2; I69.351 Hemiplegia and hemiparesis following cerebral infarction affecting right dominant side; I42.9 Cardiomyopathy, unspecified; E87.2 Acidosis; I47.2 Ventricular tachycardia; I13.2 Hypertensive heart and chronic kidney disease with heart failure and with stage 5 chronic kidney disease, or end stage renal disease; C78.5 Secondary malignant neoplasm of large intestine and rectum; N18.6 End stage renal disease; N13.6 Pyonephrosis; Z95.0 Presence of cardiac pacemaker; I48.91 Unspecified atrial fibrillation; Z79.02 Long term (current) use of antithrombotics/antiplatelets; Z90.49 Acquired absence of other specified parts of digestive tract; G25.81 Restless legs syndrome; Z91.041 Radiographic dye allergy status; Z91.048 Other nonmedicinal substance allergy status; C61 Malignant neoplasm of prostate; I50.9 Heart failure, unspecified; G47.33 Obstructive sleep apnea (adult) (pediatric); I25.2 Old myocardial infarction; E86.0 Dehydration; N32.0 Bladder-neck obstruction
CPT/HCPCS: 36415; 36416; 70450; 71045; 74176; 80053; 80069; 81003; 81015; 82550; 82553; 83690; 83735; 83880; 84484; 85025; 85610; 87086; 93005; 93306; J0696; J2060; J2270; J2765; J3490; J7070